=== PATIENT | female | born 1960 | race Caucasian/White ===

== ENCOUNTER 2016-07-16 14:29 | Emergency (ER) | payer BC ==
[~2016-07-16] VITALS: Ht 167.6 cm; Wt 67.1 kg
[~2016-07-16 14:29] MED LIST: /WARF25TA; /WARF5TA; ACET65TA; ADVI200C5 PO; ADVI200T PO; ALBUTEROL INH; ASPI81CH PO; ASPI81TA7 PO; ASPI81TA85 PO; ASPIRIN PO; BACT800T5 PO; CALC500T21 PO; CALC600T21 PO; CALCCHW12; CALCIUM PO; CEFT2INJ IV; DOXY100T OR; FISH1000 PO; FISH100049 PO; FISH500C PO; FLUC10TA PO; GLUC500T; HEPA10PFSY IV; HUMA100I SC; HUMA75VL; HUMALOG INSULIN SC; INSUH10VL INJ; INSUHUMDS SC; INSULANT SC; INSULIN LANTUS SC; INSULIN NPH; INSULIN PUMP; Insulin pump; LANTUS INSULIN SC; LEVA500T; LISI-542 PO; LISI5TAB OR; LISI5TAB PO; METO10TA2 OR; MULTCAP PO; MULTCAP8 PO; MULTIVIT OR; MULTTAB4 PO; NOVOINJ3 SC; NOVOLOG100 MG/ML; OXYC10TA97; PERC5TAB8; PRIN10TA PO; SENO8.6T5; SKELAXIN PO; SLF IV; SYMBICORT INH; TALWIN NX PO; TYLE325T5 PO; VIT D 2000 OR; VIT D PO; VIT E PO; VITA100037 PO; VITA5ELUD PO; VITMTA PO; ZOCO10TA PO; ZOCO20TA PO; ZOFR4TAB3 SL; [UNRECOGNIZED DRUG - OTHER]
[2016-07-16 16:51] LABS: BASO % 0.3 % (0.0-1.0); EOS % 0.5 % (0.0-3.0); LARGE UNSTAINED CELL # 0.1 K/mm3 (0.0-0.4); LARGE UNSTAINED CELL % 1.4 % (0.0-4.0); LYMPH # 0.8 K/mm3 (1.5-4.5); MEAN CORPUSCULAR HEMOGLOBIN 31.4 pg (27.0-33.0); MEAN CORPUSCULAR VOLUME 95.3 fl (80.0-96.0); MONO # 0.3 K/mm3 (0.0-0.8); MONO % 2.8 % (0.0-5.0); NEUTROPHILS # 8.8 K/mm3 (1.8-7.7); NEUTROPHILS % 87.1 % (36.0-66.0); PLATELET COUNT, AUTOMATED 301 k/mm3 (150-450); RED CELL DISTRIBUTION WIDTH 13.8 % (11.5-14.5); WHITE BLOOD COUNT 10.1 K/mm3 (4.0-10.0)
--- NOTE | 2016-07-16 17:15 | REP ---
Duplex extremity venous ultrasound: Left lower extremity. History: Left leg pain and swelling. Findings: The deep veins are anechoic and fully compressible from the groin to the popliteal fossa in the left lower extremity. Color flow imaging is homogeneous. Spectral Doppler interrogation demonstrates intact respiratory variation in flow and normal manual augmentation of flow. There is no evidence of deep vein thrombosis. Impression: Negative left lower extremity duplex venous ultrasound. No evidence of deep vein thrombosis. Signed by Adan Bean MD 07/16/2016 05:07 P
[2016-07-16] MEDS: NS 1,000 ML IV ONE (17:18)
[2016-07-16] MEDS: CLINDAMYCIN 900 MG in APPROPRIATE DILUENT 1 EA IV ONE (17:19)
[2016-07-16 17:40] LABS: CALCIUM LEVEL 9.3 MG/DL (8.5-10.1); CREATININE FOR GFR 1.22 MG/DL (0.55-1.02); GLOMERULAR FILTRATION RATE 48.4 (>51); POTASSIUM SERUM 3.4 MEQ/L (3.5-5.1)
[2016-07-16] MEDS: ONDANSETRON 4MG/2ML VIAL (J2405) IV ONE (17:45)
[2016-07-16] MEDS ORDERED: ONDA4TAB6 PO (18:44)
[2016-07-16] MEDS ORDERED: CLEO300C2 PO (18:44)
[2016-07-16] MEDS ORDERED: NS 1,000 ML IV ONE (19:00)
[2016-07-16] MEDS ORDERED: ONDANSETRON 4MG/2ML VIAL (J2405) IV ONE (19:00)
[2016-07-16] MEDS ORDERED: KETOROLAC 30 MG/ML VIAL (J1885) IV ONE (19:00)
[2016-07-16 19:18] VITALS: BP 135/79
== END 2016-07-16 19:49 | disposition home or self-care (01) ==
LOC: M ED 15:27
DX: L03.116 Cellulitis of left lower limb (principal); R11.0 Nausea; E11.649 Type 2 diabetes mellitus with hypoglycemia without coma; Z79.4 Long term (current) use of insulin
CPT/HCPCS: 80048; 83690; 85025; 87040; 87077; 87186; 93971; 96374; 96375; 96376; 99283; J2405

== ENCOUNTER 2016-07-18 12:05 | Inpatient (IN) | payer BC ==
[~2016-07-18] VITALS: Ht 170.2 cm; Wt 62.5 kg
[~2016-07-18 12:05] MED LIST changes: +CLEO300C2 PO; +ONDA4TAB6 PO
[2016-07-18] MEDS ORDERED: cefTRIAXone SOD 2 GM in D5W MINI-BAG PLUS 50 ML IV ONE (13:00)
[2016-07-18] MEDS ORDERED: VANCOMYCIN HCL 1,000 MG, VIAL MATE ADAPTER 1 EACH in D5W 250 ML IV ONE (13:00)
[2016-07-18 13:46] LABS: BASO % 0.2 % (0.0-1.0); EOS # 0.1 K/mm3 (0.0-0.50); EOS % 0.8 % (0.0-3.0); LARGE UNSTAINED CELL # 0.1 K/mm3 (0.0-0.4); LARGE UNSTAINED CELL % 1.2 % (0.0-4.0); LYMPH # 0.6 K/mm3 (1.5-4.5); LYMPH % 6.8 % (24.0-44.0); MEAN CORPUSCULAR HEMOGLOBIN 31.3 pg (27.0-33.0); MEAN CORPUSCULAR HGB CONC 32.5 g/dl (32.0-36.5); MEAN CORPUSCULAR VOLUME 96.3 fl (80.0-96.0); MONO # 0.3 K/mm3 (0.0-0.8); NEUTROPHILS # 7.5 K/mm3 (1.8-7.7); NEUTROPHILS % 87.9 % (36.0-66.0); PLATELET COUNT, AUTOMATED 344 k/mm3 (150-450); WHITE BLOOD COUNT 8.5 K/mm3 (4.0-10.0)
[2016-07-18 14:12] LABS: ALBUMIN 2.5 GM/DL (3.2-5.2); ALBUMIN/GLOBULIN RATIO 0.6 (1.00-1.93); BILIRUBIN,DIRECT 0.3 MG/DL (0.0-0.2); CALCIUM LEVEL 8.7 MG/DL (8.5-10.1); CREATININE FOR GFR 1.02 MG/DL (0.55-1.02); GLOMERULAR FILTRATION RATE 59.5 (>51); POTASSIUM SERUM 3.9 MEQ/L (3.5-5.1); TOTAL PROTEIN 6.7 GM/DL (6.4-8.2)
[2016-07-18 14:43] LABS: ERYTHROCYTE SEDIMENTATION RATE 82 mm/hr (0-30)
[2016-07-18] MEDS ORDERED: NS 1,000 ML IV ONE (14:45)
[2016-07-18] MEDS ORDERED: HumuLIN R (REGULAR) INSULIN (NovoLIN R) **100U/ML** PER UNIT IV ONE (15:00)
[2016-07-18] MEDS ORDERED: ASPI81TA85 PO (15:06)
[2016-07-18] MEDS ORDERED: INSULANT SC (15:06)
[2016-07-18] MEDS ORDERED: DEXTROSE 50% 50 ML SYRINGE IV PRN (15:30)
[2016-07-18] MEDS ORDERED: GLUCAGON FOR INJ 1 MG VIAL (J1610) SC PRN (15:30)
[2016-07-18] MEDS ORDERED: GLUCOSE 4 GM CHEW TABLET PO PRN (15:30)
[2016-07-18] MEDS ORDERED: ACETAMINOPHEN TAB 650MG DOSE (2X325MG) PO PRN (15:30)
--- NOTE | 2016-07-18 16:12 | HPE ---
DATE OF ADMISSION: 07/18/2016 PRIMARY CARE PROVIDER: Dr. Yordan Leonard at [facility]. CHIEF COMPLAINT: Left foot infection. HISTORY OF PRESENT ILLNESS: This is a 55-year-old female patient with underlying medical history of hypertension, insulin-dependent diabetes with history of diabetic ketoacidosis (DKA) and hypoglycemia. Patient was seen in the emergency room on July 16 this month for left lower extremity, left foot, around the ankle area and shields area, redness and swelling. Had an ultrasound Doppler that is negative for deep vein thrombosis (DVT). Started on clindamycin for treatment. Subsequently discharged from the emergency room. Was sent in again by primary care provider for worsening redness extending up to shields. As per patient, initially was around the ankle. Patient denies any trauma to the area. No recent travel. No sick contacts. No scratches. No injury. Ultrasound Doppler on July 16 negative for DVT. Patient sees Dr. Momin for podiatry. Patient denies any fevers or chills. Denies any chest pain, pressure, or discomfort, palpitations, trouble breathing. Denies any nausea or vomiting. Tolerating oral. No prolonged immobility. Baseline ambulatory. ALLERGIES: PENICILLIN with hives, and eggs. PAST MEDICAL HISTORY: 1. Hypertension. 2. Insulin-dependent diabetes. 3. Dyslipidemia. 4. History of DKA and hypoglycemia. PAST SURGICAL HISTORY: 1. Tonsillectomy. 2. Cataract surgery. 3. section. 4. Left hip surgery years ago. SOCIAL HISTORY: Patient denies smoking, alcohol, drinking, intravenous (IV) drug use. Lives at home with family. FAMILY HISTORY: Noncontributory. REVIEW OF SYSTEMS: Negative except for those mentioned in the history of present illness (HPI). HOME MEDICATIONS: - aspirin 81 mg by mouth daily - calcium carbonate 600 mg by mouth daily - clindamycin 300 mg by mouth four times a day - fish oil 1000 mg by mouth daily - Lantus 23 units subcutaneous at bedtime - Humalog subcutaneous before meals and at bedtime - lisinopril 5 mg by mouth daily - multivitamin one tablet by mouth daily - vitamin D 1000 units by mouth daily PHYSICAL EXAMINATION: VITAL SIGNS: Temperature 97.8, pulse 100, respirations 16, blood pressure 94/53, pulse oximetry 96% on room air. GENERAL: Patient alert and oriented times three in no acute distress. HEENT: Normocephalic, atraumatic. PULMONARY: Bilaterally clear to auscultation. Cardiac Regular rate and rhythm. Normal S1, S2. ABDOMEN: Soft, nontender, nondistended. Positive bowel sounds. EXTREMITIES: Right lower extremity first digit with a cut. Does not look erythematous. Healing. Left lower extremity from the dorsum of the foot extending up to the lower one-third shields with erythema and warmth, mild swelling. Mildly tender to palpation. No abscess or induration detected. LABORATORY DATA: WBC 8.5, hemoglobin and hematocrit 13.1/40.4, platelets 344. ESR 82. CRP 11.1. Sodium 135, potassium 3.9, chloride 99, bicarbonate 23, BUN 13, creatinine 1.02, glucose 445. ASSESSMENT AND PLAN: This is a 73-year-old female patient with underlying medical history of diabetes, hypertension, history of diabetic ketoacidosis (DKA), admitted with left lower extremity cellulitis. 1. Lower extremity edema cellulitis. Patient not septic. Culture has been reviewed. Previously culture Staphylococcus aureus resistant to clindamycin. Will put the patient on Teflaro right now. Patient received Rocephin and azithromycin by emergency room. Intravenous (IV) fluids for hydration. Followup cultures. Currently preliminarily growing Staphylococcus aureus. Lactic acid negative. Will followup C-reactive protein. 2. Hyperglycemia with borderline anion gap and diabetes. Followup A1c, IV fluids. Insulin 6 units given. Fingersticks every 2 hours. Will continue to monitor to see if patient requires insulin drip. In the meantime, will continue Lantus basal bolus insulin, followup fingersticks. 3. Hypertension. Patient currently normotensive. Continue home medication and aspirin. 4. Deep vein thrombosis (DVT) prophylaxis. Lovenox subcutaneous. DISPOSITION: Pending clinical improvement, final cultures.
[2016-07-18 17:10] VITALS: BP 116/58
[2016-07-18] MEDS: HumaLOG INSULIN (NovoLOG) PER UNIT SC SCH ×2 (17:11→20:51)
[2016-07-18] MEDS: NS 1,000 ML IV SCH (17:11)
[2016-07-18] MEDS: ENOXAPARIN 30 MG/0.3 ML SYR (J1650) SC SCH (17:11)
[2016-07-18] MEDS: DOCUSATE SODIUM 100 MG CAP PO SCH (20:44)
[2016-07-18] MEDS: CEFTAROLINE FOSAMIL 600 MG in D5W MINI-BAG PLUS 50 ML IV SCH (20:52)
[2016-07-18] MEDS ORDERED: LEVEMIR (INSULIN DETEMIR) 1 UNITS/0.01ML SC SCH (21:00)
[2016-07-18 22:00] VITALS: BP 106/55
[2016-07-19] MEDS: NS 1,000 ML IV SCH ×2 (02:15→12:48)
[2016-07-19 06:00] VITALS: BP 115/54
[2016-07-19 06:26] LABS: MEAN CORPUSCULAR HEMOGLOBIN 31.6 pg (27.0-33.0); MEAN CORPUSCULAR HGB CONC 33.3 g/dl (32.0-36.5); MEAN CORPUSCULAR VOLUME 94.8 fl (80.0-96.0); RED CELL DISTRIBUTION WIDTH 13.1 % (11.5-14.5); WHITE BLOOD COUNT 8.3 K/mm3 (4.0-10.0)
[2016-07-19 06:51] LABS: ANION GAP 7 MEQ/L (8-16); BLOOD UREA NITROGEN 11 MG/DL (7-18); CALCIUM LEVEL 8.3 MG/DL (8.5-10.1); CARBON DIOXIDE LEVEL 27 MEQ/L (21-32); CHLORIDE LEVEL 106 MEQ/L (98-107); CREATININE FOR GFR 0.51 MG/DL (0.55-1.02); GLOMERULAR FILTRATION RATE > 60.0 (>51); GLUCOSE, FASTING 65 MG/DL (70-105); POTASSIUM SERUM 4.1 MEQ/L (3.5-5.1); SODIUM LEVEL 140 MEQ/L (136-145)
[2016-07-19] MEDS: HumaLOG INSULIN (NovoLOG) PER UNIT SC SCH ×4 (07:30→20:45)
[2016-07-19] MEDS: CEFTAROLINE FOSAMIL 600 MG in D5W MINI-BAG PLUS 50 ML IV SCH ×2 (08:47→20:44)
[2016-07-19] MEDS: ENOXAPARIN 30 MG/0.3 ML SYR (J1650) SC SCH (08:48)
[2016-07-19] MEDS: ASPIRIN 81 MG ENTERIC TAB PO SCH (08:48)
[2016-07-19] MEDS: VITAMIN D 1,000 INTERNATIONAL UNITS TABLET PO SCH (08:48)
[2016-07-19] MEDS: LISINOPRIL 5 MG TAB PO SCH (08:48)
[2016-07-19] MEDS: OMEGA-3 1050MG CAPSULE PO SCH (08:48)
[2016-07-19] MEDS: MULTIVITAMINS/MINERALS THERAP 1 TAB PO SCH (08:48)
[2016-07-19] MEDS: DOCUSATE SODIUM 100 MG CAP PO SCH ×2 (08:48→20:43)
[2016-07-19 14:00] VITALS: BP 120/60
--- NOTE | 2016-07-19 15:25 | IPN ---
DATE: 07/19/2016 Patient is seen and examined. No acute events overnight. Denies any fever, chills, chest pain, pressure, or discomfort. Reported left lower extremity cellulitis much improved. Denies any significant pain, tolerating oral. VITAL SIGNS: Temperature 99.6, maximum temperature (Tmax) 103, pulse 85, respirations 18, blood pressure 115/54, pulse oximetry 97% on room air. LABORATORY DATA: WBC 8.3, hemoglobin and hematocrit 11.8/35.5, platelets 395. Chemistry: Sodium 140, potassium 4.1, chloride 106, bicarbonate 27, BUN 11, creatinine 0.5, A1c 13.1, C-reactive protein 8.8. PHYSICAL EXAMINATION: GENERAL: Patient alert and oriented times three, in no acute distress, frail. PULMONARY: Bilaterally clear to auscultation. CARDIAC: Regular rate and rhythm, normal S1, S2. ABDOMEN: Soft, nontender, nondistended. Positive bowel sounds. EXTREMITIES: Right lower extremity first digit cut, does not look erythematous, healing. Left lower extremity from dorsum of the foot extending up to lower shields with erythema and warmth, much improved. ASSESSMENT AND PLAN: This is a 55-year-old female patient with underlying medical history of diabetes, hypertension, history of diabetic ketoacidosis (DKA), admitted for left lower extremity cellulitis. 1. Left lower extremity cellulitis. Patient is not septic. Failure of outpatient treatment. Patient currently on Teflaro. Previous culture positive for Staphylococcus aureus that is resistant to clindamycin. At this time culture shows Staphylococcus aureus is sensitive to clindamycin but currently will continue Teflaro. Intravenous (IV) fluids have been given. Patient received Rocephin and vancomycin in the emergency room. Lactic acid negative. If patient continues to improve, will discharge the patient on oral medications tomorrow. Followup C-reactive protein. 2. Hyperglycemia with borderline anion gap and diabetes. Anion gap has returned to normal. A1c is still elevated. Counseling patient regarding importance of glucose control. Needs close outpatient followup. Intravenous (IV) fluids initially provided. Currently on basal bolus insulin, followup finger sticks, adjust as needed. 3. Hypertension. Currently normotensive. Continue home medications and aspirin. 4. Deep venous thrombosis (DVT) prophylaxis. Lovenox subcutaneous. DISPOSITION PLANNING: Pending clinical improvement. Likely discharge in the next 24-48 hours.
[2016-07-19] MEDS ORDERED: LEVEMIR (INSULIN DETEMIR) 1 UNITS/0.01ML SC SCH ×2 (21:00)
[2016-07-19 22:00] VITALS: BP 118/65
[2016-07-20 06:00] VITALS: BP 131/68
[2016-07-20 06:22] LABS: MEAN CORPUSCULAR HEMOGLOBIN 32.2 pg (27.0-33.0); MEAN CORPUSCULAR HGB CONC 33.4 g/dl (32.0-36.5); MEAN CORPUSCULAR VOLUME 96.2 fl (80.0-96.0); RED CELL DISTRIBUTION WIDTH 13.4 % (11.5-14.5)
[2016-07-20 06:40] LABS: ANION GAP 9 MEQ/L (8-16); BLOOD UREA NITROGEN 8 MG/DL (7-18); CALCIUM LEVEL 8.2 MG/DL (8.5-10.1); CARBON DIOXIDE LEVEL 25 MEQ/L (21-32); CHLORIDE LEVEL 108 MEQ/L (98-107); CREATININE FOR GFR 0.46 MG/DL (0.55-1.02); GLOMERULAR FILTRATION RATE > 60.0 (>51); GLUCOSE, FASTING 70 MG/DL (70-105); MAGNESIUM LEVEL 2.1 MG/DL (1.8-2.4); POTASSIUM SERUM 3.9 MEQ/L (3.5-5.1); SODIUM LEVEL 142 MEQ/L (136-145)
[2016-07-20] MEDS: HumaLOG INSULIN (NovoLOG) PER UNIT SC SCH (07:30)
[2016-07-20] MEDS: MULTIVITAMINS/MINERALS THERAP 1 TAB PO SCH (08:05)
[2016-07-20] MEDS: ENOXAPARIN 30 MG/0.3 ML SYR (J1650) SC SCH (08:05)
[2016-07-20] MEDS: ASPIRIN 81 MG ENTERIC TAB PO SCH (08:05)
[2016-07-20] MEDS: OMEGA-3 1050MG CAPSULE PO SCH (08:05)
[2016-07-20] MEDS: CEFTAROLINE FOSAMIL 600 MG in D5W MINI-BAG PLUS 50 ML IV SCH (08:05)
[2016-07-20 08:06] VITALS: BP 131/68
[2016-07-20] MEDS: VITAMIN D 1,000 INTERNATIONAL UNITS TABLET PO SCH (08:06)
[2016-07-20] MEDS: DOCUSATE SODIUM 100 MG CAP PO SCH (08:06)
[2016-07-20] MEDS: LISINOPRIL 5 MG TAB PO SCH (08:06)
[2016-07-20] MEDS ORDERED: DOXY-278 PO (08:26)
[2016-07-20] MEDS ORDERED: CEFD1CAP8 PO (08:26)
--- NOTE | 2016-07-20 10:50 | DSES ---
DATE OF ADMISSION: 07/18/2016 DATE OF DISCHARGE: 07/20/2016 PRIMARY CARE PROVIDER: Yordan Leonard at the resident [facility]. FINAL DIAGNOSES: Left lower extremity cellulitis. Poorly controlled diabetes with hypoglycemia. Hypertension. HISTORY OF PRESENT ILLNESS: This is a 55-year-old female patient with underlying medical history of hypertension, insulin dependent diabetes with history of diabetic ketoacidosis (DKA) and hypoglycemia. The patient was seen in the emergency room on 07/16/2016 for left lower extremity cellulitis involving around the ankle and significant redness and swelling. Ultrasound Doppler was negative for deep vein thrombosis (DVT). The patient was placed on clindamycin for treatment. Subsequently discharged from the emergency room. Was sent in by primary care provider for worsening redness extending up to the higher level. As per patient, initially it was around the ankle, currently progressing to shields. No trauma to the area. No recent travel or sick contacts. No scratches or injury. Skin does appear to be dry. The patient sees Dr. Momin for podiatry. Denies any fevers or chills, chest pain, pressure or discomfort, nausea or vomiting. Tolerating oral. HOSPITAL COURSE: The patient was admitted to the hospital and initially started Teflaro. Cultures from 07/16/2016 have been appreciated with Staphylococcus Aureus. Previous culture revealed the patient previously had Staphylococcus Aureus that was resistant to clindamycin. Fortunately, this time the Staphylococcus Aureus was sensitive to clindamycin. Patient on Teflaro with no complications. Does have nonspecific penicillin allergies. Methicillin-resistant Staphylococcus aureus (MRSA) screening negative with resolution of C-reactive protein. The patient's sugars are better controlled after additional insulin dose and IV fluids. A1c was shown to be 13.1. The patient's fasting glucose was on the lower side, but the patient's glucose throughout the day has been elevated at 200 to 300 range. Counseling was provided. Patient continues comfortable, afebrile. Tolerating oral in no acute distress. VITAL SIGNS: Temperature 98.5, pulse 82, respirations 17, blood pressure 131/68, pulse oximetry 96% on room air. LABORATORIES: WBC 6, hemoglobin and hematocrit 11/33, platelets 356. Chemistries: Sodium 142, potassium 3.9, chloride 108, bicarb 25, BUN 8, creatinine 0.46, C-reactive protein from 11.1 down to 5.23. DISCHARGE MEDICATIONS: - cefdinir 300 mg by mouth twice a day - doxycycline 100 mg by mouth twice a day for 10 more days Continue home medications of: - aspirin 81 mg by mouth daily - calcium carbonate 600 mg by mouth daily - fish oil 1000 mg by mouth daily - Lantus insulin 23 units subcu at bedtime - Humalog mealtime via scale - lisinopril 5 mg by mouth daily - multivitamin one tablet by mouth daily - vitamin D 1000 units by mouth daily has been continued DISCHARGE INSTRUCTIONS: The patient was instructed to followup with primary care provider in seven days. Return to the hospital if symptoms worsen and also instructed to take a fingerstick log and followup with marble coper for better control of patient's glucose. Given patient's fingerstick during her hospital stay, the patient probably will need a lot more mealtime coverage with reduced basal coverage.
== END 2016-07-20 10:16 | disposition home or self-care (01) | DRG 383 ==
LOC: M ED 13:30 → M ED INP 15:27 → M MSPAV 17:01
PROVIDERS: ADMIT Hospitalist; ATTEND Hospitalist
DX: L03.116 Cellulitis of left lower limb (principal); E11.65 Type 2 diabetes mellitus with hyperglycemia; I10 Essential (primary) hypertension; B95.61 Methicillin susceptible Staphylococcus aureus infection as the cause of diseases classified elsewhere; Z79.82 Long term (current) use of aspirin; Z79.899 Other long term (current) drug therapy; Z79.4 Long term (current) use of insulin; Z88.0 Allergy status to penicillin; Z91.012 Allergy to eggs

== ENCOUNTER 2016-07-24 19:28 | Emergency (ER) | payer BC ==
[~2016-07-24] VITALS: Ht 170.2 cm; Wt 68.0 kg
[~2016-07-24 19:28] MED LIST changes: +CEFD1CAP8 PO; +DOXY-278 PO
[2016-07-24] MEDS ORDERED: NS 500 ML IV ONE (21:45)
[2016-07-24] MEDS ORDERED: ONDANSETRON 4 MG ORAL DISINTEGRATING TAB (S0181) PO ONE (21:45)
[2016-07-24] MEDS ORDERED: ONDANSETRON 4MG/2ML VIAL (J2405) IV ONE (21:45)
[2016-07-24 22:54] LABS: MEAN CORPUSCULAR HEMOGLOBIN 31.8 pg (27.0-33.0); MEAN CORPUSCULAR HGB CONC 32.8 g/dl (32.0-36.5); MEAN CORPUSCULAR VOLUME 96.9 fl (80.0-96.0); RED CELL DISTRIBUTION WIDTH 13.3 % (11.5-14.5); WHITE BLOOD COUNT 3.9 K/mm3 (4.0-10.0)
[2016-07-24 23:19] LABS: ALBUMIN 2.4 GM/DL (3.2-5.2); ALBUMIN/GLOBULIN RATIO 0.57 (1.00-1.93); ALKALINE PHOSPHATASE 133 U/L (45-117); ALT/SGPT 11 U/L (12-78); ANION GAP 9 MEQ/L (8-16); AST/SGOT 13 U/L (15-37); BILIRUBIN,DIRECT 0.1 MG/DL (0.0-0.2); BILIRUBIN,TOTAL 0.4 MG/DL (0.2-1.0); BLOOD UREA NITROGEN 9 MG/DL (7-18); CALCIUM LEVEL 8.4 MG/DL (8.5-10.1); CARBON DIOXIDE LEVEL 28 MEQ/L (21-32); CHLORIDE LEVEL 101 MEQ/L (98-107); CREATININE FOR GFR 0.63 MG/DL (0.55-1.02); GLOMERULAR FILTRATION RATE > 60.0 (>51); GLUCOSE, FASTING 136 MG/DL (70-105); POTASSIUM SERUM 3.9 MEQ/L (3.5-5.1); SODIUM LEVEL 138 MEQ/L (136-145); TOTAL PROTEIN 6.6 GM/DL (6.4-8.2)
[2016-07-24 23:48] VITALS: BP 150/85
== END 2016-07-24 23:58 | disposition home or self-care (01) ==
LOC: M ED 20:18
DX: K29.70 Gastritis, unspecified, without bleeding (principal); E11.9 Type 2 diabetes mellitus without complications; Z88.0 Allergy status to penicillin; Z91.012 Allergy to eggs; Z79.4 Long term (current) use of insulin; Z79.899 Other long term (current) drug therapy; Z79.82 Long term (current) use of aspirin; R51 Headache; E78.00 Pure hypercholesterolemia, unspecified; I10 Essential (primary) hypertension; E03.9 Hypothyroidism, unspecified
CPT/HCPCS: 36415; 80048; 80076; 85027; 96374; 99283; J2405

== ENCOUNTER → 2017-04-01 | Outpatient (CLI) | payer BC ==
[~2017-04-01] MED LIST changes: -CALC600T21 PO; +CALC600T60 PO; +CIPR-249 PO; +FLUTISP; +MUCI600T37 PO; +OCEA0.654; -VITA100037 PO; +VITA100067 PO
[2017-04-01 17:34] LABS: ALBUMIN 2.8 GM/DL (3.2-5.2); ALBUMIN/GLOBULIN RATIO 0.74 (1.00-1.93); ALKALINE PHOSPHATASE 117 U/L (45-117); ALT/SGPT 45 U/L (12-78); ANION GAP 8 MEQ/L (8-16); AST/SGOT 23 U/L (7-37); BILIRUBIN,TOTAL 1.1 MG/DL (0.2-1.0); BLOOD UREA NITROGEN 10 MG/DL (7-18); CALCIUM LEVEL 8.4 MG/DL (8.5-10.1); CARBON DIOXIDE LEVEL 28 MEQ/L (21-32); CHLORIDE LEVEL 103 MEQ/L (98-107); CREATININE FOR GFR 0.57 MG/DL (0.55-1.02); GLOMERULAR FILTRATION RATE > 60.0 (>51); GLUCOSE, FASTING 297 MG/DL (70-105); POTASSIUM SERUM 4.7 MEQ/L (3.5-5.1); SODIUM LEVEL 139 MEQ/L (136-145); TOTAL PROTEIN 6.6 GM/DL (6.4-8.2)
[2017-04-01 17:47] LABS: BASO % 1.1 % (0.0-1.0); EOS # 0.1 10^3/uL (0.0-0.50); EOS % 4.2 % (0.0-3.0); IMMATURE GRANULOCYTE % 0.4 % (0-0); LYMPH # 0.8 10^3/uL (1.5-4.5); LYMPH % 28.8 % (24.0-44.0); MEAN CORPUSCULAR HEMOGLOBIN 30.5 pg (27.0-33.0); MEAN CORPUSCULAR HGB CONC 31.9 g/dl (32.0-36.5); MEAN CORPUSCULAR VOLUME 95.6 fl (80.0-96.0); MONO # 0.2 10^3/uL (0.0-0.8); MONO % 8.1 % (0.0-5.0); NEUTROPHILS # 1.6 10^3/uL (1.8-7.7); NEUTROPHILS % 57.4 % (36.0-66.0); PLATELET COUNT, AUTOMATED 167 10^3/uL (150-450); RED CELL DISTRIBUTION WIDTH 14.3 % (11.5-14.5); WHITE BLOOD COUNT 2.9 10^3/uL (4.0-10.0)
== END ==
LOC: M WUC 14:35
PROVIDERS: ATTEND Student in an Organized Health Care Education/Training Program
DX: E10.621 Type 1 diabetes mellitus with foot ulcer (principal); R79.89 Other specified abnormal findings of blood chemistry

== ENCOUNTER → 2017-04-02 | Outpatient (REF) | payer BC | LOC: M SFHCPLAZ 11:58 | PROVIDERS: ATTEND Neuromusculoskeletal Medicine & OMM | DX: R60.0 Localized edema (principal) ==

== ENCOUNTER → 2017-04-15 | Outpatient (REF) | payer BC | LOC: M LAB REF 16:09 | PROVIDERS: ATTEND Surgery | DX: E10.621 Type 1 diabetes mellitus with foot ulcer (principal) ==

== ENCOUNTER → 2017-04-21 | Outpatient (CLI) | payer BC | LOC: M RAD 13:06 | PROVIDERS: ATTEND Surgery | DX: L97.512 Non-pressure chronic ulcer of other part of right foot with fat layer exposed (principal) ==

== ENCOUNTER 2017-06-01 05:01 | Emergency (ER) | payer BC ==
[2017-06-01 05:51] LABS: BEDSIDE GLUCOSE 182 MG/DL (70-105)
[2017-06-01 05:55] LABS: BASO % 0.3 % (0.0-1.0); HEMATOCRIT 41.6 % (36.0-47.0); HEMOGLOBIN 13.5 g/dl (12.0-16.0); IMMATURE GRANULOCYTE % 0.3 % (0-0); LYMPH # 0.7 10^3/uL (1.5-4.5); LYMPH % 17.6 % (24.0-44.0); MEAN CORPUSCULAR HEMOGLOBIN 29.6 pg (27.0-33.0); MEAN CORPUSCULAR HGB CONC 32.5 g/dl (32.0-36.5); MEAN CORPUSCULAR VOLUME 91.2 fl (80.0-96.0); MONO # 0.2 10^3/uL (0.0-0.8); MONO % 6.1 % (0.0-5.0); NEUTROPHILS # 2.8 10^3/uL (1.8-7.7); NEUTROPHILS % 75.7 % (36.0-66.0); PLATELET COUNT, AUTOMATED 168 10^3/uL (150-450); RED BLOOD COUNT 4.56 10^6/uL (4.00-5.40); RED CELL DISTRIBUTION WIDTH 13.6 % (11.5-14.5); WHITE BLOOD COUNT 3.7 10^3/uL (4.0-10.0)
[2017-06-01 06:17] LABS: ANION GAP 6 MEQ/L (8-16); BLOOD UREA NITROGEN 22 MG/DL (7-18); CARBON DIOXIDE LEVEL 29 MEQ/L (21-32); CHLORIDE LEVEL 103 MEQ/L (98-107); CREATININE FOR GFR 0.72 MG/DL (0.55-1.02); GLOMERULAR FILTRATION RATE > 60.0 (>51); GLUCOSE, FASTING 185 MG/DL (70-100); POTASSIUM SERUM 5.1 MEQ/L (3.5-5.1); SODIUM LEVEL 138 MEQ/L (136-145)
[2017-06-01 06:17] LABS: AMMONIA < 10 uMOL/L (<32)
[2017-06-01 06:21] LABS: LACTIC ACID SEPSIS PROTOCOL 2.4 MMOL/L (0.4-2.0)
[2017-06-01] MEDS: NS 1,000 ML IV (06:45)
[2017-06-01 06:55] LABS: APPEARANCE, URINE CLEAR (CLEAR); BACTERIA, URINE AUTO NEGATIVE (NEGATIVE); BILIRUBIN, URINE AUTO NEGATIVE (NEGATIVE); BLOOD, URINE BLOOD 1+ (NEGATIVE); COLOR, URINE YELLOW (YELLOW); GLUCOSE, URINE (UA) AUTO 2+ mg/dL (NEGATIVE); KETONE, URINE AUTO NEGATIVE (NEGATIVE); LEUKOCYTE ESTERASE, URINE AUTO NEGATIVE (NEGATIVE); NITRITE, URINE AUTO NEGATIVE (NEGATIVE); PROTEIN, URINE AUTO 2+ mg/dL (NEGATIVE); RBC, URINE AUTO 2 /HPF (0-3); SPECIFIC GRAVITY URINE AUTO 1.017 (1.002-1.035); SQUAMOUS EPITHELIAL CELL UR AU 0 /HPF (0-6); UROBILINOGEN, URINE AUTO 0.2 mg/dL (0.0-2.0); WBC, URINE AUTO 2 /HPF (0-3)
[2017-06-01] MEDS: ACETAMINOPHEN TAB 650MG DOSE (2X325MG) PO (09:43)
[2017-06-01 10:19] LABS: INFLUENZA A AMPLIFICATION NEGATIVE (NEGATIVE); INFLUENZA B AMPLIFICATION NEGATIVE (NEGATIVE)
== END 2017-06-01 10:47 | disposition home or self-care (01) ==
LOC: M ED 05:01
DX: R53.83 Other fatigue (principal); E86.0 Dehydration; E11.9 Type 2 diabetes mellitus without complications; I10 Essential (primary) hypertension; Z86.31 Personal history of diabetic foot ulcer; Z79.4 Long term (current) use of insulin; Z79.899 Other long term (current) drug therapy; Z91.012 Allergy to eggs; Z88.0 Allergy status to penicillin
CPT/HCPCS: 71045

== ENCOUNTER → 2017-09-02 | Outpatient (REF) | payer BC | LOC: M LAB REF 09-03 13:20 | DX: E10.621 Type 1 diabetes mellitus with foot ulcer (principal) | CPT/HCPCS: 87186 ==

== ENCOUNTER → 2017-10-22 | Outpatient (CLI) | payer BC | LOC: M SLEEP 19:40 | DX: G47.33 Obstructive sleep apnea (adult) (pediatric) (principal) | CPT/HCPCS: 95810 ==

== ENCOUNTER → 2017-11-11 | Outpatient (REF) | payer BC | LOC: M LAB REF 13:58 | DX: E10.621 Type 1 diabetes mellitus with foot ulcer (principal) | CPT/HCPCS: 88305 ==

== ENCOUNTER → 2017-11-18 | Outpatient (REF) | payer BC ==
[2017-11-18 18:45] LABS: ALBUMIN/GLOBULIN RATIO 0.79 (1.00-1.93); ALKALINE PHOSPHATASE 78 U/L (45-117); ALT/SGPT 14 U/L (12-78); ANION GAP 9 MEQ/L (8-16); AST/SGOT 9 U/L (7-37); BILIRUBIN,TOTAL 0.7 MG/DL (0.2-1.0); BLOOD UREA NITROGEN 22 MG/DL (7-18); CALCIUM LEVEL 8.8 MG/DL (8.5-10.1); CARBON DIOXIDE LEVEL 29 MEQ/L (21-32); CHLORIDE LEVEL 107 MEQ/L (98-107); CREATININE FOR GFR 0.86 MG/DL (0.55-1.30); GLOMERULAR FILTRATION RATE > 60.0 (>51); GLUCOSE, FASTING 181 MG/DL (70-100); POTASSIUM SERUM 3.7 MEQ/L (3.5-5.1); SODIUM LEVEL 145 MEQ/L (136-145); TOTAL PROTEIN 6.8 GM/DL (6.4-8.2)
[2017-11-18 18:49] LABS: ESTIMATED AVERAGE GLUCOSE 235 MG/DL (60-110); HEMOGLOBIN A1c 9.8 %
[2017-11-18 19:15] LABS: HEMATOCRIT 38.2 % (36.0-47.0); HEMOGLOBIN 12.2 g/dl (12.0-15.5); MEAN CORPUSCULAR HGB CONC 31.9 g/dl (32.0-36.5); MEAN CORPUSCULAR VOLUME 90.7 fl (80.0-96.0); PLATELET COUNT, AUTOMATED 223 10^3/uL (150-450); RED BLOOD COUNT 4.21 10^6/uL (4.00-5.40); RED CELL DISTRIBUTION WIDTH 13.8 % (11.5-14.5); WHITE BLOOD COUNT 3.3 10^3/uL (4.0-10.0)
== END ==
LOC: M LAB REF 17:53
DX: E10.621 Type 1 diabetes mellitus with foot ulcer (principal)

== ENCOUNTER → 2017-11-20 | Outpatient (CLI) | payer BC | LOC: M RAD 06:30 | DX: L97.529 Non-pressure chronic ulcer of other part of left foot with unspecified severity (principal) | CPT/HCPCS: 93926 ==

== ENCOUNTER 2017-11-25 11:57 | Day surgery (SDC) | payer BC ==
[~2017-11-25 11:57] MED LIST changes: -/WARF25TA; -/WARF5TA; -ACET65TA; -ADVI200C5 PO; -ADVI200T PO; -ALBUTEROL INH; -ASPI81CH PO; -ASPI81TA7 PO; -ASPI81TA85 PO; -ASPIRIN PO; -BACT800T5 PO; -CALC500T21 PO; -CALC600T60 PO; -CALCCHW12; -CALCIUM PO; -CEFD1CAP8 PO; -CEFT2INJ IV; -CIPR-249 PO; -CLEO300C2 PO; -DOXY-278 PO; -DOXY100T OR; -FISH1000 PO; -FISH100049 PO; -FISH500C PO; -FLUC10TA PO; -FLUTISP; -GLUC500T; -HEPA10PFSY IV; -HUMA100I SC; -HUMA75VL; -HUMALOG INSULIN SC; -INSUH10VL INJ; -INSUHUMDS SC; -INSULANT SC; -INSULIN LANTUS SC; -INSULIN NPH; -INSULIN PUMP; -Insulin pump; -LANTUS INSULIN SC; -LEVA500T; +LIDOCAINE 2% MDV 20 ML VIAL As Ordered; -LISI-542 PO; -LISI5TAB OR; -LISI5TAB PO; -METO10TA2 OR; -MUCI600T37 PO; -MULTCAP PO; -MULTCAP8 PO; -MULTIVIT OR; -MULTTAB4 PO; -NOVOINJ3 SC; -NOVOLOG100 MG/ML; -OCEA0.654; -ONDA4TAB6 PO; -OXYC10TA97; -PERC5TAB8; -PRIN10TA PO; +PROPOFOL 200 MG/20 ML VIAL As Ordered; -SENO8.6T5; -SKELAXIN PO; -SLF IV; -SYMBICORT INH; -TALWIN NX PO; -TYLE325T5 PO; -VIT D 2000 OR; -VIT D PO; -VIT E PO; -VITA100067 PO; -VITA5ELUD PO; -VITMTA PO; -ZOCO10TA PO; -ZOCO20TA PO; -ZOFR4TAB3 SL; -[UNRECOGNIZED DRUG - OTHER]
[2017-11-25] MEDS: NS 1,000 ML IV (13:00)
[2017-11-25 13:07] LABS: BEDSIDE GLUCOSE 115 MG/DL (70-105)
== END 2017-11-25 14:35 | disposition home or self-care (01) ==
LOC: M OPP 11:57
DX: Z12.11 Encounter for screening for malignant neoplasm of colon (principal); I10 Essential (primary) hypertension; E10.8 Type 1 diabetes mellitus with unspecified complications; I27.20 Pulmonary hypertension, unspecified; Z79.4 Long term (current) use of insulin; Z79.899 Other long term (current) drug therapy; Z88.8 Allergy status to other drugs, medicaments and biological substances; Z91.030 Bee allergy status; Z91.012 Allergy to eggs; Z91.038 Other insect allergy status; Z83.3 Family history of diabetes mellitus; Z80.3 Family history of malignant neoplasm of breast; Z80.42 Family history of malignant neoplasm of prostate
CPT/HCPCS: 45378

== ENCOUNTER → 2017-12-07 | Outpatient (CLI) | payer BC | LOC: M SLEEP 19:36 | DX: G47.33 Obstructive sleep apnea (adult) (pediatric) (principal) | CPT/HCPCS: 95811 ==

== ENCOUNTER → 2018-01-29 | Outpatient (REF) | payer BC | LOC: M LAB REF 17:30 | DX: L03.032 Cellulitis of left toe (principal) | CPT/HCPCS: 87186 ==

== ENCOUNTER → 2018-04-15 | Outpatient (REF) | payer BC ==
[2018-04-15 15:45] LABS: HEMOGLOBIN 11.5 g/dl (12.0-15.5); MEAN CORPUSCULAR HGB CONC 32.9 g/dl (32.0-36.5); MEAN CORPUSCULAR VOLUME 91.4 fl (80.0-96.0); PLATELET COUNT, AUTOMATED 142 10^3/uL (150-450); RED BLOOD COUNT 3.83 10^6/uL (4.00-5.40); RED CELL DISTRIBUTION WIDTH 14.3 % (11.5-14.5); WHITE BLOOD COUNT 3.4 10^3/uL (4.0-10.0)
[2018-04-15 16:07] LABS: ALBUMIN 3.2 GM/DL (3.2-5.2); ALKALINE PHOSPHATASE 62 U/L (45-117); ALT/SGPT 14 U/L (12-78); ANION GAP 3 MEQ/L (8-16); AST/SGOT 10 U/L (7-37); BILIRUBIN,TOTAL 0.7 MG/DL (0.2-1.0); BLOOD UREA NITROGEN 20 MG/DL (7-18); CALCIUM LEVEL 8.6 MG/DL (8.5-10.1); CARBON DIOXIDE LEVEL 33 MEQ/L (21-32); CHLORIDE LEVEL 108 MEQ/L (98-107); CREATININE FOR GFR 0.92 MG/DL (0.55-1.30); GLOMERULAR FILTRATION RATE > 60.0 (>51); GLUCOSE, FASTING 145 MG/DL (70-100); POTASSIUM SERUM 4.5 MEQ/L (3.5-5.1); SODIUM LEVEL 144 MEQ/L (136-145); TOTAL PROTEIN 6.4 GM/DL (6.4-8.2)
[2018-04-15 16:10] LABS: ESTIMATED AVERAGE GLUCOSE 209 MG/DL (60-110); HEMOGLOBIN A1c 8.9 %
== END ==
LOC: M SFHCPLAZ 14:33
DX: E10.29 Type 1 diabetes mellitus with other diabetic kidney complication (principal); I10 Essential (primary) hypertension
CPT/HCPCS: 80053

== ENCOUNTER 2018-06-22 15:07 | Inpatient (IN) | payer BC ==
[2018-06-21 23:07] VITALS: BP 186/94
[~2018-06-22] VITALS: Ht 170.2 cm; Wt 78.4 kg
[~2018-06-22 15:07] MED LIST changes: +/WARF25TA; +/WARF5TA; +ACET65TA; +ADVI200C5 PO; +ADVI200T PO; +ALBUTEROL INH; +ASPI81CH PO; +ASPI81TA7 PO; +ASPI81TA85 PO; +ASPIRIN PO; +BACT800T5 PO; +BYST2.5T2 PO; +CALC500T21 PO; +CALC600T60 PO; +CALCCHW12; +CALCIUM PO; +CEFD1CAP8 PO; +CEFT2INJ IV; +CIPR-249 PO; +CLEO300C2 PO; +DOXY-350 PO; +DOXY100T OR; +FISH1000 PO; +FISH100049 PO; +FISH500C PO; +FLUC10TA PO; +FLUTISP; +FURO20TA2 PO; +GLUC500T; +HEPA10PFSY IV; +HUMA100I SC; +HUMA75VL; +HUMALOG INSULIN SC; +INSUH10VL INJ; +INSUHUMDS SC; +INSULANT SC; +INSULIN LANTUS SC; +INSULIN NPH; +INSULIN PUMP; +Insulin pump; +LANTINJ4 SC; +LANTUS INSULIN SC; +LEVA500T; -LIDOCAINE 2% MDV 20 ML VIAL As Ordered; +LISI-542 PO; +LISI40TA PO; +LISI5TAB OR; +LISI5TAB PO; +METO10TA2 OR; +MUCI600T37 PO; +MULTCAP PO; +MULTCAP8 PO; +MULTIVIT OR; +MULTTAB4 PO; +NOVOINJ3 SC; +NOVOLOG100 MG/ML; +OCEA0.654; +ONDA4TAB5 PO; +ONDA4TAB6 PO; +OXYC10TA97; +PERC5TAB8; +PRIN10TA PO; -PROPOFOL 200 MG/20 ML VIAL As Ordered; +SENO8.6T5; +SKELAXIN PO; +SLF IV; +SYMBICORT INH; +TALWIN NX PO; +TYLE325T5 PO; +VIT D 2000 OR; +VIT D PO; +VIT E PO; +VITA100067 PO; +VITA50005 PO; +VITA5ELUD PO; +VITMTA PO; +ZOCO10TA PO; +ZOCO20TA PO; +ZOFR4TAB14 SL; +[UNRECOGNIZED DRUG - OTHER]
[2018-06-22 16:41] LABS: BASO % 0.2 % (0.0-1.0); HEMATOCRIT 41.3 % (36.0-47.0); HEMOGLOBIN 13.1 g/dl (12.0-15.5); LYMPH # 0.6 10^3/uL (1.5-4.5); LYMPH % 6.4 % (24.0-44.0); MEAN CORPUSCULAR HEMOGLOBIN 29.8 pg (27.0-33.0); MEAN CORPUSCULAR HGB CONC 31.7 g/dl (32.0-36.5); MEAN CORPUSCULAR VOLUME 94.1 fl (80.0-96.0); MONO # 0.5 10^3/uL (0.0-0.8); MONO % 4.7 % (0.0-5.0); NEUTROPHILS # 8.4 10^3/uL (1.8-7.7); NEUTROPHILS % 87.8 % (36.0-66.0); PLATELET COUNT, AUTOMATED 140 10^3/uL (150-450); RED BLOOD COUNT 4.39 10^6/uL (4.00-5.40); WHITE BLOOD COUNT 9.5 10^3/uL (4.0-10.0)
[2018-06-22] MEDS ORDERED: METOCLOPRAMIDE INJ 10MG/2ML VIAL (J2765) IV ONE (17:00)
[2018-06-22] MEDS ORDERED: NS 1,000 ML IV ONE ×2 (17:00→20:15)
[2018-06-22 17:10] LABS: ERYTHROCYTE SEDIMENTATION RATE 67 mm/hr (0-30)
[2018-06-22 17:13] LABS: CALCIUM LEVEL 8.3 MG/DL (8.5-10.1); CREATININE FOR GFR 1.09 MG/DL (0.55-1.30); GLOMERULAR FILTRATION RATE 54.7 (>51)
[2018-06-22 17:14] LABS: ALBUMIN 2.8 GM/DL (3.2-5.2); BILIRUBIN,DIRECT 0.6 MG/DL (0.0-0.2); BILIRUBIN,TOTAL 1.8 MG/DL (0.2-1.0); C REACTIVE PROTEIN QUANTITATIV 19.3 MG/DL (0.00-0.30); TOTAL PROTEIN 6.7 GM/DL (6.4-8.2)
--- NOTE | 2018-06-22 17:35 | REP ---
Right foot four views: The patient reportedly has a soft tissue ulcer along the plantar surface of the great toe. There are no lytic, blastic or destructive skeletal changes to suggest osteomyelitis. Mineralization joint spaces are otherwise unremarkable. There is no fracture or dislocation. On the lateral view the ulcer can be seen and the soft tissues along the plantar surface of the great toe. Incidentally a calcaneal plantar spur is identified. Electronically Signed by Yordan Wray MD 06/22/2018 05:27 P
[2018-06-22] MEDS ORDERED: CLINDAMYCIN 900 MG in APPROPRIATE DILUENT 1 EA IV ONE (17:45)
[2018-06-22 18:08] LABS: ACETONE/KETONE 8.08 MG/DL (<2.81)
[2018-06-22 18:08] LABS: INFLUENZA A AMPLIFICATION NEGATIVE (NEGATIVE); INFLUENZA B AMPLIFICATION NEGATIVE (NEGATIVE)
[2018-06-22 18:51] LABS: VENOUS HCO3 25.3 MEQ/L (23.0-27.0); VENOUS O2 SATURATION 90.6 % (60.0-80.0); VENOUS PARTIAL PRESSURE CO2 43.3 mmHg (38.0-50.0); VENOUS PARTIAL PRESSURE O2 58.9 mmHg (30.0-50.0); VENOUS PH 7.384 UNITS (7.330-7.430); VENOUS STANDARD HCO3 24.4 MEQ/L; VENOUS TOTAL CO2 26.6 MEQ/L (24.0-28.0)
[2018-06-22 19:10] LABS: HEMOGLOBIN A1c 7.7 %
[2018-06-22] MEDS ORDERED: FISH7.5C PO (20:27)
[2018-06-22] MEDS ORDERED: FURO40TA2 PO (20:27)
[2018-06-22] MEDS ORDERED: LISINOPRIL 40 MG TAB PO ONE (20:30)
--- NOTE | 2018-06-22 20:37 | REPVR ---
EXAM: US Duplex Right Lower Extremity Veins, Limited EXAM DATE/TIME: 06/22/2018 7:36 PM CLINICAL HISTORY: 57 years old, female; Signs and symptoms; Edema, localized and swelling (edema) of limb; Lower extremity, right; Additional info: Swelling, erythema, ulcer 1st toe TECHNIQUE: Real-time Duplex ultrasound of the Right Lower Extremity with 2-D ashby scale, color Doppler flow and spectral waveform analysis. Limited exam was focused on the right lower extremity veins. Technologist notes: Facility exam id and description: US. Devu r duplex, ext, lower veins, unilat right COMPARISON: US Duplex, Ext,LOWER veins,unilat 07/16/2016 4:50 PM FINDINGS: Right deep veins: Unremarkable. The common femoral, femoral, proximal profunda femoral and popliteal veins are patent without thrombus. Normal Doppler waveforms. Normal compressibility and/or augmentation response. Right superficial veins: Unremarkable. Saphenofemoral junction is patent without thrombus. Soft tissues: Unremarkable. Lymph nodes: Multiple small right inguinal nodes are noted. The largest measures 2.5 x 3.0 x 1.4 cm. IMPRESSION: 1. Negative right lower extremity venous duplex exam without evidence of deep venous thrombosis. 2. Several right inguinal nodes are noted measuring up to 2.5 x 3.0 x 1.4 cm. Electronically signed by: Yong Burk On 06/22/2018 20:37:43 PM
[2018-06-22] MEDS ORDERED: ACETAMINOPHEN TAB 650MG DOSE (2X325MG) PO PRN (22:15)
[2018-06-22] MEDS ORDERED: HumaLOG INSULIN (NovoLOG) PER UNIT SC PRN (22:30)
[2018-06-22] MEDS ORDERED: PILL CRUSHER/CUTTER 1 EACH XX PRN (22:45)
[2018-06-22] MEDS ORDERED: NEBIVOLOL 5 MG TAB (BYSTOLIC) PO ONE (23:30)
[2018-06-22] MEDS: ONDANSETRON 4 MG TAB (S0181) PO PRN (23:50)
[2018-06-23] VITALS (7 sets, daily range): BP systolic 142–170; BP diastolic 70–92
--- NOTE | 2018-06-23 00:11 | HPE ---
DATE OF ADMISSION: 06/22/2018 ATTENDING PHYSICIAN: Luz Solis MD CHIEF COMPLAINT: Fever, chills and redness in the right lower extremity for three days. HISTORY OF PRESENT ILLNESS: The patient is a 57-year-old white female with multiple chronic medical conditions including type 1 diabetes presented to the emergency room (ER) for evaluation of above complaints. History is provided by herself. She states since Thursday evening she developed fever and chills, as well as nausea and vomiting, and she denies any diarrhea or dysuria Meanwhile, she states she found some redness in her right lower extremity, which is spreading and becoming more gradually and decided to come to the emergency room (ER) for further evaluation. In the emergency room (ER), her initial work up was not significant and actually had a red lower extremity and Doppler which did not show any evidence of deep vein thrombosis (DVT) and she was given IV clindamycin in the emergency room (ER). Meanwhile, medicine service called for admission. REVIEW OF SYSTEMS: Positive fever and chills and no headache, no chest pain, no coughing. Positive nausea and vomiting, but no hematemesis. No abdominal pain. No dysuria. No diarrhea. All other systems reviewed were negative. PAST MEDICAL HISTORY: 1. Type 1 diabetes. 2. Hypertension 3. Dyslipidemia. 4. History of chronic wound infection bilateral lower extremities. PAST SURGICAL HISTORY: Tonsillectomy, section and cataract surgery, as well as a left hip fracture repair. FAMILY HISTORY: Father had diabetes, high blood pressure. Mother from lymphoma. SOCIAL HISTORY: No alcohol abuse. No tobacco use. No illicit drug abuse. She is full code. ALLERGIES: Allergic to PENICILLIN. MEDICATIONS: Reviewed. PHYSICAL EXAMINATION: VITALS: Temperature 99.5, heart rate 87, respiratory rate 16, blood pressure (BP) 190/91. Oxygen saturation 97% on room air. GENERAL: She is awake, alert and oriented times three. She is not in acute distress. HEENT: Atraumatic. Pupils equal, round and reactive to light. No jaundice. Extraocular muscles intact. Ears, nose, throat normal. Mouth: Mucosa not dry and she has poor dentition. NECK: No jugular venous distension (JVD). No bruits. LUNGS: Clear. No wheeze, no crackles. HEART: S1, S2, regular, no murmur . ABDOMEN: Soft, bowel sounds positive, nontender. LOWER EXTREMITIES: She has extensive erythema in her lower extremities between below the knee and above the ankle, but no evidence of the abscess and no drainage. SKIN: No rash. NEUROLOGICAL: Nonfocal. PSYCHOLOGICAL: No acute psychosis. DIAGNOSTIC LABORATORY: Significant for the following: Complete blood count (CBC) and differential: White blood count (WBC) 9.5 and hemoglobin and hematocrit 13/41, platelets 140. Sodium 141, potassium is 4.0, chloride of 105, bicarbonate 29, BUN 30, creatinine 1.09, glucose 223. Ultrasound did not show evidence of deep vein thrombosis (DVT) in right lower extremity. IMPRESSION: 1. Right lower extremity cellulitis. 2. Type 1 diabetes. 3. Hypertension. 4. Dyslipidemia. PLAN: The patient will be admitted to med-surg floor. I will treat her with clindamycin. Will continue her home medication and she is using insulin pump for her diabetic control, which will be continued. Lovenox will be used for deep vein thrombosis (DVT) prophylaxis.
[2018-06-23] MEDS: CLINDAMYCIN 600 MG in APPROPRIATE DILUENT 1 EA IV SCH ×3 (01:20→18:41)
[2018-06-23] MEDS ORDERED: **hydrALAZINE HCL** 25 MG TAB PO ONE (06:30)
[2018-06-23] MEDS: ONDANSETRON 4 MG TAB (S0181) PO PRN (06:35)
[2018-06-23 07:48] LABS: BLOOD UREA NITROGEN 30 MG/DL (7-18); CALCIUM LEVEL 7.9 MG/DL (8.5-10.1); CARBON DIOXIDE LEVEL 28 MEQ/L (21-32); CHLORIDE LEVEL 107 MEQ/L (98-107); CREATININE FOR GFR 0.92 MG/DL (0.55-1.30); GLOMERULAR FILTRATION RATE > 60.0 (>51); GLUCOSE, FASTING 201 MG/DL (70-100); POTASSIUM SERUM 3.7 MEQ/L (3.5-5.1); SODIUM LEVEL 140 MEQ/L (136-145)
[2018-06-23] MEDS ORDERED: NEBIVOLOL 5 MG TAB (BYSTOLIC) PO SCH (09:00)
[2018-06-23] MEDS: OMEGA-3 1000MG CAPSULE PO SCH (09:24)
[2018-06-23] MEDS: MULTIVITAMINS/MINERALS THERAP 1 TAB PO SCH (09:24)
[2018-06-23] MEDS: FUROSEMIDE 40 MG TAB PO SCH (09:24)
[2018-06-23] MEDS: LABETALOL 100 MG TAB PO SCH ×2 (09:25→20:39)
[2018-06-23] MEDS: LISINOPRIL 40 MG TAB PO SCH (09:25)
[2018-06-23] MEDS: ENOXAPARIN 40 MG/0.4 ML SYRINGE (J1650) SC SCH (09:26)
[2018-06-23] MEDS ORDERED: cloNIDine 0.1 MG TAB PO ONE (10:30)
--- NOTE | 2018-06-23 10:33 | IPNPDOC ---
Date Seen The patient was seen on 06/23/18. Progress Note SUBJECTIVE: Despite high blood pressure this morning, pt denies any changes in vision, headache, sob, chest pain, pressure, tightness, dizziness, or lightheadedness. Positive fever and chills and no headache, no chest pain, no coughing. Positive nausea and vomiting, but no hematemesis. No abdominal pain. No dysuria. No diarrhea. OBJECTIVE: PHYSICAL EXAMINATION: VITALS: PLS SEE BELOW GENERAL: She is awake, alert and oriented times three. She is not in acute distress. HEENT: Atraumatic. Pupils equal, round and reactive to light. No jaundice. Extraocular muscles intact. Ears, nose, throat normal. Mouth: Mucosa not dry and she has poor dentition. NECK: No jugular venous distension (JVD). No bruits. LUNGS: Clear. No wheeze, no crackles. HEART: S1, S2, regular, no murmur . ABDOMEN: Soft, bowel sounds positive, nontender. LOWER EXTREMITIES: She has extensive erythema in her lower extremities between below the knee and above the ankle, but no evidence of the abscess and no drainage. SKIN: No rash. NEUROLOGICAL: Nonfocal. PSYCHOLOGICAL: No acute psychosis. DIAGNOSTIC LABORATORY: PLS SEE BELOW IMAGING STUDIES: Ultrasound did not show evidence of deep vein thrombosis (DVT) in right lower extremity. ASSESSMENT AND PLAN: The patient is a 57-year-old white female with multiple chronic medical conditions including type 1 diabetes presented to the emergency room (ER) for evaluation of above complaints. History is provided by herself. She states since Thursday evening she developed fever and chills, as well as nausea and vomiting, and she denies any diarrhea or dysuria Meanwhile, she states she found some redness in her right lower extremity, which is spreading and becoming more gradually and decided to come to the emergency room (ER) for further evaluation. In the emergency room (ER), her initial work up was not significant and actually had a red lower extremity and Doppler which did not show any evidence of deep vein thrombosis (DVT) and she was given IV clindamycin in the emergency room (ER). Meanwhile, medicine service called for admission. Right lower extremity cellulitis. The patient will be admitted to med-surg floor. I will treat her with clindamycin. Will continue her home medication and she is using insulin pump for her diabetic control, which will be continued. Lashellx will be used for deep vein thrombosis (DVT) prophylaxis. Type 1 diabetes. consistent carbs diet, sliding scale. Hypertension, UNCONTROLLED started on labetalol, clonidine with holding parameters. continue home meds. Dyslipidemia. DVT prophylaxis: heparin subcutaneously Diet: consistent carbs. Disposition: 3-4 days, pending clinical improvement VS, I&O, 24H, Fishbone Vital Signs/I&O Vital Signs Date Time Temp Pulse Resp B/P (MAP) Pulse Ox O2 Delivery O2 Flow Rate FiO2 06/23/18 09:25 80 170/90 06/22/18 22:42 99.3 16 96 Room Air 06/21/18 23:07 96.0 l I&O- Last 24 Hours up to 6 AM 06/23/18 06:00 Intake Total 1339 ml Balance 1339 ml Laboratory Data 24H LABS Laboratory Tests 2 06/22/18 16:12: Estimated Mean Plasma Glucose 174H, Hemoglobin A1c 7.7 06/22/18 16:31: Immature Granulocyte % (Auto) 0.9, White Blood Count 9.5, Red Blood Count 4.39, Hemoglobin 13.1, Hematocrit 41.3, Mean Corpuscular Volume 94.1, Mean Corpuscular Hemoglobin 29.8, Mean Corpuscular Hemoglobin Concent 31.7L, Red Cell Distribution Width 13.8, Platelet Count 140L, Neutrophils (%) (Auto) 87.8H, Lymphocytes (%) (Auto) 6.4L, Monocytes (%) (Auto) 4.7, Eosinophils (%) (Auto) 0.0, Basophils (%) (Auto) 0.2, Neutrophils # (Auto) 8.4H, Lymphocytes # (Auto) 0.6L, Monocytes # (Auto) 0.5, Eosinophils # (Auto) 0.0, Basophils # (Auto) 0.0, Nucleated Red Blood Cells % (auto) 0.0, Erythrocyte Sedimentation Rate 67H, Anion Gap 7L, Glomerular Filtration Rate 54.7, Lactic Acid Level 1.5, Calcium Level 8.3L, Aspartate Amino Transf (AST/SGOT) 18, Alanine Aminotransferase (ALT /SGPT) 16, Alkaline Phosphatase 87, Total Bilirubin 1.8H, Direct Bilirubin 0.6H, C-Reactive Protein, Quantitative 19.30H, Total Protein 6.7, Albumin 2.8L, Albumin/Globulin Ratio 0.72L, B-Hydroxybutyrate 8.08H 06/22/18 17:32: Influenza Type A (RT-PCR) NEGATIVE, Influenza Type B (RT-PCR) NEGATIVE 06/22/18 18:32: Blood Gas Bicarbonate Standard 24.4, Venous Blood pH 7.384, Venous Blood Partial Pressure CO2 43.3, Venous Blood Partial Pressure O2 58.9H, Venous Blood Total Carbon Dioxide 26.6, Venous Blood HCO3 25.3, Venous Blood Oxygen Saturation 90.6H, Venous Blood Base Excess 0.0 06/23/18 06:47: Anion Gap 5L, Glomerular Filtration Rate > 60.0, Blood Urea Nitrogen 30H, Creatinine 0.92, Sodium Level 140, Potassium Level 3.7, Chloride Level 107, Carbon Dioxide Level 28, Calcium Level 7.9L CBC/BMP Laboratory Tests 06/22/18 16:31 Red Blood Count 4.39, Mean Corpuscular Volume 94.1, Mean Corpuscular Hemoglobin 29.8, Mean Corpuscular Hemoglobin Concent 31.7 L, Red Cell Distribution Width 13.8, Neutrophils (%) (Auto) 87.8 H, Lymphocytes (%) (Auto) 6.4 L, Monocytes (%) (Auto) 4.7, Eosinophils (%) (Auto) 0.0, Basophils (%) (Auto) 0.2, Neutrophils # (Auto) 8.4 H, Lymphocytes # (Auto) 0.6 L, Monocytes # (Auto) 0.5, Eosinophils # (Auto) 0.0, Basophils # (Auto) 0.0 06/23/18 06:47 Calcium Level 7.9 L Microbiology Microbiology 06/22/18 Blood Culture, Received Pending 06/22/18 Blood Culture, Received Pending 06/22/18 Wound Culture, Received Pending CHRISTOPHER NI MD Jun 23, 2018 10:33
[2018-06-23] MEDS: cloNIDine 0.1 MG TAB PO SCH ×3 (13:25→20:39)
[2018-06-24] MEDS: cloNIDine 0.1 MG TAB PO SCH ×3 (01:00→09:00)
[2018-06-24] MEDS: CLINDAMYCIN 600 MG in APPROPRIATE DILUENT 1 EA IV SCH ×3 (01:42→20:14)
[2018-06-24 01:43] VITALS: BP 122/60
[2018-06-24 06:00] VITALS: BP 144/72
[2018-06-24] MEDS: MULTIVITAMINS/MINERALS THERAP 1 TAB PO SCH (09:20)
[2018-06-24] MEDS: OMEGA-3 1000MG CAPSULE PO SCH (09:20)
[2018-06-24] MEDS: LISINOPRIL 40 MG TAB PO SCH (09:22)
[2018-06-24] MEDS: FUROSEMIDE 40 MG TAB PO SCH (09:22)
[2018-06-24] MEDS: LABETALOL 100 MG TAB PO SCH ×2 (09:23→20:45)
[2018-06-24] MEDS: ENOXAPARIN 40 MG/0.4 ML SYRINGE (J1650) SC SCH (09:23)
[2018-06-24 11:12] LABS: BASO % 0.3 % (0.0-1.0); EOS # 0.1 10^3/uL (0.0-0.50); EOS % 1.7 % (0.0-3.0); HEMATOCRIT 34.9 % (36.0-47.0); HEMOGLOBIN 11.4 g/dl (12.0-15.5); LYMPH # 0.7 10^3/uL (1.5-4.5); LYMPH % 19.7 % (24.0-44.0); MEAN CORPUSCULAR HEMOGLOBIN 29.8 pg (27.0-33.0); MEAN CORPUSCULAR HGB CONC 32.7 g/dl (32.0-36.5); MEAN CORPUSCULAR VOLUME 91.4 fl (80.0-96.0); MONO # 0.3 10^3/uL (0.0-0.8); MONO % 7.9 % (0.0-5.0); NEUTROPHILS # 2.5 10^3/uL (1.8-7.7); NEUTROPHILS % 69.8 % (36.0-66.0); PLATELET COUNT, AUTOMATED 155 10^3/uL (150-450); RED BLOOD COUNT 3.82 10^6/uL (4.00-5.40); WHITE BLOOD COUNT 3.6 10^3/uL (4.0-10.0)
[2018-06-24 11:34] LABS: ERYTHROCYTE SEDIMENTATION RATE 52 mm/hr (0-30)
[2018-06-24 12:03] LABS: BLOOD UREA NITROGEN 26 MG/DL (7-18); C REACTIVE PROTEIN QUANTITATIV 5.24 MG/DL (0.00-0.30); CALCIUM LEVEL 7.6 MG/DL (8.5-10.1); CARBON DIOXIDE LEVEL 29 MEQ/L (21-32); CHLORIDE LEVEL 104 MEQ/L (98-107); CREATININE FOR GFR 0.96 MG/DL (0.55-1.30); GLOMERULAR FILTRATION RATE > 60.0 (>51); GLUCOSE, FASTING 238 MG/DL (70-100); POTASSIUM SERUM 3.5 MEQ/L (3.5-5.1); SODIUM LEVEL 138 MEQ/L (136-145)
[2018-06-24 14:00] VITALS: BP 158/74
[2018-06-24] MEDS ORDERED: PROHANCE 279.3MG/ML 15ML VIAL (A9576) As Ordered ONE (18:18)
[2018-06-24] MEDS ORDERED: PROHANCE 279.3MG/ML 5ML VIAL (A9576) As Ordered ONE (18:18)
[2018-06-24 20:42] VITALS: BP 133/62
[2018-06-25] MEDS: CLINDAMYCIN 600 MG in APPROPRIATE DILUENT 1 EA IV SCH ×3 (02:22→17:15)
--- NOTE | 2018-06-25 05:25 | IPNPDOC ---
Date Seen The patient was seen on 06/24/18. Progress Note SUBJECTIVE: improving cellulitis. MRI foot to rule out osteo of the right great toe. no fever no headache and bp improved. OBJECTIVE: PHYSICAL EXAMINATION: VITALS: PLS SEE BELOW GENERAL: She is awake, alert and oriented times three. She is not in acute distress. HEENT: Atraumatic. Pupils equal, round and reactive to light. No jaundice. Extraocular muscles intact. Ears, nose, throat normal. Mouth: Mucosa not dry and she has poor dentition. NECK: No jugular venous distension (JVD). No bruits. LUNGS: Clear. No wheeze, no crackles. HEART: S1, S2, regular, no murmur . ABDOMEN: Soft, bowel sounds positive, nontender. LOWER EXTREMITIES: She has extensive erythema in her lower extremities between below the knee and above the ankle, but no evidence of the abscess and no drainage. SKIN: No rash. NEUROLOGICAL: Nonfocal. PSYCHOLOGICAL: No acute psychosis. DIAGNOSTIC LABORATORY: PLS SEE BELOW IMAGING STUDIES: Ultrasound did not show evidence of deep vein thrombosis (DVT) in right lower extremity. ASSESSMENT AND PLAN: The patient is a 57-year-old white female with multiple chronic medical conditions including type 1 diabetes presented to the emergency room (ER) for evaluation of above complaints. History is provided by herself. She states since Thursday evening she developed fever and chills, as well as nausea and vomiting, and she denies any diarrhea or dysuria Meanwhile, she states she found some redness in her right lower extremity, which is spreading and becoming more gradually and decided to come to the emergency room (ER) for further evaluation. In the emergency room (ER), her initial work up was not significant and actually had a red lower extremity and Doppler which did not show any evidence of deep vein thrombosis (DVT) and she was given IV clindamycin in the emergency room (ER). Meanwhile, medicine service called for admission. Right lower extremity cellulitis. The patient will be admitted to med-surg floor. I will treat her with clindamycin. Will continue her home medication and she is using insulin pump for her diabetic control, which will be continued. Lovenox will be used for deep vein thrombosis (DVT) prophylaxis. Type 1 diabetes. consistent carbs diet, sliding scale. Hypertension, UNCONTROLLED started on labetalol, clonidine with holding parameters. continue home meds. Dyslipidemia. DVT prophylaxis: heparin subcutaneously Diet: consistent carbs. Disposition: 3-4 days, pending clinical improvement VS, I&O, 24H, Kathy Vital Signs/I&O Vital Signs Date Time Temp Pulse Resp B/P (MAP) Pulse Ox O2 Delivery O2 Flow Rate FiO2 06/24/18 20:45 82 133/62 06/24/18 20:42 98.4 16 97 06/22/18 22:42 Room Air 06/21/18 23:07 96.0 I&O- Last 24 Hours up to 6 AM 06/25/18 06:00 Intake Total 1230 ml Output Total 900 ml Balance 330 ml Laboratory Data 24H LABS Laboratory Tests 2 06/24/18 11:04: Immature Granulocyte % (Auto) 0.6, White Blood Count 3.6L, Red Blood Count 3.82L, Hemoglobin 11.4L, Hematocrit 34.9L, Mean Corpuscular Volume 91.4, Mean Corpuscular Hemoglobin 29.8, Mean Corpuscular Hemoglobin Concent 32.7, Red Cell Distribution Width 13.6, Platelet Count 155, Neutrophils (%) (Auto) 69.8H, Lymphocytes (%) (Auto) 19.7L, Monocytes (%) (Auto) 7.9H, Eosinophils (%) (Auto) 1.7, Basophils (%) (Auto) 0.3, Neutrophils # (Auto) 2.5, Lymphocytes # (Auto) 0.7L, Monocytes # (Auto) 0.3, Eosinophils # (Auto) 0.1, Basophils # (Auto) 0.0, Nucleated Red Blood Cells % (auto) 0.0, Erythrocyte Sedimentation Rate 52H, Anion Gap 5L, Glomerular Filtration Rate > 60.0, Blood Urea Nitrogen 26H, Creatinine 0.96, Sodium Level 138, Potassium Level 3.5, Chloride Level 104, Carbon Dioxide Level 29, Calcium Level 7.6L, C-Reactive Protein, Quantitative 5.24H CBC/BMP Laboratory Tests 06/24/18 11:04 Red Blood Count 3.82 L, Mean Corpuscular Volume 91.4, Mean Corpuscular Hemoglobin 29.8, Mean Corpuscular Hemoglobin Concent 32.7, Red Cell Distribution Width 13.6, Neutrophils (%) (Auto) 69.8 H, Lymphocytes (%) (Auto) 19.7 L, Evans cytes (%) (Auto) 7.9 H, Eosinophils (%) (Auto) 1.7, Basophils (%) (Auto) 0.3, Neutrophils # (Auto) 2.5, Lymphocytes # (Auto) 0.7 L, Monocytes # (Auto) 0.3, Eosinophils # (Auto) 0.1, Basophils # (Auto) 0.0, Calcium Level 7.6 L Microbiology Microbiology 06/22/18 Blood Culture - Preliminary, Resulted No Growth after 48 hours. All Specime... 06/22/18 Blood Culture - Preliminary, Resulted No Growth after 48 hours. All Specime... 06/22/18 Wound Culture, Received Pending CHRISTOPHER NI MD Jun 25, 2018 05:25
[2018-06-25 06:05] VITALS: BP_SYST 168; BP_SYST 192; BP_DIAS 88; BP_DIAS 90
[2018-06-25] MEDS: LABETALOL 100 MG TAB PO SCH ×2 (06:34→20:36)
[2018-06-25] MEDS: LISINOPRIL 40 MG TAB PO SCH (06:34)
[2018-06-25 07:26] LABS: HEMATOCRIT 35.9 % (36.0-47.0); HEMOGLOBIN 11.5 g/dl (12.0-15.5); MEAN CORPUSCULAR HEMOGLOBIN 29.6 pg (27.0-33.0); MEAN CORPUSCULAR VOLUME 92.5 fl (80.0-96.0); PLATELET COUNT, AUTOMATED 157 10^3/uL (150-450); RED BLOOD COUNT 3.88 10^6/uL (4.00-5.40); WHITE BLOOD COUNT 3.4 10^3/uL (4.0-10.0)
[2018-06-25] MEDS: OMEGA-3 1000MG CAPSULE PO SCH (08:18)
[2018-06-25] MEDS: FUROSEMIDE 40 MG TAB PO SCH (08:18)
[2018-06-25] MEDS: MULTIVITAMINS/MINERALS THERAP 1 TAB PO SCH (08:18)
[2018-06-25 08:19] VITALS: BP 158/88
[2018-06-25] MEDS: ENOXAPARIN 40 MG/0.4 ML SYRINGE (J1650) SC SCH (08:19)
--- NOTE | 2018-06-25 11:50 | IPNPDOC ---
Date Seen The patient was seen on 06/25/18. Progress Note SUBJECTIVE: Pt c/o 2 bullous lesions noted overnight 1.5 cm on right anterior shields, 0.5cm right medial leg. no fever or chills. no fluctuance, nontender. bp elevated 170-180. no visual changes. Dc plans thursday if continues to improve. no c/o headache, chest pain and bp is improved. no other issues per rn.MRI foot to r/o osteo 06/24/18 reviewed. OBJECTIVE: PHYSICAL EXAMINATION: VITALS: PLS SEE BELOW GENERAL: She is awake, alert and oriented times three. She is not in acute distress. HEENT: Atraumatic. Pupils equal, round and reactive to light. No jaundice. Extraocular muscles intact. Ears, nose, throat normal. Mouth: Mucosa not dry and she has poor dentition. NECK: No jugular venous distension (JVD). No bruits. LUNGS: Clear. No wheeze, no crackles. HEART: S1, S2, regular, no murmur . ABDOMEN: Soft, bowel sounds positive, nontender. LOWER EXTREMITIES: improvement in erythema in her lower extremities between below the knee and above the ankle, but no evidence of the abscess and no drainage. 1.5 cm on right anterior shields, 0.5cm right medial leg. SKIN: No rash. NEUROLOGICAL: Nonfocal. PSYCHOLOGICAL: No acute psychosis. DIAGNOSTIC LABORATORY: PLS SEE BELOW IMAGING STUDIES: Ultrasound did not show evidence of deep vein thrombosis (DVT) in right lower extremity. ASSESSMENT AND PLAN: The patient is a 57-year-old white female with multiple chronic medical conditions including type 1 diabetes presented to the emergency room (ER) for evaluation of above complaints. History is provided by herself. She states since Thursday evening she developed fever and chills, as well as nausea and vomiting, and she denies any diarrhea or dysuria Meanwhile, she states she found some redness in her right lower extremity, which is spreading and becoming more gradually and decided to come to the emergency room (ER) for further evaluation. In the emergency room (ER), her initial work up was not significant and actually had a red lower extremity and Doppler which did not show any evidence of deep vein thrombosis (DVT) and she was given IV clindamycin in the emergency room (ER). Meanwhile, medicine service called for admission. Right lower extremity cellulitis. [facility] I will treat her with clindamycin. Will continue her home medication and she is using insulin pump for her diabetic control, which will be continued. Lovenox will be used for deep vein thrombosis (DVT) prophylaxis. Type 1 diabetes. consistent carbs diet, sliding scale. Hypertension, UNCONTROLLED started on labetalol, clonidine with holding parameters. continue home meds. Dyslipidemia. DVT prophylaxis: heparin subcutaneously Diet: consistent carbs. Disposition: Thursday discharge, pending clinical improvement VS, I&O, 24H, Kathy Vital Signs/I&O Vital Signs Date Time Temp Pulse Resp B/P (MAP) Pulse Ox O2 Delivery O2 Flow Rate FiO2 06/24/18 20:45 82 133/62 06/24/18 20:42 98.4 16 97 06/22/18 22:42 Room Air 06/21/18 23:07 96.0 I&O- Last 24 Hours up to 6 AM 06/25/18 06:00 Intake Total 1230 ml Output Total 900 ml Balance 330 ml Laboratory Data 24H LABS Laboratory Tests 2 06/24/18 11:04: Immature Granulocyte % (Auto) 0.6, White Blood Count 3.6L, Red Blood Count 3.82L, Hemoglobin 11.4L, Hematocrit 34.9L, Mean Corpuscular Volume 91.4, Mean Corpuscular Hemoglobin 29.8, Mean Corpuscular Hemoglobin Concent 32.7, Red Cell Distribution Width 13.6, Platelet Count 155, Neutrophils (%) (Auto) 69.8H, Lymphocytes (%) (Auto) 19.7L, Monocytes (%) (Auto) 7.9H, Eosinophils (%) (Auto) 1.7, Basophils (%) (Auto) 0.3, Neutrophils # (Auto) 2.5, Lymphocytes # (Auto) 0.7L, Monocytes # (Auto) 0.3, Eosinophils # (Auto) 0.1, Basophils # (Auto) 0.0, Nucleated Red Blood Cells % (auto) 0.0, Erythrocyte Sedimentation Rate 52H, Anion Gap 5L, Glomerular Filtration Rate > 60.0, Blood Urea Nitrogen 26H, Creatinine 0.96, Sodium Level 138, Potassium Level 3.5, Chloride Level 104, Carbon Dioxide Level 29, Calcium Level 7.6L, C-Reactive Protein, Quantitative 5.24H CBC/BMP Laboratory Tests 06/24/18 11:04 Red Blood Count 3.82 L, Mean Corpuscular Volume 91.4, Mean Corpuscular Hemoglobin 29.8, Mean Corpuscular Hemoglobin Concent 32.7, Red Cell Distribution Width 13.6, Neutrophils (%) (Auto) 69.8 H, Lymphocytes (%) (Auto) 19.7 L, Monocytes (%) (Auto) 7.9 H, Eosinophils (%) (Auto) 1.7, Basophils (%) (Auto) 0.3, Neutrophils # (Auto) 2.5, Lymphocytes # (Auto) 0.7 L, Monocytes # (Auto) 0.3, Eosinophils # (Auto) 0.1, Basophils # (Auto) 0.0, Calcium Level 7.6 L Microbiology Microbiology 06/22/18 Blood Culture - Preliminary, Resulted No Growth after 48 hours. All Specime... 06/22/18 Blood Culture - Preliminary, Resulted No Growth after 48 hours. All Specime... 06/22/18 Wound Culture, Received Pending CHRISTOPHER NI MD Jun 25, 2018 05:26
[2018-06-25] MEDS ORDERED: LABETALOL 100 MG TAB PO ONE (12:00)
[2018-06-25 14:00] VITALS: BP 160/96
--- NOTE | 2018-06-25 14:57 | REP ---
MRI RIGHT FOOT WITHOUT AND WITH CONTRAST: 06/24/2018. Comparison x-ray: 06/22/2018. Clinical history: Plantar soft tissue ulceration great toe with lower extremity cellulitis, rule out osteomyelitis. Technique: Precontrast sagittal STIR, axial T1 with fat sat/T2, coronal T1, STIR and fat suppressed T1 sequences. Following ProHance 15 mL injection, T1 fat suppressed axial, coronal and sagittal images were provided. There is soft tissue edema and swelling of the great toe particularly along its plantar surface. Edema in those tissues is notable. On the T1 precontrast images areas of slight hypointense signal in the distal phalanx which on STIR images shows slight hyperintensity. There is disruption of the medial inferior cortex on the axial images through the toe. Ulceration is seen on the plantar aspect of the toe. With gadolinium administration I see some slightly hyperintense signal similar to that T2 STIR images in the distal phalanx only. This does suggest osteomyelitis with adjacent cellulitis. The other phalanx of the great toe, second through fifth toes, metatarsals, tarsal bones and the talus and calcaneus show no marrow signal abnormality to suggest osteomyelitis or fracture. A plantar insertional spur is noted. Some osteoarthritic changes are noted scattered joints. Subcutaneous edema of the foot, ankle and lower leg noted. Impression: 1. Findings suggestive of osteomyelitis distal phalanx great toe with surrounding subcutaneous edema and no other bone involvement of the great toe, other toes, metatarsals, tarsal bones or hind foot. There is some diffuse soft tissue swelling with enhancement consistent with cellulitis. Electronically Signed by Volodymyr Gomes MD 06/25/2018 07:52 P
[2018-06-25 20:00] VITALS: BP 136/77
[2018-06-26] MEDS: CLINDAMYCIN 600 MG in APPROPRIATE DILUENT 1 EA IV SCH ×3 (01:05→17:25)
[2018-06-26 06:00] VITALS: BP 176/83
[2018-06-26 08:20] LABS: BASO % 0.7 % (0.0-1.0); EOS # 0.2 10^3/uL (0.0-0.50); EOS % 5.6 % (0.0-3.0); HEMATOCRIT 34.7 % (36.0-47.0); LYMPH # 1.2 10^3/uL (1.5-4.5); LYMPH % 28.6 % (24.0-44.0); MEAN CORPUSCULAR HEMOGLOBIN 29.2 pg (27.0-33.0); MEAN CORPUSCULAR HGB CONC 31.7 g/dl (32.0-36.5); MONO # 0.4 10^3/uL (0.0-0.8); MONO % 9.3 % (0.0-5.0); NEUTROPHILS # 2.3 10^3/uL (1.8-7.7); NEUTROPHILS % 55.3 % (36.0-66.0); PLATELET COUNT, AUTOMATED 179 10^3/uL (150-450); RED BLOOD COUNT 3.77 10^6/uL (4.00-5.40); WHITE BLOOD COUNT 4.1 10^3/uL (4.0-10.0)
[2018-06-26 08:32] LABS: BLOOD UREA NITROGEN 20 MG/DL (7-18); CALCIUM LEVEL 8.4 MG/DL (8.5-10.1); CARBON DIOXIDE LEVEL 26 MEQ/L (21-32); CHLORIDE LEVEL 105 MEQ/L (98-107); GLOMERULAR FILTRATION RATE > 60.0 (>51); GLUCOSE, FASTING 244 MG/DL (70-100); POTASSIUM SERUM 3.4 MEQ/L (3.5-5.1); SODIUM LEVEL 139 MEQ/L (136-145)
[2018-06-26 08:43] LABS: ERYTHROCYTE SEDIMENTATION RATE 48 mm/hr (0-30)
[2018-06-26] MEDS: FUROSEMIDE 40 MG TAB PO SCH (08:46)
[2018-06-26] MEDS: ENOXAPARIN 40 MG/0.4 ML SYRINGE (J1650) SC SCH (08:46)
[2018-06-26] MEDS: OMEGA-3 1000MG CAPSULE PO SCH (08:46)
[2018-06-26] MEDS: MULTIVITAMINS/MINERALS THERAP 1 TAB PO SCH (08:46)
[2018-06-26] MEDS: LISINOPRIL 40 MG TAB PO SCH (08:47)
[2018-06-26] MEDS: LABETALOL 100 MG TAB PO SCH (08:47)
--- NOTE | 2018-06-26 11:21 | IPNPDOC ---
Date Seen The patient was seen on 06/26/18. Progress Note SUBJECTIVE:Overnight, pt's c/o 2 bullous lesions 1.5 cm on right anterior shields, 0.5cm right medial leg have disappeared. improved erythema despite persistent swelling of the right leg.. no fever or chills. no fluctuance, nontender. bp elevated 170-180. no visual changes. Dc plans thursday if continues to improve. no c/o headache, chest pain and bp is improved. no other issues per rn.MRI foot to r/o osteo 06/24/18 reviewed. OBJECTIVE: PHYSICAL EXAMINATION: VITALS: PLS SEE BELOW GENERAL: She is awake, alert and oriented times three. She is not in acute distress. HEENT: Atraumatic. Pupils equal, round and reactive to light. No jaundice. Extraocular muscles intact. Ears, nose, throat normal. Mouth: Mucosa not dry and she has poor dentition. NECK: No jugular venous distension (JVD). No bruits. LUNGS: Clear. No wheeze, no crackles. HEART: S1, S2, regular, no murmur . ABDOMEN: Soft, bowel sounds positive, nontender. LOWER EXTREMITIES: improvement in erythema in her lower extremities between below the knee and above the ankle, but no evidence of the abscess and no drainage. 1.5 cm on right anterior shields, 0.5cm right medial leg. SKIN: No rash. NEUROLOGICAL: Nonfocal. PSYCHOLOGICAL: No acute psychosis. DIAGNOSTIC LABORATORY: PLS SEE BELOW IMAGING STUDIES: Ultrasound did not show evidence of deep vein thrombosis (DVT) in right lower extremity. ASSESSMENT AND PLAN: The patient is a 57-year-old white female with multiple chronic medical conditions including type 1 diabetes presented to the emergency room (ER) for evaluation of above complaints. History is provided by herself. She states since Thursday evening she developed fever and chills, as well as nausea and vomiting, and she denies any diarrhea or dysuria Meanwhile, she states she found some redness in her right lower extremity, which is spreading and becoming more gradually and decided to come to the emergency room (ER) for further evaluation. In the emergency room (ER), her initial work up was not significant and actually had a red lower extremity and Doppler which did not show any evidence of deep vein thrombosis (DVT) and she was given IV clindamycin in the emergency room (ER). Meanwhile, medicine service called for admission. Right lower extremity cellulitis. The patient will be admitted to med-surg floor. I will treat her with clindamycin. Will continue her home medication and she is using insulin pump for her diabetic control, which will be continued. Lovenox will be used for deep vein thrombosis (DVT) prophylaxis. Type 1 diabetes. consistent carbs diet, sliding scale. Hypertension, UNCONTROLLED on labetalol, clonidine with holding parameters. continue home meds. titrated labetalol for better bp control. Dyslipidemia. DVT prophylaxis: heparin subcutaneously Diet: consistent carbs. Disposition: Thursday discharge, pending clinical improvement VS, I&O, [facility] Vital Signs/I&O Vital Signs Date Time Temp Pulse Resp B/P (MAP) Pulse Ox O2 Delivery O2 Flow Rate FiO2 06/26/18 08:47 75 173/79 06/26/18 06:00 98.0 18 96 06/22/18 22:42 Room Air 06/21/18 23:07 96.0 I&O- Last 24 Hours up to 6 AM 06/26/18 06:00 Intake Total 950 ml Output Total 750 ml Balance 200 ml Laboratory Data 24H LABS Laboratory Tests 2 06/26/18 07:52: Immature Granulocyte % (Auto) 0.5, White Blood Count 4.1, Red Blood Count 3.77L, Hemoglobin 11.0L, Hematocrit 34.7L, Mean Corpuscular Volume 92.0, Mean Corpuscular Hemoglobin 29.2, Mean Corpuscular Hemoglobin Concent 31.7L, Red Cell Distribution Width 13.3, Platelet Count 179, Neutrophils (%) (Auto) 55.3, Lymphocytes (%) (Auto) 28.6, Monocytes (%) (Auto) 9.3H, Eosinophils (%) (Auto) 5.6H, Basophils (%) (Auto) 0.7, Neutrophils # (Auto) 2.3, Lymphocytes # (Auto) 1.2L, Monocytes # (Auto) 0.4, Eosinophils # (Auto) 0.2, Basophils # (Auto) 0.0, Nucleated Red Blood Cells % (auto) 0.0, Erythrocyte Sedimentation Rate 48H, Anion Gap 8, Glomerular Filtration Rate > 60.0, Blood Urea Nitrogen 20H, Creatinine 0.90, Sodium Level 139, Potassium Level 3.4L, Chloride Level 105, Carbon Dioxide Level 26, Calcium Level 8.4L, C-Reactive Protein, Quantitative 2.00H CBC/BMP Laboratory Tests 06/26/18 07:52 Red Blood Count 3.77 L, Mean Corpuscular Volume 92.0, Mean Corpuscular Hemoglobin 29.2, Mean Corpuscular Hemoglobin Concent 31.7 L, Red Cell Distribution Width 13.3, Neutrophils (%) (Auto) 55.3, Lymphocytes (%) (Auto) 28.6, Monocytes (%) (Auto) 9.3 H, Eosinophils (%) (Auto) 5.6 H, Basophils (%) (Auto) 0.7, Neutrophils # (Auto) 2.3, Lymphocytes # (Auto) 1.2 L, Monocytes # (Auto) 0.4, Eosinophils # (Auto) 0.2, Basophils # (Auto) 0.0, Calcium Level 8.4 L Microbiology Microbiology 06/22/18 Blood Culture - Preliminary, Resulted No Growth after 72 hours. All specime... 06/22/18 Blood Culture - Preliminary, Resulted No Growth after 72 hours. All specime... 06/22/18 Wound Culture - Final, Complete Streptococcus Pyogenes Grp A Staphylococcus Aureus Staphylococcus Aureus#2 CHRISTOPHER NI MD Jun 26, 2018 11:21
[2018-06-26 12:20] VITALS: BP 170/90
[2018-06-26] MEDS ORDERED: LABETALOL 100 MG TAB PO ONE (13:00)
[2018-06-26 14:00] VITALS: BP 142/72
[2018-06-26] MEDS: LABETALOL 200 MG TAB PO SCH ×2 (17:27→20:18)
[2018-06-26 18:40] VITALS: BP 132/60
[2018-06-26 20:00] VITALS: BP 164/88
[2018-06-27] VITALS (10 sets, daily range): BP systolic 120–178; BP diastolic 70–100
[2018-06-27] MEDS: CLINDAMYCIN 600 MG in APPROPRIATE DILUENT 1 EA IV SCH ×3 (01:12→17:47)
[2018-06-27] MEDS: LISINOPRIL 40 MG TAB PO SCH (08:36)
[2018-06-27] MEDS: OMEGA-3 1000MG CAPSULE PO SCH (08:36)
[2018-06-27] MEDS: FUROSEMIDE 40 MG TAB PO SCH (08:36)
[2018-06-27] MEDS: MULTIVITAMINS/MINERALS THERAP 1 TAB PO SCH (08:36)
[2018-06-27] MEDS: ENOXAPARIN 40 MG/0.4 ML SYRINGE (J1650) SC SCH (08:37)
[2018-06-27] MEDS: LABETALOL 200 MG TAB PO SCH ×5 (08:39→20:54)
[2018-06-27] MEDS ORDERED: VITAMIN D 50,000 UNITS CAPSULE (ERGOCALCIFEROL 1.25MG) PO SCH (09:00)
--- NOTE | 2018-06-27 10:34 | IPNPDOC ---
Date Seen The patient was seen on 06/27/18. Progress Note SUBJECTIVE: Due to uncontrolled blood pressure despite lisinopril 40 mg daily, labetalol 200 mg tid, continued titration of bp meds needed and discharge today is postponed until bp is better. On 06/25/18 pt's c/o 2 bullous lesions 1.5 cm on right anterior shields, 0.5cm right medial leg have disappeared. improved erythema despite persistent swelling of the right leg.. no fever or chills. no fluctuance, nontender. bp elevated 170-180. no visual changes. Dc plans thursday if continues to improve. no c/o headache, chest pain and bp is improved. no other issues per rn.MRI foot to r/o osteo 06/24/18 reviewed. OBJECTIVE: PHYSICAL EXAMINATION: VITALS: PLS SEE BELOW GENERAL: She is awake, alert and oriented times three. She is not in acute distress. HEENT: Atraumatic. Pupils equal, round and reactive to light. No jaundice. Extraocular muscles intact. Ears, nose, throat normal. Mouth: Mucosa not dry and she has poor dentition. NECK: No jugular venous distension (JVD). No bruits. LUNGS: Clear. No wheeze, no crackles. HEART: S1, S2, regular, no murmur . ABDOMEN: Soft, bowel sounds positive, nontender. LOWER EXTREMITIES: improvement in erythema in her lower extremities between below the knee and above the ankle, but no evidence of the abscess and no drainage. 1.5 cm on right anterior shields, 0.5cm right medial leg. SKIN: No rash. NEUROLOGICAL: Nonfocal. PSYCHOLOGICAL: No acute psychosis. DIAGNOSTIC LABORATORY: PLS SEE BELOW IMAGING STUDIES: Ultrasound did not show evidence of deep vein thrombosis (DVT) in right lower extremity. ASSESSMENT AND PLAN: The patient is a 57-year-old white female with multiple chronic medical conditions including type 1 diabetes presented to the emergency room (ER) for evaluation of above complaints. History is provided by herself. She states since Thursday evening she developed fever and chills, as well as nausea and vomiting, and she denies any diarrhea or dysuria Meanwhile, she states she found some redness in her right lower extremity, which is spreading and becoming more gradually and decided to come to the emergency room (ER) for further evaluation. In the emergency room (ER), her initial work up was not significant and actually had a red lower extremity and Doppler which did not show any evidence of deep vein thrombosis (DVT) and she was given IV clindamycin in the emergency room (ER). Meanwhile, medicine service called for admission. Right lower extremity cellulitis. The patient will be admitted to med-surg floor. I will treat her with clindamycin. Will continue her home medication and she is using insulin pump for her diabetic control, which will be continued. Lovenox will be used for deep vein thrombosis (DVT) prophylaxis. Type 1 diabetes. consistent carbs diet, sliding scale. Hypertension, UNCONTROLLED on labetalol, clonidine with holding parameters. continue home meds. titrated labetalol for better bp control. Dyslipidemia. DVT prophylaxis: heparin subcutaneously Diet: consistent carbs. Disposition: Thursday discharge, pending clinical improvement VS, I&O, 24H, [facility] Vital Signs/I&O Vital Signs Date Time Temp Pulse Resp B/P (MAP) Pulse Ox O2 Delivery O2 Flow Rate FiO2 06/27/18 08:39 74 178/90 06/27/18 06:00 98.1 16 97 06/22/18 22:42 Room Air 06/21/18 23:07 96.0 I&O- Last 24 Hours up to 6 AM 06/27/18 06:00 Intake Total 1540 ml Balance 1540 ml Laboratory Data Microbiology Microbiology 06/22/18 Blood Culture - Preliminary, Resulted No Growth after 72 hours. All specime... 06/22/18 Blood Culture - Preliminary, Resulted No Growth after 72 hours. All specime... 06/22/18 Wound Culture - Final, Complete Streptococcus Pyogenes Grp A Staphylococcus Aureus Staphylococcus Aureus#2 CHRISTOPHER NI MD Jun 27, 2018 10:34
[2018-06-28] MEDS: CLINDAMYCIN 600 MG in APPROPRIATE DILUENT 1 EA IV SCH (02:26)
[2018-06-28 06:00] VITALS: BP 138/67
[2018-06-28] MEDS ORDERED: LABE20TAB PO (08:00)
[2018-06-28] MEDS ORDERED: CLIN150C14 PO (08:02)
[2018-06-28] MEDS ORDERED: BACI1CAP PO (08:02)
[2018-06-28] MEDS: OMEGA-3 1000MG CAPSULE PO SCH (08:54)
[2018-06-28] MEDS: LISINOPRIL 40 MG TAB PO SCH (08:54)
[2018-06-28 08:55] VITALS: BP_SYST 138
[2018-06-28] MEDS: FUROSEMIDE 40 MG TAB PO SCH (08:55)
[2018-06-28] MEDS: LABETALOL 200 MG TAB PO SCH (08:55)
[2018-06-28] MEDS: MULTIVITAMINS/MINERALS THERAP 1 TAB PO SCH (08:55)
--- NOTE | 2018-06-28 21:20 | DS.PDOC ---
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 Complete course of clindamycin. HISTORY OF PRESENTING ILLNESS: The patient is a 57-year-old white female with multiple chronic medical conditions including type 1 diabetes presented to the emergency room (ER) for evaluation of above complaints. History is provided by herself. She states since Thursday evening she developed fever and chills, as well as nausea and vomiting, and she denies any diarrhea or dysuria Meanwhile, she states she found some redness in her right lower extremity, which is spreading and becoming more gradually and decided to come to the emergency room (ER) for further evaluation. In the emergency room (ER), her initial work up was not significant and actually had a red lower extremity and Doppler which did not show any evidence of deep vein thrombosis (DVT) and she was given IV clindamycin in the emergency room (ER). Meanwhile, medicine service called for admission. HOSPITAL COURSE: Right lower extremity cellulitis. The patient was admitted to the med-surg floor, and given iv clindamycin due to PCN allergy with significant clinical improvement. she is able to ambulate without difficulty. white count was normal, and pt was afebrile with no chills. Type 1 diabetes. consistent carbs diet, sliding scale. Hypertension ,uncontrolled pt was initially kept onher home meds, which was insufficient. Labetalol was started and titrated with imrovement. she is currently controlled on lisinopril and labetalol with holding parameters. Dyslipidemia. DVT prophylaxis: heparin subcutaneously Diet: consistent carbs. DISCHARGE PHYSICAL EXAMINATION: VITALS: PLS SEE BELOW GENERAL: She is awake, alert and oriented times three. She is not in acute distress. HEENT: Atraumatic. Pupils equal, round and reactive to light. No jaundice. Extraocular muscles intact. Ears, nose, throat normal. Mouth: Mucosa not dry and she has poor dentition. NECK: No jugular venous distension (JVD). No bruits. LUNGS: Clear. No wheeze, no crackles. HEART: S1, S2, regular, no murmur . ABDOMEN: Soft, bowel sounds positive, nontender. LOWER EXTREMITIES: right LE with significant decrease in erythema, no induration, no weeping.decreased edema. plantar great toe with clean ulcer without fluctuance or tenderness. SKIN: No rash. NEUROLOGICAL: Nonfocal. PSYCHOLOGICAL: No acute psychosis. DIAGNOSTIC LABORATORY: PLS SEE BELOW TIME SPENT ON DISCHARGE: 30 MIN. Vital Signs/I&Os Vital Signs Date Time Temp Pulse Resp B/P (MAP) Pulse Ox O2 Delivery O2 Flow Rate FiO2 06/28/18 06:00 98.2 78 18 138/67 (90) 96 06/22/18 22:42 Room Air I&O- Last 24 Hours up to 6 AM 06/28/18 06:00 Intake Total 1970 ml Balance 1970 ml Microbiology Microbiology 06/22/18 Blood Culture - Final, Complete NO GROWTH AFTER 5 DAYS 06/22/18 Blood Culture - Final, Complete NO GROWTH AFTER 5 DAYS 06/22/18 Wound Culture - Final, Complete Streptococcus Pyogenes Grp A Staphylococcus Aureus Staphylococcus Aureus#2 Discharge Medications Scheduled Bacillus Coagulans (Bacid) 1 Cap Cap, 1 CAP PO AC Calcium Carbonate (Calcium) 600 Mg Tab, 600 MG PO DAILY, (Reported) Clindamycin Hcl (Clindamycin HCl) 150 Mg Cap, 150 MG PO QID Ergocalciferol (Vitamin D) 50,000 Unit Cap, 50,000 UNITS PO 1XWK, (Reported) TAKES ON SUNDAYS Furosemide (Furosemide) 40 Mg Tab, 40 MG PO DAILY, (Reported) Insulin Human Lispro (Humalog) 1 Units/0.01 Ml Inj, 1 DOSE SC ACHS, (Reported) PER SLIDING SCALE, PATIENT HAS INSULIN PUMP Labetalol HCl (Labetalol HCl) 200 Mg Tab, 200 MG PO QID Lisinopril (Lisinopril) 40 Mg Tab, 40 MG PO DAILY, (Reported) Multivitamins *[facility] STOCKED* (Thera M Plus *[facility] STOCKED*) 1 Tab Tab, 1 TAB PO DAILY, (Reported) [place] 3 Polyunsat Fatty Acids (Fish Oil 1000 mg) 1 Cap Cap, 1,000 UNITS PO D AILY, (Reported) Scheduled PRN Ondansetron HCl (Ondansetron HCl) 4 Mg Tab, 4 MG PO Q6HP PRN for nausea/vomiting, (Reported) Allergies Coded Allergies: Penicillins (Verified Allergy, Intermediate, hives,,and sores, 11/03/17) patient had hives at age [age] Eggs or Egg-derived Products (Verified Allergy, Unknown, 06/01/17) Penicillins Cross Reactors (Verified Allergy, Unknown, 06/01/17) CHRISTOPHER NI MD Jun 28, 2018 21:19
== END 2018-06-28 10:50 | disposition home or self-care (01) | DRG 344 ==
LOC: M ED 15:07 → M ED INP 22:13 → M MS4PR 23:07
PROVIDERS: ADMIT Hospitalist; ATTEND General Practice
DX: E10.622 Type 1 diabetes mellitus with other skin ulcer (principal); M86.171 Other acute osteomyelitis, right ankle and foot; L03.115 Cellulitis of right lower limb; I10 Essential (primary) hypertension; E78.5 Hyperlipidemia, unspecified; Z79.899 Other long term (current) drug therapy; Z79.4 Long term (current) use of insulin; Z88.0 Allergy status to penicillin; Z91.012 Allergy to eggs

== ENCOUNTER 2018-10-02 21:34 | Emergency (ER) | payer BC ==
[~2018-10-02] VITALS: Ht 167.6 cm; Wt 78.2 kg
[2018-10-02 21:34] VITALS: BP 181/86
[~2018-10-02 21:34] MED LIST changes: -/WARF25TA; -/WARF5TA; -ASPI81CH PO; +ASPI81CH49 PO; +BACI1CAP PO; +CLIN150C14 PO; +COUM1TAB17; +COUM1TAB18; +FISH7.5C PO; +FURO40TA2 PO; +LABE20TAB PO
[2018-10-02] MEDS ORDERED: ONDANSETRON 4 MG ORAL DISINTEGRATING TAB (Q0162 PER 1MG) PO ONE (22:00)
[2018-10-02 22:29] LABS: BASO % 0.4 % (0.0-1.0); HEMATOCRIT 34.5 % (36.0-47.0); HEMOGLOBIN 11.4 g/dl (12.0-15.5); LYMPH # 0.4 10^3/uL (1.5-4.5); LYMPH % 6.3 % (24.0-44.0); MEAN CORPUSCULAR HEMOGLOBIN 30.2 pg (27.0-33.0); MEAN CORPUSCULAR VOLUME 91.5 fl (80.0-96.0); MONO # 0.5 10^3/uL (0.0-0.8); MONO % 6.7 % (0.0-5.0); NEUTROPHILS # 6.1 10^3/uL (1.8-7.7); NEUTROPHILS % 86.3 % (36.0-66.0); PLATELET COUNT, AUTOMATED 250 10^3/uL (150-450); RED BLOOD COUNT 3.77 10^6/uL (4.00-5.40)
[2018-10-02 22:47] LABS: C REACTIVE PROTEIN QUANTITATIV 18.1 MG/DL (0.00-0.30); CALCIUM LEVEL 8.5 MG/DL (8.8-10.2); CREATININE FOR GFR 1.39 MG/DL (0.55-1.30); GLOMERULAR FILTRATION RATE 41.2 (>45); POTASSIUM SERUM 4.6 MEQ/L (3.5-5.1)
[2018-10-02 23:59] LABS: ERYTHROCYTE SEDIMENTATION RATE 86 mm/hr (0-30)
[2018-10-03] MEDS ORDERED: CLINDAMYCIN 900 MG in APPROPRIATE DILUENT 1 EA IV ONE (00:15)
[2018-10-03] MEDS ORDERED: METOCLOPRAMIDE INJ 10MG/2ML VIAL (J2765) IV ONE (00:15)
[2018-10-03] MEDS ORDERED: CLIN150C14 PO (01:39)
--- NOTE | 2018-10-03 07:18 | REP ---
Clinical: Swelling and ulcer. Technique: AP, lateral views of the left foot. Findings: Diffuse soft tissue swelling is appreciated. Hallux valgus deformity is noted with ulceration overlying the head of the first metatarsal bone. Chronic appearing periosteal reaction involves the second proximal phalanx and there is element of destructive changes involving the second metatarsophalangeal joint as well as irregular resorption involving the third distal phalanx. These findings may reflect prior trauma as well as osteomyelitis which cannot be excluded. No acute fracture. Impression: Findings as described above. Electronically Signed by Robert Ohara MD 10/03/2018 07:10 A
--- NOTE | 2018-10-05 13:11 | ED PDOC ---
Post-Departure Follow-Up dr mars faxed formal report of left foot pain for fu Romero Dawson MD Oct 05, 2018 13:10
== END 2018-10-03 02:13 | disposition home or self-care (01) ==
LOC: M ED 21:34
DX: L03.032 Cellulitis of left toe (principal); L89.894 Pressure ulcer of other site, stage 4; E10.622 Type 1 diabetes mellitus with other skin ulcer; E10.40 Type 1 diabetes mellitus with diabetic neuropathy, unspecified; E10.69 Type 1 diabetes mellitus with other specified complication; M19.072 Primary osteoarthritis, left ankle and foot; R11.2 Nausea with vomiting, unspecified; Z88.0 Allergy status to penicillin; Z91.012 Allergy to eggs; Z79.899 Other long term (current) drug therapy
CPT/HCPCS: 73620; 80048; 85025; 85652; 86140; 87070; 87077; 87186; 96365; 96366; 96375; 99284; J2765; Q0162

== ENCOUNTER → 2018-10-04 | Outpatient (REF) | payer BC | LOC: M LAB REF 13:15 | PROVIDERS: ATTEND Surgery | DX: T14.8XXA Other injury of unspecified body region, initial encounter (principal); E11.621 Type 2 diabetes mellitus with foot ulcer; L97.519 Non-pressure chronic ulcer of other part of right foot with unspecified severity; X58.XXXA Exposure to other specified factors, initial encounter; Y92.9 Unspecified place or not applicable ==

== ENCOUNTER → 2018-11-02 | Outpatient (REF) | payer BC ==
[2018-11-02 18:39] LABS: COMPLEMENT C3 97 MG/DL (90-180); COMPLEMENT C4 17 MG/DL (10-40)
[2018-11-02 18:54] LABS: INR 0.91
[2018-11-10 14:29] LABS: ANCA-ATYPICAL <1:20 titer (Neg:<1:20); ANTI DS-DNA AB <1:10 titer (.); ANTINUCLEAR ANTIBODIES DIRECT Negative (Negative); CYTOPLASMIC NEUTROP AB ANCA-C <1:20 titer (Neg:<1:20); PERINUCLEAR AB ANCA-P <1:20 titer (Neg:<1:20)
== END ==
LOC: M LAB REF 17:16
PROVIDERS: ATTEND Internal Medicine Nephrology
DX: R31.9 Hematuria, unspecified (principal)

== ENCOUNTER → 2018-11-22 | Outpatient (CLI) | payer BC ==
--- NOTE | 2018-11-24 12:24 | DEXA ---
AP SPINE L1 - L4 1.033 -1.3 -0.1 LT FEMUR TOTAL Metallic screw-plate compression fixation device. LT NECK RT FEMUR TOTAL 0.661 -2.8 -1.8 RT NECK 0.707 -2.4 -1.1 TOTAL BODY TOTAL OTHER COMMENTS: There is low bone density of the spine. There is low bone density of the right hip. FOLLOW-UP: Recommendation for the next bone density exam: 2 years. JESSIE
== END ==
LOC: M WHC 13:50
PROVIDERS: ATTEND Internal Medicine
DX: M81.0 Age-related osteoporosis without current pathological fracture (principal)

== ENCOUNTER → 2018-12-02 | Outpatient (CLI) | payer BC ==
[~2018-12-02] MED LIST changes: +LIDOCAINE 1% MDV 20ML VIAL As Ordered ONE; +MIDAZOLAM INJ 2 MG/2 ML VIAL (J2250) As Ordered ONE; +diphenhydrAMINE INJ 50MG/ML VIAL (J1200) As Ordered ONE; +fentaNYL 100 MCG/2 ML INJECTION (J3010) As Ordered ONE
--- NOTE | 2018-12-02 07:42 | IRHP ---
[facility] IR Pre-Procedure H & P General Date of Service: Dec 02, 2018 Procedure: Same Day Surgery Interval History and Physical I have seen the patient and reviewed last H & P performed within 30 days. There is [no significant interval change]. Patient [is stable for procedure]. History of Present Illness Chief Complaint The patient is a 58-year-old female admitted with a reason for visit of Hematuria, Protienuria. PRE-PROCEDURE DIAGNOSIS: renal disease HEART: normal rate LUNGS: normal breathing at rest Allergies Coded Allergies: Penicillins (Verified Allergy, Intermediate, HIVES,SORES, 10/02/18) egg (Verified Allergy, Unknown, 10/02/18) Medications Scheduled Calcium Carbonate (Calcium), 600 MG PO DAILY, (Reported) Clindamycin Hcl (Clindamycin HCl), 150 MG PO Q6H Ergocalciferol (Vitamin D2) (Vitamin D2), 50,000 UNITS PO 1XWK, (Reported) Furosemide (Furosemide), 40 MG PO DAILY, (Reported) Insulin Human Lispro (Humalog), 1 DOSE SC ACHS, (Reported) Labetalol HCl (Labetalol HCl), 200 MG PO QID Lisinopril (Lisinopril), 40 MG PO DAILY, (Reported) Multivitamins (Thera M Plus Tablet), 1 TAB PO DAILY, (Reported) [place]-3/Dha/Epa/Fish Oil (Fish Oil EC 1,000 mg Softgel), 1,000 UNITS PO DAILY, (Reported) Scheduled PRN Ondansetron HCl (Ondansetron HCl), 4 MG PO Q6HP PRN for nausea/vomiting, (Reported) VS, I&O, 24H, Fishbone Vital Signs/I&O Vital Signs Date Time Temp Pulse Resp B/P (MAP) Pulse Ox O2 Delivery O2 Flow Rate FiO2 12/02/18 07:27 98.3 66 16 100 BENITA COWART MD Dec 02, 2018 07:42
--- NOTE | 2018-12-02 07:43 | IRMSE ---
[facility] [place] IR Moderate Sedation Eval. Date and Time Date: Dec 02, 2018 Time: 07:43 ASA Classification ASA Classification: III-Severe systemic dis. Mallampati Score: I NPO: Yes Obstructive Sleep Apnea: Yes Interval Plan: moderate sedation BENITA COWART MD Dec 02, 2018 07:43
--- NOTE | 2018-12-02 09:01 | POST-OPPD ---
Postoperative Procedure Note Date Of Procedure: Dec 02, 2018 Time Of Procedure: 08:59 PREOPERATIVE DIAGNOSIS: renal failure POSTOPERATIVE DIAGNOSIS: renal failure FINDINGS: normal left kidney PROCEDURE: left kidney biopsy SURGEON: gab ANESTHESIA: moderate sedation SPECIMENS: cores x 3 ESTIMATED BLOOD LOSS: < 5 ml COMPLICATIONS: none POSTOPERATIVE CONDITION: stable BENITA COWART MD Dec 02, 2018 09:01
--- NOTE | 2018-12-02 13:26 | REP ---
IR ultrasound-guided kidney biopsy. IR moderate sedation. Clinical information: Microscopic hematuria. Physician: Dr. Lowry. Procedure: The patient was advised of the benefits, risks and alternatives of the procedure and informed consent was obtained. The time-out was performed with verification of the patient's name, MRN, site of procedure and type of procedure to be performed. The patient was positioned in the prone position on the table. The site was prepped and draped in the usual sterile fashion. Moderate sedation was performed by the physician including the presence of an independent trained observer who assisted in monitoring the patient's level of consciousness and physiologic status. Following the administration of Fentanyl and Versed, the physician spent 45 minutes of continuous face to face time with the patient. Preliminary ultrasound of the kidneys demonstrates unremarkable left kidney. The anticipated puncture site was anesthetized with lidocaine. Under ultrasound guidance a 17 G coaxial needle was inserted into the lower pole of the left kidney. An 18 Gauge biopsy device was inserted through the coaxial needle under ultrasound guidance and used to obtain core biopsies of the left Kidney. The specimen was labeled with the patient's name and medical record number and sent for further analysis. The coaxial needle and biopsy device were removed, pressure held and hemostasis achieved. A follow-up ultrasound through the area demonstrates no significant hematoma. A sterile dressing was applied to the site. The patient tolerated the procedure well and was returned to the PRU in stable condition. EBL: < 5 ml. Complications: None. Conclusion: 1. Ultrasound left Kidney demonstrates no gross abnormality. 2. Successful ultrasound-guided core kidney biopsy. Patient to follow up with referring provider for biopsy results. Thank you for this referral. Electronically Signed by Nupur Lowry MD 12/02/2018 01:24 P
[2018-12-02 16:30] VITALS: BP 180/87
== END ==
LOC: M IRPRO 07:11
PROVIDERS: ATTEND Radiology Diagnostic Radiology
DX: R31.29 Other microscopic hematuria (principal); E10.21 Type 1 diabetes mellitus with diabetic nephropathy; N18.3 Chronic kidney disease, stage 3 (moderate); I12.9 Hypertensive chronic kidney disease with stage 1 through stage 4 chronic kidney disease, or unspecified chronic kidney disease; R60.0 Localized edema; R80.9 Proteinuria, unspecified
CPT/HCPCS: 50200; 76942; 88300; 99152; 99153; J1200; J2250; J3010

== ENCOUNTER → 2018-12-06 | Outpatient (REF) | payer BC ==
[~2018-12-06] MED LIST changes: -LIDOCAINE 1% MDV 20ML VIAL As Ordered ONE; -MIDAZOLAM INJ 2 MG/2 ML VIAL (J2250) As Ordered ONE; -diphenhydrAMINE INJ 50MG/ML VIAL (J1200) As Ordered ONE; -fentaNYL 100 MCG/2 ML INJECTION (J3010) As Ordered ONE
[2018-12-06 16:46] LABS: ALBUMIN 3.4 GM/DL (3.2-5.2); ALT/SGPT 21 U/L (12-78); BILIRUBIN,TOTAL 1.1 MG/DL (0.2-1.0); BLOOD UREA NITROGEN 19 MG/DL (7-18); CALCIUM LEVEL 9.2 MG/DL (8.8-10.2); CARBON DIOXIDE LEVEL 29 MEQ/L (21-32); CHLORIDE LEVEL 108 MEQ/L (98-107); CREATININE FOR GFR 0.83 MG/DL (0.55-1.30); GLOMERULAR FILTRATION RATE > 60.0 (>45); GLUCOSE, FASTING 196 MG/DL (70-100); POTASSIUM SERUM 4.1 MEQ/L (3.5-5.1); SODIUM LEVEL 142 MEQ/L (136-145); TOTAL PROTEIN 6.9 GM/DL (6.4-8.2)
[2018-12-06 16:48] LABS: HEMATOCRIT 34.1 % (36.0-47.0); HEMOGLOBIN 11.2 g/dl (12.0-15.5); MEAN CORPUSCULAR HEMOGLOBIN 29.5 pg (27.0-33.0); MEAN CORPUSCULAR HGB CONC 32.8 g/dl (32.0-36.5); MEAN CORPUSCULAR VOLUME 89.7 fl (80.0-96.0); PLATELET COUNT, AUTOMATED 159 10^3/uL (150-450); WHITE BLOOD COUNT 2.9 10^3/uL (4.0-10.0)
[2018-12-06 16:56] LABS: HEMOGLOBIN A1c 7.7 %
== END ==
LOC: M LAB REF 16:07
PROVIDERS: ATTEND Surgery
DX: E10.621 Type 1 diabetes mellitus with foot ulcer (principal)

== ENCOUNTER → 2018-12-23 | Outpatient (CLI) | payer BC ==
--- NOTE | 2018-12-23 12:45 | REPMRS ---
Patient History The patient states she has not had a clinical breast exam in over a year. Patient is postmenopausal. Family history of ovarian cancer at age 50 or over in mother. Digital Woman Screen Mammo: December 23, 2018 - Exam #: [id number] Bilateral CC and MLO view(s) were taken. Technologist: Laverne Contreras Technologist Prior study comparison: January 09, 2010, bilateral digital woman screen mammo performed at [facility]. FINDINGS: The breast tissue is heterogeneously dense. This may lower the sensitivity of mammography. There is a moderate amount of heterogeneously dense fibroglandular tissue which is fairly symmetric. There is no interval development of dominant mass, architectural distortion, or grouped microcalcification typical of malignancy. There has been no change in the appearance of the mammogram from the prior studies. 3-D tomosynthesis shows no additional findings. Assessment: BI-RADS/ACR category 1 mammogram. Negative Mammogram. Recommendation Routine screening mammogram of both breasts in 1 year (for women over age 40). This patient's Lifetime Breast Cancer RIsk is estimated at 5.0 %. This mammogram was interpreted with the aid of an FDA-approved computer-aided dectection system. Electronically Signed By: Reza Bean MD 12/23/18 [id number]
== END ==
LOC: M WHC 11:06
PROVIDERS: ATTEND Internal Medicine
DX: Z12.31 Encounter for screening mammogram for malignant neoplasm of breast (principal); Z78.0 Asymptomatic menopausal state; Z80.41 Family history of malignant neoplasm of ovary

== ENCOUNTER → 2019-01-04 | Outpatient (REF) | payer BC | LOC: M LAB REF 16:21 | PROVIDERS: ATTEND Surgery | DX: E10.621 Type 1 diabetes mellitus with foot ulcer (principal) ==

== ENCOUNTER → 2019-01-04 | Outpatient (REF) | payer BC, MEDICAID, SELFPAY ==
[2019-01-04 20:38] LABS: HEMATOCRIT 35.7 % (36.0-47.0); HEMOGLOBIN 11.7 g/dl (12.0-15.5); MEAN CORPUSCULAR HEMOGLOBIN 30.5 pg (27.0-33.0); MEAN CORPUSCULAR HGB CONC 32.8 g/dl (32.0-36.5); MEAN CORPUSCULAR VOLUME 93.2 fl (80.0-96.0); PLATELET COUNT, AUTOMATED 129 10^3/uL (150-450); RED BLOOD COUNT 3.83 10^6/uL (4.00-5.40)
[2019-01-04 21:35] LABS: ERYTHROCYTE SEDIMENTATION RATE 17 mm/hr (0-30)
[2019-01-04 21:48] LABS: HEMOGLOBIN A1c 7.9 %
== END ==
LOC: M SFHCWAGY 19:52
PROVIDERS: ATTEND Surgery
DX: E10.621 Type 1 diabetes mellitus with foot ulcer (principal)

== ENCOUNTER → 2019-02-08 | Outpatient (CLI) | payer OTHER ==
[2019-02-08 12:58] LABS: BASO % 1.1 % (0.0-1.0); EOS # 0.1 10^3/uL (0.0-0.5); EOS % 2.3 % (0.0-3.0); HEMATOCRIT 34.2 % (36.0-47.0); HEMOGLOBIN 11.1 g/dl (12.0-15.5); LYMPH # 0.8 10^3/uL (1.5-5.0); LYMPH % 30.8 % (24.0-44.0); MEAN CORPUSCULAR HEMOGLOBIN 30.6 pg (27.0-33.0); MEAN CORPUSCULAR HGB CONC 32.5 g/dl (32.0-36.5); MEAN CORPUSCULAR VOLUME 94.2 fl (80.0-96.0); MONO # 0.2 10^3/uL (0.0-0.8); MONO % 6.4 % (0.0-5.0); NEUTROPHILS # 1.6 10^3/uL (1.5-8.5); PLATELET COUNT, AUTOMATED 117 10^3/uL (150-450); RED BLOOD COUNT 3.63 10^6/uL (4.00-5.40); WHITE BLOOD COUNT 2.7 10^3/uL (4.0-10.0)
[2019-02-08 13:22] LABS: PERCENT SATURATION 25.9 % (13.2-45.0)
[2019-02-08 14:01] LABS: FOLATE 9.9 NG/ML (>5.4)
[2019-02-12 00:13] LABS: HOMOCYST(E)INE SERUM 17.2 umol/L (0.0-15.0)
== END ==
LOC: M WUC 11:35
PROVIDERS: ATTEND Family Medicine
DX: D61.818 Other pancytopenia (principal)

== ENCOUNTER → 2019-03-03 | Outpatient (REF) | payer OTHER ==
[2019-03-03 15:38] LABS: BASO % 1.2 % (0.0-1.0); EOS # 0.1 10^3/uL (0.0-0.5); EOS % 2.8 % (0.0-3.0); HEMATOCRIT 35.4 % (36.0-47.0); HEMOGLOBIN 11.3 g/dl (12.0-15.5); LYMPH % 29.8 % (24.0-44.0); MEAN CORPUSCULAR HGB CONC 31.9 g/dl (32.0-36.5); MEAN CORPUSCULAR VOLUME 93.9 fl (80.0-96.0); MONO # 0.3 10^3/uL (0.0-0.8); NEUTROPHILS # 1.9 10^3/uL (1.5-8.5); NEUTROPHILS % 57.9 % (36.0-66.0); PLATELET COUNT, AUTOMATED 153 10^3/uL (150-450); RED BLOOD COUNT 3.77 10^6/uL (4.00-5.40); WHITE BLOOD COUNT 3.3 10^3/uL (4.0-10.0)
[2019-03-03 16:05] LABS: ERYTHROCYTE SEDIMENTATION RATE 34 mm/hr (0-30)
== END ==
LOC: M SFHCPLAZ 13:13
PROVIDERS: ATTEND Internal Medicine Infectious Disease
DX: M86.672 Other chronic osteomyelitis, left ankle and foot (principal)

== ENCOUNTER → 2019-10-03 | Outpatient (CLI) | payer OTHER ==
[~2019-10-03] MED LIST changes: +ONDA-83 PO; -ONDA4TAB5 PO
[2019-10-03 11:40] LABS: ALBUMIN 3.4 GM/DL (3.2-5.2); BILIRUBIN,TOTAL 0.9 MG/DL (0.2-1.0); CALCIUM LEVEL 8.8 MG/DL (8.8-10.2); CHOLESTEROL RISK RATIO 2.261 (<5); CREATININE FOR GFR 1.13 MG/DL (0.55-1.30); GLOMERULAR FILTRATION RATE 52.1 (>45); POTASSIUM SERUM 5.6 MEQ/L (3.5-5.1); TOTAL PROTEIN 6.5 GM/DL (6.4-8.2)
[2019-10-03 17:32] LABS: CREATININE, URINE 81.7 MG/DL; MAU/CREAT RATIO 833.5 MCG/MG (0.0-30.0)
== END ==
LOC: M WUC 09:40
PROVIDERS: ATTEND Internal Medicine Endocrinology, Diabetes & Metabolism
DX: E10.65 Type 1 diabetes mellitus with hyperglycemia (principal)

== ENCOUNTER 2019-12-30 11:19 | Emergency (ER) | payer OTHER ==
[~2019-12-30] VITALS: Ht 170.2 cm; Wt 80.1 kg
[~2019-12-30 11:19] MED LIST changes: +ASPI81TA86 PO
[2019-12-30] MEDS ORDERED: ADME100I (12:18)
[2019-12-30] MEDS ORDERED: AMLO1TAB24 PO (12:18)
[2019-12-30] MEDS ORDERED: ATOR1TAB19 PO (12:18)
--- NOTE | 2019-12-30 12:20 | REPVR ---
PROCEDURE INFORMATION: Exam: CT Head Without Contrast Exam date and time: 12/30/2019 11:55 AM Age: 59 years old Clinical indication: Pain; Dizziness; Headache; Additional info: Headache followed by dizziness TECHNIQUE: Imaging protocol: Computed tomography of the head without contrast. Radiation optimization: All CT scans at this facility use at least one of these dose optimization techniques: automated exposure control; mA and/or kV adjustment per patient size (includes targeted exams where dose is matched to clinical indication); or iterative reconstruction. COMPARISON: CT Head without contrast 06/01/2017 6:26 AM FINDINGS: Brain: No hemorrhage. Unremarkable white matter for the patient's age. No mass effect. No evolving territorial infarct. Ventricles: The ventricles are larger compared to the prior study. For example, the distance between the frontal horns is 3.5 cm compared to 2.7 cm previously. The anterior 3rd ventricle measures 0.8 cm compared to 0.6 cm previously. Bones/joints: Unremarkable. No acute fracture. Sinuses: Visualized sinuses are unremarkable. No fluid levels. Mastoid air cells: Visualized mastoid air cells are well aerated. Orbits: Thinning of the lenses of the globes consistent with prior lens surgery. Soft tissues: Unremarkable. IMPRESSION: 1. Mild interval ventriculomegaly of uncertain significance. A component of developing normal pressure hydrocephalus is possible in the appropriate clinical scenario. 2. No acute intracranial abnormality seen. Electronically signed by: Laurel Lowry On 12/30/2019 12:19:46 PM
[2019-12-30] MEDS ORDERED: ONDANSETRON 4MG/2ML VIAL IV ONE (12:30)
[2019-12-30] MEDS ORDERED: ACETAMINOPHEN TAB 650MG DOSE (2X325MG) PO ONE (12:30)
[2019-12-30] MEDS ORDERED: NS 1,000 ML IV ONE (12:30)
[2019-12-30 13:49] LABS: BASO % 0.5 % (0.0-1.0); EOS % 0.5 % (0.0-3.0); HEMATOCRIT 39.8 % (36.0-47.0); HEMOGLOBIN 13.2 g/dl (12.0-15.5); LYMPH # 0.6 10^3/uL (1.5-5.0); LYMPH % 17.5 % (24.0-44.0); MEAN CORPUSCULAR HEMOGLOBIN 30.8 pg (27.0-33.0); MEAN CORPUSCULAR HGB CONC 33.2 g/dl (32.0-36.5); MONO # 0.2 10^3/uL (0.0-0.8); MONO % 4.9 % (0.0-5.0); NEUTROPHILS # 2.8 10^3/uL (1.5-8.5); NEUTROPHILS % 76.3 % (36.0-66.0); PLATELET COUNT, AUTOMATED 156 10^3/uL (150-450); RED BLOOD COUNT 4.28 10^6/uL (4.00-5.40); WHITE BLOOD COUNT 3.7 10^3/uL (4.0-10.0)
[2019-12-30 13:49] LABS: VENOUS BASE EXCESS -2.4 (-2.0-2.0); VENOUS PARTIAL PRESSURE CO2 47.2 mmHg (38.0-50.0); VENOUS PH 7.324 UNITS (7.330-7.430); VENOUS STANDARD HCO3 22.5 MEQ/L; VENOUS TOTAL CO2 25.4 MEQ/L (24.0-28.0)
[2019-12-30 13:50] LABS: VENOUS O2 SATURATION 97.8 % (60.0-80.0)
[2019-12-30 14:16] LABS: ALBUMIN 3.7 GM/DL (3.2-5.2); ALT/SGPT 17 U/L (12-78); BILIRUBIN,DIRECT 0.2 MG/DL (0.0-0.2); BILIRUBIN,TOTAL 1.9 MG/DL (0.2-1.0); LIPASE < 10 U/L (73-393)
[2019-12-30 14:30] LABS: HEMOGLOBIN A1c 7.7 %
[2019-12-30] MEDS ORDERED: ONDA4TAB6 PO (15:40)
[2019-12-30 16:12] VITALS: BP 190/110
[2019-12-30] MEDS ORDERED: lisinopriL 40 MG TAB PO ONE (16:30)
[2019-12-30] MEDS ORDERED: amLODIPine 5 MG TAB PO ONE (16:30)
[2019-12-30 16:36] VITALS: BP 190/110
--- NOTE | 2020-01-02 15:27 | ED PDOC ---
Post-Departure Follow-Up dr linda faxed formal report of ct head for fu Romero Dawson MD Jan 02, 2020 15:26
== END 2019-12-30 17:08 | disposition home or self-care (01) ==
LOC: M ED 11:19
DX: R51 Headache (principal); R11.0 Nausea; E11.9 Type 2 diabetes mellitus without complications; I10 Essential (primary) hypertension; Z79.4 Long term (current) use of insulin; Z88.0 Allergy status to penicillin; Z91.012 Allergy to eggs
CPT/HCPCS: 36415; 70450; 80047; 80076; 81001; 82803; 83036; 83690; 85025; 87086; 96361; 96374; 99284; J2405

== ENCOUNTER → 2020-11-14 | Outpatient (REF) | payer OTHER ==
[~2020-11-14] MED LIST changes: +ADME100I; +AMLO1TAB24 PO; +ATOR1TAB19 PO; -CLIN150C14 PO; +CLIN150C15 PO; -LISI-542 PO; +LISI-898 PO; -LISI40TA PO; +LISI40TA4 PO
== END ==
LOC: M LAB REF 17:10
PROVIDERS: ATTEND Nurse Practitioner Family
DX: E83.42 Hypomagnesemia (principal)

== ENCOUNTER → 2021-02-06 | Outpatient (CLI) | payer OTHER ==
[~2021-02-06] MED LIST changes: -CLIN150C15 PO; +CLIN150C17 PO
[2021-02-06 12:39] LABS: EOS # 0.1 10^3/uL (0.0-0.5); EOS % 4.2 % (0.0-3.0); HEMATOCRIT 36.6 % (36.0-47.0); HEMOGLOBIN 11.4 g/dl (12.0-15.5); LYMPH % 31.4 % (24.0-44.0); MEAN CORPUSCULAR HEMOGLOBIN 29.5 pg (27.0-33.0); MEAN CORPUSCULAR HGB CONC 31.1 g/dl (32.0-36.5); MEAN CORPUSCULAR VOLUME 94.6 fl (80.0-96.0); MONO # 0.2 10^3/uL (0.0-0.8); MONO % 7.1 % (2.0-8.0); NEUTROPHILS # 1.7 10^3/uL (1.5-8.5); NEUTROPHILS % 56.3 % (36.0-66.0); PLATELET COUNT, AUTOMATED 165 10^3/uL (150-450); RED BLOOD COUNT 3.87 10^6/uL (4.00-5.40); WHITE BLOOD COUNT 3.1 10^3/uL (4.0-10.0)
[2021-02-06 19:27] LABS: HEMOGLOBIN A1c 6.9 %
== END ==
LOC: M LAB 11:11
PROVIDERS: ATTEND Physician Assistant
DX: E11.621 Type 2 diabetes mellitus with foot ulcer (principal)

== ENCOUNTER → 2021-04-03 | Outpatient (CLI) | payer MEDICARE, OTHER ==
[~2021-04-03] MED LIST changes: -CEFD1CAP8 PO; +CEFD300C41 PO; -LISI-898 PO; +LISI5TAB11 PO
== END ==
LOC: M RAD 11:18
PROVIDERS: ATTEND Nurse Practitioner Family
DX: N18.31 Chronic kidney disease, stage 3a (principal)

== ENCOUNTER → 2021-04-22 | Outpatient (REF) | payer MEDICARE, OTHER ==
[2021-04-22 18:12] LABS: RSV AMPLIFICATION NEGATIVE (NEGATIVE)
== END ==
LOC: M LAB REF 16:29
PROVIDERS: ATTEND Physician Assistant Medical
DX: R50.9 Fever, unspecified (principal); R53.83 Other fatigue

== ENCOUNTER → 2021-11-12 | Outpatient (REF) | payer MEDICARE, MEDICAID | LOC: M LAB REF 18:18 | PROVIDERS: ATTEND Nurse Practitioner Family | DX: I12.9 Hypertensive chronic kidney disease with stage 1 through stage 4 chronic kidney disease, or unspecified chronic kidney disease (principal); R60.0 Localized edema ==

== ENCOUNTER → 2021-11-19 | Outpatient (CLI) | payer MEDICAID, MEDICARE ==
[~2021-11-19] MED LIST changes: +GASTROGRAFIN SOLUTION 30ML (Q9963) As Ordered ONE; +ISOVUE-370 76% 100ML VIAL As Ordered ONE
== END ==
LOC: M RAD 13:00
PROVIDERS: ATTEND Nurse Practitioner Family
DX: D41.01 Neoplasm of uncertain behavior of right kidney (principal); N28.1 Cyst of kidney, acquired
CPT/HCPCS: 74178; Q9963; Q9967

== ENCOUNTER 2022-03-02 12:59 | Inpatient (IN) | payer MEDICAID, MEDICARE, OTHER ==
[~2022-03-02] VITALS: Ht 170.2 cm; Wt 84.2 kg
[~2022-03-02 12:59] MED LIST changes: -ADME100I; +ADME100I INJ; -DOXY-350 PO; +DOXY-444 PO; +FISH10005 PO; -FISH7.5C PO; -GASTROGRAFIN SOLUTION 30ML (Q9963) As Ordered ONE; -ISOVUE-370 76% 100ML VIAL As Ordered ONE; +SIMV-252 PO; -ZOCO10TA PO
[2022-03-02] MEDS ORDERED: NS 1,000 ML IV ONE ×2 (14:15→15:35)
[2022-03-02 14:25] LABS: BASO % 0.4 % (0.0-1.0); EOS % 0.4 % (0.0-3.0); HEMATOCRIT 35.3 % (36.0-47.0); HEMOGLOBIN 11.1 g/dl (12.0-15.5); LYMPH # 0.2 10^3/uL (1.5-5.0); LYMPH % 6.8 % (24.0-44.0); MEAN CORPUSCULAR HEMOGLOBIN 29.1 pg (27.0-33.0); MEAN CORPUSCULAR HGB CONC 31.4 g/dl (32.0-36.5); MEAN CORPUSCULAR VOLUME 92.4 fl (80.0-96.0); MONO % 0.8 % (2.0-8.0); NEUTROPHILS # 2.4 10^3/uL (1.5-8.5); NEUTROPHILS % 91.6 % (36.0-66.0); PLATELET COUNT, AUTOMATED 159 10^3/uL (150-450); RED BLOOD COUNT 3.82 10^6/uL (4.00-5.40); WHITE BLOOD COUNT 2.7 10^3/uL (4.0-10.0)
[2022-03-02 14:38] LABS: CK-MB VALUE MASS < 1.0 NG/ML (<3.6); CPK CREATINE PHOSPHOKINASE 32 U/L (26-192); CREATININE FOR GFR 1.28 MG/DL (0.55-1.30); MB/CK RELATIVE INDEX 3.12 (< OR =4)
[2022-03-02 14:39] LABS: ACETONE/KETONE 18.54 MG/DL (<2.81); ALBUMIN 2.8 GM/DL (3.2-5.2); BILIRUBIN,DIRECT 0.8 MG/DL (0.0-0.2); BILIRUBIN,TOTAL 2.4 MG/DL (0.2-1.0); CALCIUM LEVEL 8.8 MG/DL (8.8-10.2); GLOMERULAR FILTRATION RATE 44.8 (>45); MAGNESIUM LEVEL 1.9 MG/DL (1.8-2.4); POTASSIUM SERUM 4.2 MEQ/L (3.5-5.1); TOTAL PROTEIN 7.3 GM/DL (6.4-8.2)
[2022-03-02] MEDS ORDERED: ONDANSETRON 4MG 2ML VIAL IV ONE (14:40)
[2022-03-02 14:51] LABS: VENOUS BASE EXCESS -1.1 (-2.0-2.0); VENOUS HCO3 23.5 MEQ/L (23.0-27.0); VENOUS O2 SATURATION 89.6 % (60.0-80.0); VENOUS PARTIAL PRESSURE CO2 38.9 mmHg (38.0-50.0); VENOUS PH 7.399 UNITS (7.330-7.430); VENOUS STANDARD HCO3 23.4 MEQ/L; VENOUS TOTAL CO2 24.7 MEQ/L (24.0-28.0)
[2022-03-02 15:08] LABS: HEMOGLOBIN A1c 6.8 %
[2022-03-02] MEDS ORDERED: ISOVUE-370 76% 100ML VIAL As Ordered ONE (17:17)
[2022-03-02] MEDS ORDERED: DEXTROSE 50% 50 ML SYRINGE IV PRN (18:55)
[2022-03-02] MEDS ORDERED: GLUCAGON INJ 1MG VIAL SC PRN (18:55)
[2022-03-02] MEDS ORDERED: INSULIN LISPRO (NovoLOG) PER UNIT SC SCH (18:55)
[2022-03-02] MEDS ORDERED: ACETAMINOPHEN TAB 650MG DOSE (2X325MG) PO PRN (18:55)
[2022-03-02] MEDS ORDERED: GLUCOSE 4GM CHEW TABLET PO PRN (18:55)
[2022-03-02] MEDS ORDERED: LR 1,000 ML IV SCH (19:00)
[2022-03-02] MEDS ORDERED: ERGO500029 PO (19:36)
[2022-03-02] MEDS ORDERED: MED REC COMMENT (19:37)
[2022-03-02] MEDS ORDERED: HOME MED LIST COMPLETE! XX SCH (19:40)
[2022-03-02 20:21] LABS: INR 1.11; PROTHROMBIN TIME 14.5 SECONDS (12.5-14.5)
[2022-03-02 20:22] LABS: PARTIAL THROMBOPLASTIN TIME 31.3 SECONDS (24.8-34.2)
[2022-03-02] MEDS: CIPROFLOXACIN 400 MG in IV 1 EA IV SCH (21:00)
[2022-03-02] MEDS: metroNIDAZOLE 500 MG in IV 1 EA IV SCH (22:22)
[2022-03-03] MEDS ORDERED: UNRESOLVED CLARIFICATION ENTRY XX SCH (00:01)
[2022-03-03] MEDS: metroNIDAZOLE 500 MG in IV 1 EA IV SCH ×3 (06:21→21:27)
[2022-03-03 07:31] LABS: HEMOGLOBIN 10.1 g/dl (12.0-15.5); MEAN CORPUSCULAR HEMOGLOBIN 29.4 pg (27.0-33.0); MEAN CORPUSCULAR HGB CONC 30.6 g/dl (32.0-36.5); MEAN CORPUSCULAR VOLUME 95.9 fl (80.0-96.0); PLATELET COUNT, AUTOMATED 119 10^3/uL (150-450); RED BLOOD COUNT 3.44 10^6/uL (4.00-5.40); WHITE BLOOD COUNT 7.4 10^3/uL (4.0-10.0)
[2022-03-03] MEDS: CIPROFLOXACIN 400 MG in IV 1 EA IV SCH ×2 (08:30→20:19)
[2022-03-03 08:37] LABS: ACETONE/KETONE > 46.00 MG/DL (<2.81); BLOOD UREA NITROGEN 35 MG/DL (7-18); CALCIUM LEVEL 8.1 MG/DL (8.8-10.2); CARBON DIOXIDE LEVEL 14 MEQ/L (21-32); CHLORIDE LEVEL 103 MEQ/L (98-107); CREATININE FOR GFR 1.53 MG/DL (0.55-1.30); GLOMERULAR FILTRATION RATE 36.5 (>45); GLUCOSE, FASTING 478 MG/DL (70-100); POTASSIUM SERUM 4.9 MEQ/L (3.5-5.1); SODIUM LEVEL 135 MEQ/L (136-145)
[2022-03-03] MEDS ORDERED: lisinopriL 40MG TAB PO SCH (09:00)
[2022-03-03] MEDS ORDERED: HumuLIN R (REGULAR) INSULIN (NovoLIN R) **100U/ML** PER UNIT IV STA ×2 (09:09→09:16)
[2022-03-03] MEDS ORDERED: NS 1,000 ML IV SCH (09:10)
[2022-03-03] MEDS ORDERED: LR 1,000 ML IV SCH (09:20)
[2022-03-03] MEDS ORDERED: INSULIN REGULAR IN 0.9 % NACL 100 UNIT in IV 1 EA IV SCH ×2 (09:20)
[2022-03-03] MEDS ORDERED: LR 1,000 ML IV ONE (09:20)
[2022-03-03] MEDS: ENOXAPARIN 30MG/0.3ML SYRINGE (J1650 PER 10MG) SC SCH (09:24)
[2022-03-03 11:10] VITALS: BP 127/60
[2022-03-03] MEDS ORDERED: NS 1,000 ML IV ONE ×2 (11:15→14:05)
[2022-03-03 11:32] LABS: HEPATITIS B CORE ANTIBODY IGM NEGATIVE (NEGATIVE); HEPATITIS B SURFACE ANTIGEN NEGATIVE (NEGATIVE); HEPATITIS C VIRUS ABY INDEX 0.3 INDEX (<0.8)
[2022-03-03 12:33] VITALS: BP 124/58
[2022-03-03] MEDS: INSULIN IV RATE CHANGE DOCUMENTATION ML/HR XX SCH ×6 (12:37→22:10)
[2022-03-03 13:03] LABS: ALBUMIN 2.1 GM/DL (3.2-5.2); BILIRUBIN,TOTAL 1.1 MG/DL (0.2-1.0); CALCIUM LEVEL 7.6 MG/DL (8.8-10.2); CREATININE FOR GFR 1.69 MG/DL (0.55-1.30); GLOMERULAR FILTRATION RATE 32.5 (>45); POTASSIUM SERUM 4.1 MEQ/L (3.5-5.1); TOTAL PROTEIN 5.6 GM/DL (6.4-8.2)
[2022-03-03 14:10] VITALS: BP 121/58
[2022-03-03 16:00] VITALS: BP 108/52
[2022-03-03] MEDS: METOCLOPRAMIDE INJ 10MG/2ML VIAL (J2765 PER 1) IV PRN (16:25)
[2022-03-03 17:36] LABS: ALBUMIN 2.2 GM/DL (3.2-5.2); BILIRUBIN,TOTAL 0.9 MG/DL (0.2-1.0); CALCIUM LEVEL 7.6 MG/DL (8.8-10.2); CREATININE FOR GFR 1.57 MG/DL (0.55-1.30); GLOMERULAR FILTRATION RATE 35.4 (>45); TOTAL PROTEIN 6.3 GM/DL (6.4-8.2)
[2022-03-03] MEDS ORDERED: D5W/0.45% SODIUM CHLORIDE 1,000 ML IV SCH (18:40)
[2022-03-03 20:00] VITALS: BP 104/55
[2022-03-03] MEDS: ONDANSETRON 4MG 2ML VIAL IV PRN (21:24)
[2022-03-03] MEDS ORDERED: LEVEMIR (INSULIN DETEMIR) 1 UNITS/0.01ML SC ONE (23:15)
[2022-03-04] VITALS (9 sets, daily range): BP systolic 104–182; BP diastolic 56–77
[2022-03-04 01:04] LABS: ALBUMIN 2.2 GM/DL (3.2-5.2); BILIRUBIN,TOTAL 0.9 MG/DL (0.2-1.0); CALCIUM LEVEL 7.6 MG/DL (8.8-10.2); CREATININE FOR GFR 1.61 MG/DL (0.55-1.30); GLOMERULAR FILTRATION RATE 34.4 (>45); POTASSIUM SERUM 4.4 MEQ/L (3.5-5.1); TOTAL PROTEIN 6.3 GM/DL (6.4-8.2)
[2022-03-04 04:41] LABS: HEMATOCRIT 33.3 % (36.0-47.0); HEMOGLOBIN 10.6 g/dl (12.0-15.5); MEAN CORPUSCULAR HEMOGLOBIN 29.8 pg (27.0-33.0); MEAN CORPUSCULAR HGB CONC 31.8 g/dl (32.0-36.5); MEAN CORPUSCULAR VOLUME 93.5 fl (80.0-96.0); PLATELET COUNT, AUTOMATED 164 10^3/uL (150-450); RED BLOOD COUNT 3.56 10^6/uL (4.00-5.40); WHITE BLOOD COUNT 8.8 10^3/uL (4.0-10.0)
[2022-03-04 05:09] LABS: CREATININE FOR GFR 1.69 MG/DL (0.55-1.30)
[2022-03-04 05:10] LABS: CALCIUM LEVEL 7.9 MG/DL (8.8-10.2); GLOMERULAR FILTRATION RATE 32.5 (>45); MAGNESIUM LEVEL 2.1 MG/DL (1.8-2.4); POTASSIUM SERUM 4.2 MEQ/L (3.5-5.1)
[2022-03-04] MEDS: metroNIDAZOLE 500 MG in IV 1 EA IV SCH ×2 (05:44→14:09)
[2022-03-04] MEDS: ONDANSETRON 4MG 2ML VIAL IV PRN (07:09)
[2022-03-04] MEDS: LEVEMIR (INSULIN DETEMIR) 1 UNITS/0.01ML SC SCH ×2 (08:14→21:00)
[2022-03-04] MEDS: ENOXAPARIN 30MG/0.3ML SYRINGE (J1650 PER 10MG) SC SCH (08:14)
[2022-03-04] MEDS: CIPROFLOXACIN 400 MG in IV 1 EA IV SCH ×2 (08:14→22:15)
[2022-03-04] MEDS ORDERED: LR 1,000 ML IV ONE (08:15)
[2022-03-04] MEDS ORDERED: LEVEMIR (INSULIN DETEMIR) 1 UNITS/0.01ML SC SCH (09:00)
[2022-03-04] MEDS: amLODIPine 5 MG TAB PO SCH (14:39)
[2022-03-04] MEDS ORDERED: NS 1,000 ML IV SCH (14:40)
[2022-03-04] MEDS: INSULIN LISPRO (NovoLOG) PER UNIT SC SCH (17:48)
[2022-03-04] MEDS ORDERED: INSULIN LISPRO (NovoLOG) PER UNIT SC SCH (21:00)
[2022-03-05] VITALS (7 sets, daily range): BP systolic 138–192; BP diastolic 66–88
[2022-03-05] MEDS: metroNIDAZOLE 500 MG in IV 1 EA IV SCH ×2 (00:30→05:06)
[2022-03-05 05:09] LABS: HEMATOCRIT 31.6 % (36.0-47.0); MEAN CORPUSCULAR HEMOGLOBIN 29.4 pg (27.0-33.0); MEAN CORPUSCULAR HGB CONC 31.6 g/dl (32.0-36.5); MEAN CORPUSCULAR VOLUME 92.9 fl (80.0-96.0); PLATELET COUNT, AUTOMATED 140 10^3/uL (150-450); WHITE BLOOD COUNT 5.2 10^3/uL (4.0-10.0)
[2022-03-05] MEDS ORDERED: hydrALAZINE 20MG/ML 1ML VIAL (J0360 PER 20MG) IV PRN (05:20)
[2022-03-05 05:41] LABS: CALCIUM LEVEL 7.9 MG/DL (8.8-10.2); CREATININE FOR GFR 1.15 MG/DL (0.55-1.30); GLOMERULAR FILTRATION RATE 50.7 (>45); POTASSIUM SERUM 4.5 MEQ/L (3.5-5.1)
[2022-03-05] MEDS: INSULIN LISPRO (NovoLOG) PER UNIT SC SCH ×3 (08:14→17:36)
[2022-03-05] MEDS: LEVEMIR (INSULIN DETEMIR) 1 UNITS/0.01ML SC SCH (08:15)
[2022-03-05] MEDS: amLODIPine 5 MG TAB PO SCH (08:15)
[2022-03-05] MEDS: CIPROFLOXACIN 400 MG in IV 1 EA IV SCH (08:16)
[2022-03-05] MEDS: ENOXAPARIN 30MG/0.3ML SYRINGE (J1650 PER 10MG) SC SCH (08:16)
[2022-03-05] MEDS: FUROSEMIDE 20 MG TAB PO SCH (08:22)
[2022-03-05] MEDS: METOCLOPRAMIDE INJ 10MG/2ML VIAL (J2765 PER 1) IV PRN (10:06)
[2022-03-05] MEDS: metroNIDAZOLE (FLAGYL) 500MG TABLET PO SCH ×2 (14:05→21:17)
[2022-03-05] MEDS: CIPROFLOXACIN 500MG TABLET PO SCH (17:36)
[2022-03-05] MEDS ORDERED: INSULIN LISPRO (NovoLOG) PER UNIT SQ SCH (19:50)
[2022-03-05] MEDS ORDERED: ADMELOG XX PRN (20:15)
[2022-03-05] MEDS: [UNRECOGNIZED DRUG - REMARK] XX SCH (20:20)
[2022-03-06 05:40] VITALS: BP 174/100
[2022-03-06] MEDS: metroNIDAZOLE (FLAGYL) 500MG TABLET PO SCH (05:58)
[2022-03-06] MEDS: CIPROFLOXACIN 500MG TABLET PO SCH (05:58)
[2022-03-06 06:04] LABS: HEMATOCRIT 32.3 % (36.0-47.0); HEMOGLOBIN 10.2 g/dl (12.0-15.5); MEAN CORPUSCULAR HEMOGLOBIN 29.3 pg (27.0-33.0); MEAN CORPUSCULAR HGB CONC 31.6 g/dl (32.0-36.5); MEAN CORPUSCULAR VOLUME 92.8 fl (80.0-96.0); PLATELET COUNT, AUTOMATED 138 10^3/uL (150-450); RED BLOOD COUNT 3.48 10^6/uL (4.00-5.40); WHITE BLOOD COUNT 3.7 10^3/uL (4.0-10.0)
[2022-03-06 06:36] VITALS: BP 174/97
[2022-03-06 07:01] LABS: BLOOD UREA NITROGEN 13 MG/DL (7-18); CARBON DIOXIDE LEVEL 26 MEQ/L (21-32); CHLORIDE LEVEL 105 MEQ/L (98-107); CREATININE FOR GFR 0.94 MG/DL (0.55-1.30); GLOMERULAR FILTRATION RATE > 60.0 (>45); GLUCOSE, FASTING 269 MG/DL (70-100); POTASSIUM SERUM 3.9 MEQ/L (3.5-5.1); SODIUM LEVEL 137 MEQ/L (136-145)
[2022-03-06] MEDS ORDERED: METR-265 PO (07:29)
[2022-03-06] MEDS ORDERED: CIPR-249 PO (07:29)
[2022-03-06] MEDS ORDERED: lisinopriL 40MG TAB PO SCH (09:00)
[2022-03-06] MEDS: ENOXAPARIN 30MG/0.3ML SYRINGE (J1650 PER 10MG) SC SCH (09:00)
[2022-03-06] MEDS ORDERED: FLUBLOK(EGG FREE)(QUAD)INFLUENZA VACC 0.5ML SYRINGE 18YRS & OLDER IM.IMMUN ONE (09:00)
[2022-03-06] MEDS: [UNRECOGNIZED DRUG - REMARK] XX SCH (09:08)
[2022-03-06] MEDS: FUROSEMIDE 20 MG TAB PO SCH (09:08)
[2022-03-06] MEDS ORDERED: PROB1CAP10 PO (18:16)
== END 2022-03-06 11:35 | disposition home or self-care (01) | DRG 813 ==
LOC: M ED 12:59 → M ED INP 18:52 → ENRESERV 03-03 09:33 → M ICU 03-03 10:58 → M MS5PR 03-05 18:43
PROVIDERS: ADMIT Family Medicine; ATTEND Internal Medicine
DX: T85.694A Other mechanical complication of insulin pump, initial encounter (principal); A41.9 Sepsis, unspecified organism; E10.10 Type 1 diabetes mellitus with ketoacidosis without coma; N17.9 Acute kidney failure, unspecified; E10.22 Type 1 diabetes mellitus with diabetic chronic kidney disease; I27.20 Pulmonary hypertension, unspecified; E10.621 Type 1 diabetes mellitus with foot ulcer; E87.5 Hyperkalemia; E78.5 Hyperlipidemia, unspecified; I12.9 Hypertensive chronic kidney disease with stage 1 through stage 4 chronic kidney disease, or unspecified chronic kidney disease; K52.9 Noninfective gastroenteritis and colitis, unspecified; N18.9 Chronic kidney disease, unspecified; N39.0 Urinary tract infection, site not specified; Z79.4 Long term (current) use of insulin; Z79.899 Other long term (current) drug therapy; Z88.0 Allergy status to penicillin; Z91.018 Allergy to other foods; Z91.012 Allergy to eggs; Z98.41 Cataract extraction status, right eye; Z98.42 Cataract extraction status, left eye; Y83.1 Surgical operation with implant of artificial internal device as the cause of abnormal reaction of the patient, or of later complication, without mention of misadventure at the time of the procedure; L97.509 Non-pressure chronic ulcer of other part of unspecified foot with unspecified severity

== ENCOUNTER → 2022-05-28 | Outpatient (REF) | payer MEDICARE, MEDICAID ==
[~2022-05-28] MED LIST changes: +ERGO500029 PO; +MED REC COMMENT; +METR-265 PO; +PROB1CAP10 PO
[2022-05-28 17:34] LABS: CREATININE, URINE 28.8 MG/DL; MAU/CREAT RATIO 65.9 MCG/MG (0.0-30.0)
== END ==
LOC: M LAB REF 16:46
PROVIDERS: ATTEND Nurse Practitioner Family
DX: E10.21 Type 1 diabetes mellitus with diabetic nephropathy (principal)

== ENCOUNTER → 2022-06-25 | Outpatient (REF) | payer MEDICARE, OTHER, MEDICAID | LOC: M LAB REF 12:00 | PROVIDERS: ATTEND Physician Assistant | DX: B34.9 Viral infection, unspecified (principal) ==

== ENCOUNTER → 2022-07-28 | Outpatient (REF) | payer MEDICARE, OTHER, MEDICAID ==
[~2022-07-28] MED LIST changes: +FLUT50SP17; -FLUTISP
== END ==
LOC: M SFHCWAGY 17:30
PROVIDERS: ATTEND Nurse Practitioner Family
DX: Z12.4 Encounter for screening for malignant neoplasm of cervix (principal)

== ENCOUNTER 2022-08-13 10:28 | Inpatient (IN) | payer MEDICARE, OTHER ==
[~2022-08-13] VITALS: Ht 167.6 cm; Wt 89.3 kg
[~2022-08-13 10:28] MED LIST changes: +amLODIPine 5 MG TAB PO SCH
[2022-08-13] MEDS ORDERED: ACETAMINOPHEN 500 MG TAB PO ONE (11:20)
[2022-08-13] MEDS ORDERED: NS 1,000 ML IV ONE (11:20)
[2022-08-13] MEDS ORDERED: METOCLOPRAMIDE INJ 10MG/2ML VIAL IV ONE (11:20)
[2022-08-13 11:39] LABS: BASO % 0.5 % (0.0-1.0); EOS % 0.2 % (0.0-3.0); HEMATOCRIT 31.8 % (36.0-47.0); HEMOGLOBIN 10.5 g/dl (12.0-15.5); LYMPH # 0.7 10^3/uL (1.5-5.0); LYMPH % 11.1 % (24.0-44.0); MEAN CORPUSCULAR HEMOGLOBIN 30.3 pg (27.0-33.0); MEAN CORPUSCULAR VOLUME 91.6 fl (80.0-96.0); MONO # 0.6 10^3/uL (0.0-0.8); MONO % 9.9 % (2.0-8.0); NEUTROPHILS # 4.7 10^3/uL (1.5-8.5); NEUTROPHILS % 77.6 % (36.0-66.0); PLATELET COUNT, AUTOMATED 315 10^3/uL (150-450); RED BLOOD COUNT 3.47 10^6/uL (4.00-5.40); WHITE BLOOD COUNT 6.1 10^3/uL (4.0-10.0)
[2022-08-13] MEDS ORDERED: NS 1,450 ML in IV 1 EA IV ONE (11:55)
[2022-08-13] MEDS ORDERED: lisinopriL 40MG TAB PO ONE (11:55)
[2022-08-13 12:01] LABS: ACETONE/KETONE 0.7 MMOL/L (0.02-0.27)
[2022-08-13 12:10] LABS: VENOUS BASE EXCESS -3.7 (-2.0-2.0); VENOUS HCO3 21.6 MEQ/L (23.0-27.0); VENOUS O2 SATURATION 91.4 % (60.0-80.0); VENOUS PARTIAL PRESSURE CO2 40.3 mmHg (38.0-50.0); VENOUS PARTIAL PRESSURE O2 66.3 mmHg (30.0-50.0); VENOUS PH 7.348 UNITS (7.330-7.430); VENOUS STANDARD HCO3 21.3 MEQ/L; VENOUS TOTAL CO2 22.9 MEQ/L (24.0-28.0)
[2022-08-13 12:14] LABS: ALBUMIN 2.3 G/DL (3.2-5.2); BILIRUBIN,DIRECT 0.4 MG/DL (<0.4); BILIRUBIN,TOTAL 0.8 MG/DL (0.3-1.2); TOTAL PROTEIN 7.6 G/DL (5.7-8.2)
[2022-08-13 12:35] LABS: RSV AMPLIFICATION NEGATIVE (NEGATIVE)
[2022-08-13 12:36] LABS: HEMOGLOBIN A1c 6.8 % (4.0-6.0)
[2022-08-13 13:52] LABS: APPEARANCE, URINE TURBID (CLEAR); BACTERIA, URINE AUTO 1+ (NEGATIVE); BILIRUBIN, URINE AUTO NEGATIVE (NEGATIVE); BLOOD, URINE BLOOD 3+ (NEGATIVE); COLOR, URINE AMBER (YELLOW); GLUCOSE, URINE (UA) AUTO 1+ mg/dL (NEGATIVE); KETONE, URINE AUTO NEGATIVE (NEGATIVE); LEUKOCYTE ESTERASE, URINE AUTO 2+ (NEGATIVE); NITRITE, URINE AUTO NEGATIVE (NEGATIVE); PROTEIN, URINE AUTO 3+ mg/dL (NEGATIVE); RBC, URINE AUTO TNTC /HPF (0-3); SPECIFIC GRAVITY URINE AUTO 1.029 (1.002-1.035); SQUAMOUS EPITHELIAL CELL UR AU 7 /HPF (0-6); UROBILINOGEN, URINE AUTO 0.2 mg/dL (0.0-2.0); WBC, URINE AUTO TNTC /HPF (0-3)
[2022-08-13] MEDS ORDERED: PROCHLORPERAZINE 10MG 2ML VIAL IV PRN (14:00)
[2022-08-13] MEDS ORDERED: DEXTROSE 50% 50ML SYRINGE IV PRN (14:00)
[2022-08-13] MEDS ORDERED: GLUCOSE 4GM CHEW TABLET PO PRN (14:00)
[2022-08-13] MEDS ORDERED: GLUCAGON INJ 1MG VIAL SC PRN (14:00)
[2022-08-13] MEDS ORDERED: ACETAMINOPHEN TAB 650MG DOSE (2X325MG) PO PRN (14:05)
[2022-08-13] MEDS ORDERED: HOME MED LIST COMPLETE! XX SCH (14:45)
[2022-08-13 15:07] LABS: ALKALINE PHOSPHATASE 100 U/L (46-116); ALT/SGPT < 9 U/L (7.0-40); AST/SGOT 10 U/L (<34); BILIRUBIN,TOTAL 0.6 MG/DL (0.3-1.2); BLOOD UREA NITROGEN 69 MG/DL (9-23); CALCIUM LEVEL 7.2 MG/DL (8.3-10.6); CARBON DIOXIDE LEVEL 22 MMOL/L (20-31); CHLORIDE LEVEL 107 MMOL/L (98-107); CREATININE FOR GFR 4.01 MG/DL (0.55-1.30); GLUCOSE, FASTING 129 MG/DL (74-106); MAGNESIUM LEVEL 1.9 MG/DL (1.8-2.4); POTASSIUM SERUM 5.1 MMOL/L (3.5-5.1); SODIUM LEVEL 136 MMOL/L (136-145); TOTAL PROTEIN 6.6 G/DL (5.7-8.2)
[2022-08-13] MEDS: NS 1,000 ML IV SCH (15:13)
[2022-08-13 16:30] VITALS: BP 116/70
[2022-08-13 19:16] LABS: CREATININE FOR GFR 4.08 MG/DL (0.55-1.30); GLOMERULAR FILTRATION RATE 11.7 (>45); POTASSIUM SERUM 4.5 MMOL/L (3.5-5.1)
[2022-08-13] MEDS: HEPARIN SOD (PORCINE) 5000UNITS/ML 1ML VIAL/SYRINGE SC SCH (21:04)
[2022-08-13 21:19] VITALS: BP 163/93
[2022-08-14] MEDS: NS 1,000 ML IV SCH ×2 (04:09→17:52)
[2022-08-14] MEDS: HEPARIN SOD (PORCINE) 5000UNITS/ML 1ML VIAL/SYRINGE SC SCH ×3 (05:36→23:02)
[2022-08-14 06:05] LABS: HEMATOCRIT 28.5 % (36.0-47.0); HEMOGLOBIN 9.1 g/dl (12.0-15.5); MEAN CORPUSCULAR HEMOGLOBIN 29.4 pg (27.0-33.0); MEAN CORPUSCULAR HGB CONC 31.9 g/dl (32.0-36.5); MEAN CORPUSCULAR VOLUME 92.2 fl (80.0-96.0); PLATELET COUNT, AUTOMATED 249 10^3/uL (150-450); RED BLOOD COUNT 3.09 10^6/uL (4.00-5.40); WHITE BLOOD COUNT 3.9 10^3/uL (4.0-10.0)
[2022-08-14 06:32] VITALS: BP 161/89
[2022-08-14 06:41] LABS: CALCIUM LEVEL 7.2 MG/DL (8.3-10.6); CREATININE FOR GFR 4.21 MG/DL (0.55-1.30); GLOMERULAR FILTRATION RATE 11.3 (>45); POTASSIUM SERUM 4.8 MMOL/L (3.5-5.1)
[2022-08-14] MEDS ORDERED: cefTRIAXone SOD 1 GM in D5W MINI-BAG PLUS 50 ML IV SCH (13:00)
[2022-08-14 14:00] VITALS: BP 139/68
[2022-08-14 22:00] VITALS: BP 139/68
[2022-08-15 05:35] VITALS: BP 149/80
[2022-08-15] MEDS: HEPARIN SOD (PORCINE) 5000UNITS/ML 1ML VIAL/SYRINGE SC SCH ×2 (05:53→13:18)
[2022-08-15] MEDS: NS 1,000 ML IV SCH ×2 (06:07→20:23)
[2022-08-15 06:47] LABS: BASO % 0.8 % (0.0-1.0); EOS # 0.1 10^3/uL (0.0-0.5); EOS % 1.6 % (0.0-3.0); HEMATOCRIT 29.3 % (36.0-47.0); HEMOGLOBIN 9.5 g/dl (12.0-15.5); LYMPH # 1.2 10^3/uL (1.5-5.0); MEAN CORPUSCULAR HEMOGLOBIN 29.9 pg (27.0-33.0); MEAN CORPUSCULAR HGB CONC 32.4 g/dl (32.0-36.5); MEAN CORPUSCULAR VOLUME 92.1 fl (80.0-96.0); MONO # 0.5 10^3/uL (0.0-0.8); MONO % 12.9 % (2.0-8.0); NEUTROPHILS # 1.9 10^3/uL (1.5-8.5); NEUTROPHILS % 51.2 % (36.0-66.0); PLATELET COUNT, AUTOMATED 274 10^3/uL (150-450); RED BLOOD COUNT 3.18 10^6/uL (4.00-5.40); WHITE BLOOD COUNT 3.7 10^3/uL (4.0-10.0)
[2022-08-15 07:17] LABS: CREATININE FOR GFR 4.24 MG/DL (0.55-1.30); GLOMERULAR FILTRATION RATE 11.2 (>45); POTASSIUM SERUM 4.8 MMOL/L (3.5-5.1)
[2022-08-15 07:48] VITALS: BP 138/90
[2022-08-15 08:17] LABS: C REACTIVE PROTEIN QUANTITATIV 9.2 MG/DL (<1.0)
[2022-08-15] MEDS: SODIUM BICARBONATE 325 MG TAB PO SCH ×2 (11:33→20:23)
[2022-08-15 14:42] VITALS: BP 151/79
[2022-08-15 22:00] VITALS: BP 165/77
[2022-08-15] MEDS: LEVEMIR (INSULIN DETEMIR) 1 UNITS/0.01ML SC SCH (22:05)
[2022-08-15] MEDS: INSULIN LISPRO (NovoLOG) PER UNIT SC SCH (22:06)
[2022-08-16] VITALS (8 sets, daily range): BP systolic 146–157; BP diastolic 74–83
[2022-08-16] MEDS: INSULIN LISPRO (NovoLOG) PER UNIT SC SCH ×8 (02:00→22:00)
[2022-08-16 07:44] LABS: BASO % 0.9 % (0.0-1.0); EOS # 0.1 10^3/uL (0.0-0.5); EOS % 2.9 % (0.0-3.0); HEMATOCRIT 29.7 % (36.0-47.0); HEMOGLOBIN 9.6 g/dl (12.0-15.5); LYMPH # 0.7 10^3/uL (1.5-5.0); LYMPH % 19.3 % (24.0-44.0); MEAN CORPUSCULAR HEMOGLOBIN 29.4 pg (27.0-33.0); MEAN CORPUSCULAR HGB CONC 32.3 g/dl (32.0-36.5); MEAN CORPUSCULAR VOLUME 91.1 fl (80.0-96.0); MONO # 0.4 10^3/uL (0.0-0.8); MONO % 10.9 % (2.0-8.0); NEUTROPHILS # 2.3 10^3/uL (1.5-8.5); NEUTROPHILS % 65.4 % (36.0-66.0); PLATELET COUNT, AUTOMATED 284 10^3/uL (150-450); RED BLOOD COUNT 3.26 10^6/uL (4.00-5.40); WHITE BLOOD COUNT 3.5 10^3/uL (4.0-10.0)
[2022-08-16] MEDS ORDERED: fentaNYL 100 MCG/2 ML INJECTION As Ordered ONE (07:47)
[2022-08-16] MEDS ORDERED: propofoL 200 MG/20 ML VIAL As Ordered ONE ×2 (07:47→11:04)
[2022-08-16] MEDS ORDERED: LIDOCAINE 2% 100MG/5ML SDV (FOR ANES.) As Ordered ONE (07:47)
[2022-08-16] MEDS ORDERED: MIDAZOLAM INJ 2MG/2ML VIAL As Ordered ONE (07:47)
[2022-08-16 08:09] LABS: CALCIUM LEVEL 7.5 MG/DL (8.3-10.6); CREATININE FOR GFR 4.05 MG/DL (0.55-1.30); GLOMERULAR FILTRATION RATE 11.8 (>45); POTASSIUM SERUM 5.5 MMOL/L (3.5-5.1)
[2022-08-16] MEDS ORDERED: LIDOCAINE 2% MDV 20ML VIAL As Ordered ONE (08:22)
[2022-08-16] MEDS ORDERED: BUPIVACAINE HCL 0.5% 30ML VIAL As Ordered ONE (08:22)
[2022-08-16] MEDS ORDERED: TOBRAMYCIN SULF 1.2GM VIAL As Ordered ONE ×2 (08:38→09:23)
[2022-08-16 09:14] LABS: FERRITIN 104.6 NG/ML (7.3-270.7)
[2022-08-16 09:47] LABS: FOLATE 6.63 NG/ML (>5.4)
[2022-08-16] MEDS ORDERED: fentaNYL 100 MCG/2 ML INJECTION IV PRN (10:50)
[2022-08-16] MEDS ORDERED: ONDANSETRON 4MG 2ML VIAL IV PRN (10:50)
[2022-08-16] MEDS ORDERED: LR 1,000 ML IV SCH (10:50)
[2022-08-16] MEDS ORDERED: GLYCOPYRROLATE INJ 0.2 MG/ML 2 ML VIAL As Ordered ONE (10:59)
[2022-08-16] MEDS: LEVEMIR (INSULIN DETEMIR) 1 UNITS/0.01ML SC SCH ×2 (12:53→22:04)
[2022-08-16] MEDS: SODIUM BICARBONATE 325 MG TAB PO SCH ×2 (12:53→20:40)
[2022-08-16] MEDS: NS 1,000 ML IV SCH (12:57)
[2022-08-16] MEDS: HEPARIN SOD (PORCINE) 5000UNITS/ML 1ML VIAL/SYRINGE SC SCH ×2 (14:00→20:34)
[2022-08-16] MEDS ORDERED: INSULIN LISPRO (NovoLOG) PER UNIT SC STA (16:13)
[2022-08-16] MEDS: CYANOCOBALAMIN 500 MCG TAB PO SCH (16:20)
[2022-08-16 17:09] LABS: CALCIUM LEVEL 7.2 MG/DL (8.3-10.6); CREATININE FOR GFR 4.01 MG/DL (0.55-1.30); POTASSIUM SERUM 5.4 MMOL/L (3.5-5.1)
[2022-08-16] MEDS ORDERED: INSULIN LISPRO (NovoLOG) PER UNIT SC SCH (17:30)
[2022-08-16 17:45] LABS: EOS # 0.1 10^3/uL (0.0-0.5); EOS % 1.7 % (0.0-3.0); HEMATOCRIT 27.6 % (36.0-47.0); HEMOGLOBIN 8.9 g/dl (12.0-15.5); LYMPH # 0.7 10^3/uL (1.5-5.0); LYMPH % 24.9 % (24.0-44.0); MEAN CORPUSCULAR HEMOGLOBIN 29.4 pg (27.0-33.0); MEAN CORPUSCULAR HGB CONC 32.2 g/dl (32.0-36.5); MEAN CORPUSCULAR VOLUME 91.1 fl (80.0-96.0); MONO # 0.4 10^3/uL (0.0-0.8); MONO % 11.8 % (2.0-8.0); NEUTROPHILS # 1.8 10^3/uL (1.5-8.5); NEUTROPHILS % 59.9 % (36.0-66.0); PLATELET COUNT, AUTOMATED 248 10^3/uL (150-450); RED BLOOD COUNT 3.03 10^6/uL (4.00-5.40)
[2022-08-16 17:57] LABS: INR 1.34; PROTHROMBIN TIME 16.8 SECONDS (12.5-14.5)
[2022-08-16 17:59] LABS: PARTIAL THROMBOPLASTIN TIME 52.5 SECONDS (24.8-34.2)
[2022-08-16] MEDS ORDERED: VANCOMYCIN HCL 1,000 MG, VIAL MATE ADAPTER 1 EACH in D5W 250 ML IV ONE (18:00)
[2022-08-16 18:14] LABS: COLLAGEN EPINEPHRINE 104 SECONDS (74-162)
[2022-08-16] MEDS: AZTREONAM 1 GM in D5W MINI-BAG PLUS 50 ML IV SCH (20:40)
[2022-08-17] MEDS: INSULIN LISPRO (NovoLOG) PER UNIT SC SCH ×9 (01:40→22:00)
[2022-08-17 02:00] VITALS: BP 147/73
[2022-08-17] MEDS: NS 1,000 ML IV SCH (02:00)
[2022-08-17] MEDS: HEPARIN SOD (PORCINE) 5000UNITS/ML 1ML VIAL/SYRINGE SC SCH ×3 (04:24→22:12)
[2022-08-17 06:00] VITALS: BP 148/74
[2022-08-17 06:56] LABS: BASO % 1.3 % (0.0-1.0); EOS # 0.1 10^3/uL (0.0-0.5); EOS % 4.2 % (0.0-3.0); HEMATOCRIT 26.1 % (36.0-47.0); HEMOGLOBIN 8.4 g/dl (12.0-15.5); LYMPH # 0.9 10^3/uL (1.5-5.0); LYMPH % 28.9 % (24.0-44.0); MEAN CORPUSCULAR HEMOGLOBIN 29.6 pg (27.0-33.0); MEAN CORPUSCULAR HGB CONC 32.2 g/dl (32.0-36.5); MEAN CORPUSCULAR VOLUME 91.9 fl (80.0-96.0); MONO # 0.4 10^3/uL (0.0-0.8); MONO % 11.3 % (2.0-8.0); NEUTROPHILS # 1.7 10^3/uL (1.5-8.5); NEUTROPHILS % 53.3 % (36.0-66.0); PLATELET COUNT, AUTOMATED 255 10^3/uL (150-450); RED BLOOD COUNT 2.84 10^6/uL (4.00-5.40); WHITE BLOOD COUNT 3.1 10^3/uL (4.0-10.0)
[2022-08-17 07:30] LABS: CALCIUM LEVEL 7.2 MG/DL (8.3-10.6); CREATININE FOR GFR 3.99 MG/DL (0.55-1.30)
[2022-08-17 08:01] LABS: POTASSIUM SERUM 6.5 MMOL/L (3.5-5.1)
[2022-08-17] MEDS: AZTREONAM 1 GM in D5W MINI-BAG PLUS 50 ML IV SCH ×2 (08:19→20:06)
[2022-08-17] MEDS: CYANOCOBALAMIN 500 MCG TAB PO SCH (08:21)
[2022-08-17] MEDS: LEVEMIR (INSULIN DETEMIR) 1 UNITS/0.01ML SC SCH ×2 (08:21→22:11)
[2022-08-17] MEDS: SODIUM BICARBONATE 325 MG TAB PO SCH ×2 (08:21→22:13)
[2022-08-17] MEDS ORDERED: ALBUTEROL SULFATE 2.5MG/0.5ML INH NEB SOLN NEB ONE (08:30)
[2022-08-17] MEDS ORDERED: PATIROMER SORBITEX CALCIUM 8.4 GM POWDER PACKET (VELTASSA) PO ONE (08:30)
[2022-08-17] MEDS ORDERED: CALCIUM GLUCONATE 1,000 MG in D5W MINI-BAG PLUS 100 ML IV ONE (08:30)
[2022-08-17 09:00] LABS: CREATININE FOR GFR 3.94 MG/DL (0.55-1.30); GLOMERULAR FILTRATION RATE 12.2 (>45); POTASSIUM SERUM 5.8 MMOL/L (3.5-5.1)
[2022-08-17] MEDS ORDERED: VANCOMYCIN HCL 750 MG, VIAL MATE ADAPTER 1 EACH in D5W 250 ML IV SCH (09:00)
[2022-08-17 10:00] VITALS: BP 142/73
[2022-08-17] MEDS: SILVER SULFADIAZINE 1% CR 50 GM JAR TOP SCH ×2 (12:17→22:15)
[2022-08-17 13:43] LABS: APPEARANCE, URINE CLOUDY (CLEAR); BACTERIA, URINE AUTO 2+ (NEGATIVE); BILIRUBIN, URINE AUTO NEGATIVE (NEGATIVE); BLOOD, URINE BLOOD 3+ (NEGATIVE); COLOR, URINE YELLOW (YELLOW); GLUCOSE, URINE (UA) AUTO 1+ mg/dL (NEGATIVE); GRANULAR CAST, URINE AUTO 6 /LPF; KETONE, URINE AUTO NEGATIVE (NEGATIVE); LEUKOCYTE ESTERASE, URINE AUTO 3+ (NEGATIVE); MUCUS, URINE SMALL (NEGATIVE); NITRITE, URINE AUTO NEGATIVE (NEGATIVE); PROTEIN, URINE AUTO 3+ mg/dL (NEGATIVE); RBC, URINE AUTO TNTC /HPF (0-3); SPECIFIC GRAVITY URINE AUTO 1.013 (1.002-1.035); SQUAMOUS EPITHELIAL CELL UR AU 2 /HPF (0-6); UROBILINOGEN, URINE AUTO 0.2 mg/dL (0.0-2.0); WBC, URINE AUTO TNTC /HPF (0-3)
[2022-08-17 13:58] LABS: CREATININE,RANDOM URINE 180.2 MG/DL
[2022-08-17 14:00] VITALS: BP 133/77
[2022-08-17 14:01] LABS: TOTAL PROTEIN,RANDOM URINE 372.7 MG/DL (0.0-14.0)
[2022-08-17] MEDS: SODIUM BICARBONATE 150 MEQ in STERILE WATER LITER BAG 1,000 ML IV SCH (15:03)
[2022-08-17 22:00] VITALS: BP 135/75
[2022-08-18] MEDS: INSULIN LISPRO (NovoLOG) PER UNIT SC SCH ×9 (02:20→22:00)
[2022-08-18] MEDS: SODIUM BICARBONATE 150 MEQ in STERILE WATER LITER BAG 1,000 ML IV SCH ×2 (02:20→15:22)
[2022-08-18 06:00] VITALS: BP 148/77
[2022-08-18] MEDS: HEPARIN SOD (PORCINE) 5000UNITS/ML 1ML VIAL/SYRINGE SC SCH ×3 (07:11→20:15)
[2022-08-18 07:14] LABS: BASO % 0.8 % (0.0-1.0); EOS # 0.1 10^3/uL (0.0-0.5); HEMATOCRIT 22.3 % (36.0-47.0); HEMOGLOBIN 7.4 g/dl (12.0-15.5); LYMPH # 0.9 10^3/uL (1.5-5.0); LYMPH % 36.1 % (24.0-44.0); MEAN CORPUSCULAR HEMOGLOBIN 30.2 pg (27.0-33.0); MEAN CORPUSCULAR HGB CONC 33.2 g/dl (32.0-36.5); MONO # 0.3 10^3/uL (0.0-0.8); MONO % 11.5 % (2.0-8.0); NEUTROPHILS # 1.2 10^3/uL (1.5-8.5); NEUTROPHILS % 47.2 % (36.0-66.0); PLATELET COUNT, AUTOMATED 208 10^3/uL (150-450); RED BLOOD COUNT 2.45 10^6/uL (4.00-5.40); WHITE BLOOD COUNT 2.5 10^3/uL (4.0-10.0)
[2022-08-18 07:36] LABS: VANCOMYCIN RANDOM 17.4 UG/ML
[2022-08-18 07:37] LABS: CALCIUM LEVEL 7.2 MG/DL (8.3-10.6); CREATININE FOR GFR 3.46 MG/DL (0.55-1.30); GLOMERULAR FILTRATION RATE 14.2 (>45); POTASSIUM SERUM 4.7 MMOL/L (3.5-5.1)
[2022-08-18] MEDS: SODIUM BICARBONATE 325 MG TAB PO SCH ×2 (09:31→22:22)
[2022-08-18] MEDS: CYANOCOBALAMIN 500 MCG TAB PO SCH (09:31)
[2022-08-18] MEDS: AZTREONAM 1 GM in D5W MINI-BAG PLUS 50 ML IV SCH ×2 (09:33→20:43)
[2022-08-18] MEDS: LEVEMIR (INSULIN DETEMIR) 1 UNITS/0.01ML SC SCH ×2 (09:34→22:23)
[2022-08-18] MEDS ORDERED: VANCOMYCIN HCL 500 MG in D5W MINI-BAG PLUS 100 ML IV SCH (11:00)
[2022-08-18] MEDS: SILVER SULFADIAZINE 1% CR 50 GM JAR TOP SCH ×2 (11:58→22:25)
[2022-08-18] MEDS ORDERED: FERRIC CARBOXYMALTOSE INJ 750 MG, VIAL MATE ADAPTER 1 EACH in NS 250 ML IV ONE (12:00)
[2022-08-18 14:00] VITALS: BP 160/80
[2022-08-18 17:22] VITALS: BP 156/73
[2022-08-18 20:29] VITALS: BP 150/76
[2022-08-18 22:00] VITALS: BP 150/76
[2022-08-19] MEDS: SODIUM BICARBONATE 150 MEQ in STERILE WATER LITER BAG 1,000 ML IV SCH (00:30)
[2022-08-19] MEDS: INSULIN LISPRO (NovoLOG) PER UNIT SC SCH ×9 (01:00→22:00)
[2022-08-19 05:19] VITALS: BP 149/76
[2022-08-19] MEDS: HEPARIN SOD (PORCINE) 5000UNITS/ML 1ML VIAL/SYRINGE SC SCH ×3 (05:31→22:28)
[2022-08-19 06:00] VITALS: BP 149/76
[2022-08-19 06:23] LABS: BASO % 1.4 % (0.0-1.0); EOS # 0.1 10^3/uL (0.0-0.5); HEMATOCRIT 21.9 % (36.0-47.0); HEMOGLOBIN 7.4 g/dl (12.0-15.5); LYMPH # 0.8 10^3/uL (1.5-5.0); LYMPH % 34.1 % (24.0-44.0); MEAN CORPUSCULAR HEMOGLOBIN 29.8 pg (27.0-33.0); MEAN CORPUSCULAR HGB CONC 33.8 g/dl (32.0-36.5); MEAN CORPUSCULAR VOLUME 88.3 fl (80.0-96.0); MONO # 0.3 10^3/uL (0.0-0.8); MONO % 11.8 % (2.0-8.0); NEUTROPHILS % 47.2 % (36.0-66.0); PLATELET COUNT, AUTOMATED 207 10^3/uL (150-450); RED BLOOD COUNT 2.48 10^6/uL (4.00-5.40); WHITE BLOOD COUNT 2.2 10^3/uL (4.0-10.0)
[2022-08-19 06:50] LABS: CREATININE FOR GFR 3.1 MG/DL (0.55-1.30); GLOMERULAR FILTRATION RATE 16.1 (>45); POTASSIUM SERUM 4.3 MMOL/L (3.5-5.1)
[2022-08-19] MEDS: AZTREONAM 1 GM in D5W MINI-BAG PLUS 50 ML IV SCH ×2 (08:49→22:30)
[2022-08-19 09:00] VITALS: BP 152/76
[2022-08-19] MEDS: CYANOCOBALAMIN 500 MCG TAB PO SCH (09:50)
[2022-08-19] MEDS: LEVEMIR (INSULIN DETEMIR) 1 UNITS/0.01ML SC SCH ×2 (09:50→22:27)
[2022-08-19] MEDS: SODIUM BICARBONATE 325 MG TAB PO SCH (09:51)
[2022-08-19] MEDS: SILVER SULFADIAZINE 1% CR 50 GM JAR TOP SCH ×2 (10:05→22:31)
[2022-08-19 14:00] VITALS: BP 150/76
[2022-08-19 21:50] VITALS: BP 149/76
[2022-08-20] MEDS: INSULIN LISPRO (NovoLOG) PER UNIT SC SCH ×7 (02:00→19:06)
[2022-08-20 06:00] VITALS: BP 147/75
[2022-08-20] MEDS: HEPARIN SOD (PORCINE) 5000UNITS/ML 1ML VIAL/SYRINGE SC SCH ×2 (06:18→13:09)
[2022-08-20 06:45] LABS: BASO % 0.8 % (0.0-1.0); EOS # 0.1 10^3/uL (0.0-0.5); EOS % 5.9 % (0.0-3.0); HEMOGLOBIN 7.7 g/dl (12.0-15.5); LYMPH # 0.7 10^3/uL (1.5-5.0); LYMPH % 31.1 % (24.0-44.0); MEAN CORPUSCULAR HEMOGLOBIN 29.7 pg (27.0-33.0); MEAN CORPUSCULAR HGB CONC 33.5 g/dl (32.0-36.5); MEAN CORPUSCULAR VOLUME 88.8 fl (80.0-96.0); MONO # 0.3 10^3/uL (0.0-0.8); NEUTROPHILS # 1.2 10^3/uL (1.5-8.5); NEUTROPHILS % 48.4 % (36.0-66.0); PLATELET COUNT, AUTOMATED 193 10^3/uL (150-450); RED BLOOD COUNT 2.59 10^6/uL (4.00-5.40); WHITE BLOOD COUNT 2.4 10^3/uL (4.0-10.0)
[2022-08-20 07:50] LABS: CALCIUM LEVEL 7.2 MG/DL (8.3-10.6); CREATININE FOR GFR 2.83 MG/DL (0.55-1.30); GLOMERULAR FILTRATION RATE 17.9 (>45); POTASSIUM SERUM 4.3 MMOL/L (3.5-5.1); VANCOMYCIN RANDOM 15.8 UG/ML
[2022-08-20] MEDS ORDERED: VANCOMYCIN INTERMITTENT/PULSE DOSING BY CLINICAL PHARMACIST PER DOSING PROTOCOL XX SCH (08:00)
[2022-08-20 08:38] VITALS: BP 138/76
[2022-08-20] MEDS: AZTREONAM 1 GM in D5W MINI-BAG PLUS 50 ML IV SCH ×2 (08:39→20:50)
[2022-08-20] MEDS: CYANOCOBALAMIN 500 MCG TAB PO SCH (08:39)
[2022-08-20] MEDS: LEVEMIR (INSULIN DETEMIR) 1 UNITS/0.01ML SC SCH ×2 (08:40→20:51)
[2022-08-20] MEDS: SILVER SULFADIAZINE 1% CR 50 GM JAR TOP SCH ×3 (08:41→20:54)
[2022-08-20] MEDS ORDERED: VANCOMYCIN HCL 500 MG in D5W MINI-BAG PLUS 100 ML IV ONE (09:00)
[2022-08-20 14:00] VITALS: BP 132/70
[2022-08-20] MEDS ORDERED: INSULIN LISPRO (NovoLOG) PER UNIT SC SCH ×2 (17:30→21:00)
[2022-08-20 20:40] VITALS: BP 133/70
[2022-08-21 05:43] VITALS: BP 150/78
[2022-08-21] MEDS: HEPARIN SOD (PORCINE) 5000UNITS/ML 1ML VIAL/SYRINGE SC SCH ×2 (05:52→18:18)
[2022-08-21 06:45] LABS: BASO % 0.9 % (0.0-1.0); EOS # 0.1 10^3/uL (0.0-0.5); EOS % 6.6 % (0.0-3.0); HEMATOCRIT 23.4 % (36.0-47.0); HEMOGLOBIN 7.6 g/dl (12.0-15.5); LYMPH # 0.7 10^3/uL (1.5-5.0); LYMPH % 33.2 % (24.0-44.0); MEAN CORPUSCULAR HEMOGLOBIN 29.2 pg (27.0-33.0); MEAN CORPUSCULAR HGB CONC 32.5 g/dl (32.0-36.5); MONO # 0.2 10^3/uL (0.0-0.8); MONO % 10.9 % (2.0-8.0); NEUTROPHILS % 47.9 % (36.0-66.0); PLATELET COUNT, AUTOMATED 192 10^3/uL (150-450); WHITE BLOOD COUNT 2.1 10^3/uL (4.0-10.0)
[2022-08-21 07:21] LABS: VANCOMYCIN RANDOM 18.6 UG/ML
[2022-08-21 07:24] LABS: CALCIUM LEVEL 7.5 MG/DL (8.3-10.6); CREATININE FOR GFR 2.5 MG/DL (0.55-1.30); GLOMERULAR FILTRATION RATE 20.6 (>45); POTASSIUM SERUM 4.4 MMOL/L (3.5-5.1)
[2022-08-21] MEDS: INSULIN LISPRO (NovoLOG) PER UNIT SC SCH ×6 (07:30→17:30)
[2022-08-21] MEDS: AZTREONAM 1 GM in D5W MINI-BAG PLUS 50 ML IV SCH ×2 (08:24→19:37)
[2022-08-21] MEDS: CYANOCOBALAMIN 500 MCG TAB PO SCH (08:24)
[2022-08-21] MEDS: LEVEMIR (INSULIN DETEMIR) 1 UNITS/0.01ML SC SCH (08:25)
[2022-08-21] MEDS: SILVER SULFADIAZINE 1% CR 50 GM JAR TOP SCH (08:26)
[2022-08-21] MEDS ORDERED: VANCOMYCIN HCL 500 MG in D5W MINI-BAG PLUS 100 ML IV ONE (09:00)
[2022-08-21] MEDS ORDERED: AMLO1TAB25 PO (09:48)
[2022-08-21] MEDS ORDERED: SILV50CR TOP (09:48)
[2022-08-21] MEDS ORDERED: CIPR500T39 PO (11:36)
[2022-08-21 14:00] VITALS: BP 143/71
[2022-08-21 20:55] VITALS: BP 139/68
[2022-08-22] MEDS: HEPARIN SOD (PORCINE) 5000UNITS/ML 1ML VIAL/SYRINGE SC SCH (05:03)
[2022-08-22 05:09] VITALS: BP 137/73
[2022-08-22] MEDS ORDERED: CIPROFLOXACIN 500MG TABLET PO SCH (06:00)
[2022-08-22 07:32] LABS: BASO % 1.3 % (0.0-1.0); EOS # 0.2 10^3/uL (0.0-0.5); HEMATOCRIT 21.9 % (36.0-47.0); HEMOGLOBIN 7.1 g/dl (12.0-15.5); LYMPH # 0.7 10^3/uL (1.5-5.0); MEAN CORPUSCULAR HEMOGLOBIN 29.3 pg (27.0-33.0); MEAN CORPUSCULAR HGB CONC 32.4 g/dl (32.0-36.5); MEAN CORPUSCULAR VOLUME 90.5 fl (80.0-96.0); MONO # 0.3 10^3/uL (0.0-0.8); MONO % 11.6 % (2.0-8.0); NEUTROPHILS % 46.2 % (36.0-66.0); PLATELET COUNT, AUTOMATED 160 10^3/uL (150-450); RED BLOOD COUNT 2.42 10^6/uL (4.00-5.40); WHITE BLOOD COUNT 2.3 10^3/uL (4.0-10.0)
[2022-08-22 07:58] LABS: CALCIUM LEVEL 7.5 MG/DL (8.3-10.6); CREATININE FOR GFR 2.34 MG/DL (0.55-1.30); GLOMERULAR FILTRATION RATE 22.3 (>45); POTASSIUM SERUM 4.2 MMOL/L (3.5-5.1)
[2022-08-22] MEDS: CYANOCOBALAMIN 500 MCG TAB PO SCH (08:14)
[2022-08-22] MEDS: AZTREONAM 1 GM in D5W MINI-BAG PLUS 50 ML IV SCH (08:14)
[2022-08-22 08:17] VITALS: BP 136/70
[2022-08-22] MEDS ORDERED: METR-265 PO (09:42)
[2022-08-22] MEDS: metroNIDAZOLE (FLAGYL) 500MG TABLET PO SCH ×2 (10:20→14:21)
[2022-08-22 11:32] LABS: HEMATOCRIT 22.3 % (36.0-47.0); HEMOGLOBIN 7.4 g/dl (12.0-15.5)
== END 2022-08-22 16:13 | disposition home health service (06) | DRG 617 ==
LOC: M ED 10:28 → M ED INP 13:25 → M MS5PR 16:40 → M MSPAV 08-17 13:50
PROVIDERS: ADMIT Internal Medicine; ATTEND Internal Medicine
PROC: 0Y6P0Z0 Detachment at Right 1st Toe, Complete, Open Approach (ICD-10-PCS; principal; 2022-08-16 08:00)
PROC: 0JBR0ZZ Excision of Left Foot Subcutaneous Tissue and Fascia, Open Approach (ICD-10-PCS; 2022-08-16 08:00)
DX: E10.69 Type 1 diabetes mellitus with other specified complication (principal); M86.171 Other acute osteomyelitis, right ankle and foot; N39.0 Urinary tract infection, site not specified; D62 Acute posthemorrhagic anemia; E87.1 Hypo-osmolality and hyponatremia; E87.20 Acidosis, unspecified; M86.172 Other acute osteomyelitis, left ankle and foot; I16.0 Hypertensive urgency; N17.9 Acute kidney failure, unspecified; I12.9 Hypertensive chronic kidney disease with stage 1 through stage 4 chronic kidney disease, or unspecified chronic kidney disease; R11.2 Nausea with vomiting, unspecified; E87.5 Hyperkalemia; R82.71 Bacteriuria; E10.22 Type 1 diabetes mellitus with diabetic chronic kidney disease; E10.649 Type 1 diabetes mellitus with hypoglycemia without coma; L97.529 Non-pressure chronic ulcer of other part of left foot with unspecified severity; N18.30 Chronic kidney disease, stage 3 unspecified; R26.89 Other abnormalities of gait and mobility; Z88.0 Allergy status to penicillin; Z91.018 Allergy to other foods; Z91.012 Allergy to eggs; Z79.899 Other long term (current) drug therapy; L97.519 Non-pressure chronic ulcer of other part of right foot with unspecified severity

== ENCOUNTER 2022-08-23 01:02 | Inpatient (IN) | payer MEDICARE, OTHER ==
[2022-08-23] VITALS (12 sets, daily range): BP systolic 120–158; BP diastolic 56–88
[~2022-08-23] VITALS: Ht 170.2 cm; Wt 96.1 kg
[~2022-08-23 01:02] MED LIST changes: +AMLO1TAB25 PO; +CIPR500T39 PO; +SILV50CR TOP; -amLODIPine 5 MG TAB PO SCH
[2022-08-23] MEDS ORDERED: LIDOCAINE 2% MDV 20ML VIAL As Ordered ONE (01:24)
[2022-08-23 01:43] LABS: BASO % 1.1 % (0.0-1.0); EOS # 0.2 10^3/uL (0.0-0.5); EOS % 5.9 % (0.0-3.0); LYMPH # 0.8 10^3/uL (1.5-5.0); LYMPH % 29.9 % (24.0-44.0); MEAN CORPUSCULAR HEMOGLOBIN 28.6 pg (27.0-33.0); MEAN CORPUSCULAR HGB CONC 31.1 g/dl (32.0-36.5); MEAN CORPUSCULAR VOLUME 91.8 fl (80.0-96.0); MONO # 0.3 10^3/uL (0.0-0.8); MONO % 10.3 % (2.0-8.0); NEUTROPHILS # 1.4 10^3/uL (1.5-8.5); NEUTROPHILS % 52.4 % (36.0-66.0); PLATELET COUNT, AUTOMATED 184 10^3/uL (150-450); RED BLOOD COUNT 1.96 10^6/uL (4.00-5.40); WHITE BLOOD COUNT 2.7 10^3/uL (4.0-10.0)
[2022-08-23 01:54] LABS: HEMOGLOBIN 5.6 g/dl (12.0-15.5)
[2022-08-23 02:14] LABS: ALKALINE PHOSPHATASE 83 U/L (46-116); ALT/SGPT 55 U/L (7.0-40); AST/SGOT 93 U/L (<34); BLOOD UREA NITROGEN 82 MG/DL (9-23); CALCIUM LEVEL 7.4 MG/DL (8.3-10.6); CARBON DIOXIDE LEVEL 26 MMOL/L (20-31); CHLORIDE LEVEL 102 MMOL/L (98-107); CREATININE FOR GFR 2.59 MG/DL (0.55-1.30); GLOMERULAR FILTRATION RATE 19.8 (>45); GLUCOSE, FASTING 142 MG/DL (74-106); PHOSPHORUS LEVEL 4.4 MG/DL (2.4-5.1); POTASSIUM SERUM 4.6 MMOL/L (3.5-5.1); SODIUM LEVEL 133 MMOL/L (136-145)
[2022-08-23 02:14] LABS: ABG BASE EXCESS 0.7 (-2.0-2.0); ABG HCO3 24.9 MEQ/L (22.0-26.0); ABG O2 SATURATION 98.2 % (95.0-99.0); ABG PARTIAL PRESSURE CO2 37.5 mmHg (35.0-45.0); ABG PARTIAL PRESSURE O2 118.9 mmHg (75.0-100.0); ABG STANDARD HCO3 25.1 MEQ/L (22.0-26.0)
[2022-08-23 02:15] LABS: ALBUMIN 1.5 G/DL (3.2-5.2); BILIRUBIN,DIRECT 0.1 MG/DL (<0.4); BILIRUBIN,TOTAL 0.2 MG/DL (0.3-1.2); ETHYL ALCOHOL (ETHANOL) < 0.003 % (0.000-0.010); TOTAL PROTEIN 4.9 G/DL (5.7-8.2)
[2022-08-23] MEDS ORDERED: ACETAMINOPHEN TAB 650MG DOSE (2X325MG) PO PRN (03:40)
[2022-08-23] MEDS ORDERED: GLUCAGON INJ 1MG VIAL SC PRN (03:40)
[2022-08-23] MEDS ORDERED: GLUCOSE 4GM CHEW TABLET PO PRN (03:40)
[2022-08-23 04:25] LABS: RSV AMPLIFICATION NEGATIVE (NEGATIVE)
[2022-08-23] MEDS ORDERED: metroNIDAZOLE (FLAGYL) 500MG TABLET PO ONE (05:00)
[2022-08-23] MEDS: CIPROFLOXACIN 500MG TABLET PO SCH (05:14)
[2022-08-23 11:58] LABS: BASO % 0.7 % (0.0-1.0); EOS # 0.1 10^3/uL (0.0-0.5); EOS % 3.3 % (0.0-3.0); HEMATOCRIT 21.4 % (36.0-47.0); HEMOGLOBIN 7.2 g/dl (12.0-15.5); LYMPH # 0.6 10^3/uL (1.5-5.0); LYMPH % 22.9 % (24.0-44.0); MEAN CORPUSCULAR HEMOGLOBIN 29.8 pg (27.0-33.0); MEAN CORPUSCULAR HGB CONC 33.6 g/dl (32.0-36.5); MEAN CORPUSCULAR VOLUME 88.4 fl (80.0-96.0); MONO # 0.3 10^3/uL (0.0-0.8); MONO % 10.9 % (2.0-8.0); NEUTROPHILS # 1.7 10^3/uL (1.5-8.5); NEUTROPHILS % 61.1 % (36.0-66.0); PLATELET COUNT, AUTOMATED 136 10^3/uL (150-450); RED BLOOD COUNT 2.42 10^6/uL (4.00-5.40); WHITE BLOOD COUNT 2.8 10^3/uL (4.0-10.0)
[2022-08-23 12:31] LABS: CALCIUM LEVEL 7.4 MG/DL (8.3-10.6); CREATININE FOR GFR 2.44 MG/DL (0.55-1.30); GLOMERULAR FILTRATION RATE 21.2 (>45); POTASSIUM SERUM 5.1 MMOL/L (3.5-5.1)
[2022-08-23 12:32] LABS: PERCENT SATURATION 71.3 % (13.2-45.0)
[2022-08-23 12:34] LABS: FERRITIN 764.7 NG/ML (7.3-270.7)
[2022-08-23 12:35] LABS: FOLATE 4.27 NG/ML (>5.4)
[2022-08-23] MEDS: INSULIN LISPRO (NovoLOG) PER UNIT SC SCH ×3 (12:50→20:43)
[2022-08-23] MEDS: metroNIDAZOLE (FLAGYL) 500MG TABLET PO SCH ×2 (12:50→21:19)
[2022-08-23] MEDS ORDERED: FUROSEMIDE 100MG/10ML VIAL IV ONE (13:00)
[2022-08-23 18:30] LABS: HEMATOCRIT 21.1 % (36.0-47.0); HEMOGLOBIN 7.2 g/dl (12.0-15.5)
[2022-08-23] MEDS: CYANOCOBALAMIN 500 MCG TAB PO SCH (18:38)
[2022-08-23] MEDS: MULTIVITAMINS/MINERALS THERAP 1 TAB PO SCH (18:38)
[2022-08-23] MEDS: FOLIC ACID 1MG TAB PO SCH (18:39)
[2022-08-24] VITALS (13 sets, daily range): BP systolic 124–149; BP diastolic 58–75
[2022-08-24 00:42] LABS: HEMOGLOBIN 6.8 g/dl (12.0-15.5)
[2022-08-24] MEDS: metroNIDAZOLE (FLAGYL) 500MG TABLET PO SCH ×3 (05:47→21:18)
[2022-08-24] MEDS: INSULIN LISPRO (NovoLOG) PER UNIT SC SCH ×4 (08:40→21:00)
[2022-08-24] MEDS: MULTIVITAMINS/MINERALS THERAP 1 TAB PO SCH (08:41)
[2022-08-24] MEDS: CYANOCOBALAMIN 500 MCG TAB PO SCH (08:41)
[2022-08-24] MEDS: FOLIC ACID 1MG TAB PO SCH (08:41)
[2022-08-24] MEDS: CIPROFLOXACIN 500MG TABLET PO SCH (08:41)
[2022-08-24] MEDS ORDERED: LEVEMIR (INSULIN DETEMIR) 1 UNITS/0.01ML SC SCH (09:00)
[2022-08-24] MEDS ORDERED: FUROSEMIDE 100MG/10ML VIAL IV ONE ×2 (09:00→11:00)
[2022-08-24] MEDS ORDERED: HOME MED LIST COMPLETE! XX SCH (09:00)
[2022-08-24 11:13] LABS: BASO % 0.7 % (0.0-1.0); EOS # 0.1 10^3/uL (0.0-0.5); EOS % 3.4 % (0.0-3.0); HEMATOCRIT 25.5 % (36.0-47.0); HEMOGLOBIN 8.6 g/dl (12.0-15.5); LYMPH # 0.8 10^3/uL (1.5-5.0); LYMPH % 19.7 % (24.0-44.0); MEAN CORPUSCULAR HEMOGLOBIN 29.6 pg (27.0-33.0); MEAN CORPUSCULAR HGB CONC 33.7 g/dl (32.0-36.5); MEAN CORPUSCULAR VOLUME 87.6 fl (80.0-96.0); MONO # 0.3 10^3/uL (0.0-0.8); MONO % 6.8 % (2.0-8.0); NEUTROPHILS # 2.8 10^3/uL (1.5-8.5); NEUTROPHILS % 68.7 % (36.0-66.0); PLATELET COUNT, AUTOMATED 130 10^3/uL (150-450); RED BLOOD COUNT 2.91 10^6/uL (4.00-5.40); WHITE BLOOD COUNT 4.1 10^3/uL (4.0-10.0)
[2022-08-24 11:50] LABS: ALBUMIN 1.7 G/DL (3.2-5.2); CALCIUM LEVEL 7.2 MG/DL (8.3-10.6); CREATININE FOR GFR 2.34 MG/DL (0.55-1.30); GLOMERULAR FILTRATION RATE 22.3 (>45); POTASSIUM SERUM 4.7 MMOL/L (3.5-5.1); TOTAL PROTEIN 4.8 G/DL (5.7-8.2)
[2022-08-24] MEDS: FUROSEMIDE 100MG/10ML VIAL IV SCH (17:34)
[2022-08-24 20:05] LABS: HEMATOCRIT 25.5 % (36.0-47.0); HEMOGLOBIN 8.9 g/dl (12.0-15.5); MEAN CORPUSCULAR HEMOGLOBIN 30.2 pg (27.0-33.0); MEAN CORPUSCULAR HGB CONC 34.9 g/dl (32.0-36.5); MEAN CORPUSCULAR VOLUME 86.4 fl (80.0-96.0); PLATELET COUNT, AUTOMATED 166 10^3/uL (150-450); RED BLOOD COUNT 2.95 10^6/uL (4.00-5.40); WHITE BLOOD COUNT 4.3 10^3/uL (4.0-10.0)
[2022-08-24] MEDS: DEXTROSE 50% 50ML SYRINGE IV PRN (20:58)
[2022-08-25] MEDS ORDERED: D5W/0.9% SODIUM CHLORIDE 1,000 ML IV SCH (02:20)
[2022-08-25] MEDS: DEXTROSE 50% 50ML SYRINGE IV PRN (02:22)
[2022-08-25] MEDS: metroNIDAZOLE (FLAGYL) 500MG TABLET PO SCH ×2 (05:28→13:24)
[2022-08-25 05:50] VITALS: BP 155/79
[2022-08-25 05:57] LABS: BASO # 0.1 10^3/uL (0.0-0.2); BASO % 1.3 % (0.0-1.0); EOS # 0.1 10^3/uL (0.0-0.5); EOS % 3.6 % (0.0-3.0); HEMOGLOBIN 8.6 g/dl (12.0-15.5); LYMPH % 25.5 % (24.0-44.0); MEAN CORPUSCULAR HEMOGLOBIN 29.4 pg (27.0-33.0); MEAN CORPUSCULAR HGB CONC 33.1 g/dl (32.0-36.5); MEAN CORPUSCULAR VOLUME 88.7 fl (80.0-96.0); MONO # 0.4 10^3/uL (0.0-0.8); MONO % 10.2 % (2.0-8.0); NEUTROPHILS # 2.2 10^3/uL (1.5-8.5); NEUTROPHILS % 58.4 % (36.0-66.0); RED BLOOD COUNT 2.93 10^6/uL (4.00-5.40); WHITE BLOOD COUNT 3.8 10^3/uL (4.0-10.0)
[2022-08-25 06:21] LABS: ALBUMIN 1.8 G/DL (3.2-5.2); BILIRUBIN,DIRECT 0.2 MG/DL (<0.4); BILIRUBIN,TOTAL 0.4 MG/DL (0.3-1.2); CALCIUM LEVEL 7.6 MG/DL (8.3-10.6); CREATININE FOR GFR 2.18 MG/DL (0.55-1.30); GLOMERULAR FILTRATION RATE 24.2 (>45); MAGNESIUM LEVEL 2.1 MG/DL (1.8-2.4); POTASSIUM SERUM 4.7 MMOL/L (3.5-5.1); TOTAL PROTEIN 4.9 G/DL (5.7-8.2)
[2022-08-25 07:00] LABS: PLATELET COUNT, AUTOMATED 151 10^3/uL (150-450)
[2022-08-25] MEDS: CIPROFLOXACIN 500MG TABLET PO SCH (09:11)
[2022-08-25] MEDS: CYANOCOBALAMIN 500 MCG TAB PO SCH (09:11)
[2022-08-25] MEDS: MULTIVITAMINS/MINERALS THERAP 1 TAB PO SCH (09:11)
[2022-08-25] MEDS: FOLIC ACID 1MG TAB PO SCH (09:11)
[2022-08-25] MEDS: FUROSEMIDE 100MG/10ML VIAL IV SCH (09:12)
[2022-08-25] MEDS ORDERED: CIPR500T39 PO (11:16)
[2022-08-25] MEDS ORDERED: VITA500T40 PO (11:16)
[2022-08-25] MEDS ORDERED: FOLI1TAB11 PO (11:16)
[2022-08-25] MEDS ORDERED: METR-265 PO (11:16)
[2022-08-25] MEDS ORDERED: LASI40TA9 PO (11:20)
[2022-08-25] MEDS ORDERED: DEXTROSE 50% 50ML SYRINGE IV SCH (12:00)
[2022-08-25] MEDS ORDERED: INSULIN LISPRO (NovoLOG) PER UNIT SC SCH (12:00)
== END 2022-08-25 13:53 | disposition home or self-care (01) | DRG 565 ==
LOC: M ED 01:02 → M ED INP 03:38 → ENRESERV 04:30 → M MSPAV 05:30
PROVIDERS: ADMIT Family Medicine; ATTEND Internal Medicine Nephrology
PROC: 30233N1 Transfusion of Nonautologous Red Blood Cells into Peripheral Vein, Percutaneous Approach (ICD-10-PCS; principal; 2022-08-23)
DX: T87.89 Other complications of amputation stump (principal); D62 Acute posthemorrhagic anemia; N17.9 Acute kidney failure, unspecified; N25.81 Secondary hyperparathyroidism of renal origin; E10.22 Type 1 diabetes mellitus with diabetic chronic kidney disease; N18.31 Chronic kidney disease, stage 3a; I12.9 Hypertensive chronic kidney disease with stage 1 through stage 4 chronic kidney disease, or unspecified chronic kidney disease; E78.5 Hyperlipidemia, unspecified; K21.9 Gastro-esophageal reflux disease without esophagitis; E53.8 Deficiency of other specified B group vitamins; E87.70 Fluid overload, unspecified; G47.33 Obstructive sleep apnea (adult) (pediatric); Z79.4 Long term (current) use of insulin; M81.0 Age-related osteoporosis without current pathological fracture; Z88.0 Allergy status to penicillin; Z91.018 Allergy to other foods; Z91.012 Allergy to eggs; Z79.899 Other long term (current) drug therapy; M19.90 Unspecified osteoarthritis, unspecified site; Z98.41 Cataract extraction status, right eye; Z98.42 Cataract extraction status, left eye; D63.1 Anemia in chronic kidney disease; Y83.5 Amputation of limb(s) as the cause of abnormal reaction of the patient, or of later complication, without mention of misadventure at the time of the procedure

== ENCOUNTER 2022-08-28 20:45 | Observation (INO) | payer MEDICARE, OTHER ==
[~2022-08-28] VITALS: Ht 170.2 cm; Wt 86.4 kg
[~2022-08-28 20:45] MED LIST changes: +FOLI1TAB11 PO; +LASI40TA9 PO; +VITA500T40 PO
[2022-08-28] MEDS ORDERED: LIDOCAINE W/EPINEPHRINE 1% 20ML VIAL SC ONE (22:25)
[2022-08-28] MEDS ORDERED: LIDOCAINE W/EPINEPHRINE 1% 20ML VIAL As Ordered ONE (22:25)
[2022-08-28 23:31] LABS: BASO % 0.9 % (0.0-1.0); EOS # 0.3 10^3/uL (0.0-0.5); EOS % 7.4 % (0.0-3.0); HEMATOCRIT 24.1 % (36.0-47.0); HEMOGLOBIN 7.8 g/dl (12.0-15.5); LYMPH # 0.9 10^3/uL (1.5-5.0); LYMPH % 25.6 % (24.0-44.0); MEAN CORPUSCULAR HEMOGLOBIN 30.1 pg (27.0-33.0); MEAN CORPUSCULAR HGB CONC 32.4 g/dl (32.0-36.5); MEAN CORPUSCULAR VOLUME 93.1 fl (80.0-96.0); MONO # 0.3 10^3/uL (0.0-0.8); MONO % 9.7 % (2.0-8.0); NEUTROPHILS # 1.9 10^3/uL (1.5-8.5); NEUTROPHILS % 55.8 % (36.0-66.0); PLATELET COUNT, AUTOMATED 133 10^3/uL (150-450); RED BLOOD COUNT 2.59 10^6/uL (4.00-5.40); WHITE BLOOD COUNT 3.4 10^3/uL (4.0-10.0)
[2022-08-28 23:49] LABS: INR 1.03; PROTHROMBIN TIME 13.7 SECONDS (12.5-14.5)
[2022-08-28 23:50] LABS: PARTIAL THROMBOPLASTIN TIME 41.4 SECONDS (24.8-34.2)
[2022-08-29] VITALS (7 sets, daily range): BP systolic 122–166; BP diastolic 65–85
[2022-08-29 00:03] LABS: CALCIUM LEVEL 7.7 MG/DL (8.3-10.6); CREATININE FOR GFR 1.98 MG/DL (0.55-1.30); POTASSIUM SERUM 5.1 MMOL/L (3.5-5.1)
[2022-08-29] MEDS ORDERED: DEXTROSE 50% 50ML SYRINGE IV PRN (00:40)
[2022-08-29] MEDS ORDERED: ACETAMINOPHEN TAB 650MG DOSE (2X325MG) PO PRN (00:40)
[2022-08-29] MEDS ORDERED: GLUCAGON INJ 1MG VIAL SC PRN (00:40)
[2022-08-29] MEDS ORDERED: GLUCOSE 4GM CHEW TABLET PO PRN (00:40)
[2022-08-29] MEDS ORDERED: AMLO1TAB25 PO (01:45)
[2022-08-29] MEDS ORDERED: CIPR-249 PO (01:45)
[2022-08-29] MEDS ORDERED: HOME MED LIST COMPLETE! XX SCH (01:45)
[2022-08-29] MEDS ORDERED: METR-265 PO (01:45)
[2022-08-29] MEDS ORDERED: CYAN100050 PO (01:45)
[2022-08-29] MEDS ORDERED: LASI40TA9 PO (01:45)
[2022-08-29] MEDS ORDERED: FOLI1TAB11 PO (01:45)
[2022-08-29 06:33] LABS: ALBUMIN 1.6 G/DL (3.2-5.2); BILIRUBIN,TOTAL 0.4 MG/DL (0.3-1.2); CALCIUM LEVEL 7.6 MG/DL (8.3-10.6); CREATININE FOR GFR 1.9 MG/DL (0.55-1.30); GLOMERULAR FILTRATION RATE 28.3 (>45); MAGNESIUM LEVEL 2.1 MG/DL (1.8-2.4); POTASSIUM SERUM 5.2 MMOL/L (3.5-5.1); TOTAL PROTEIN 4.6 G/DL (5.7-8.2)
[2022-08-29 07:45] LABS: MEAN CORPUSCULAR HEMOGLOBIN 30.1 pg (27.0-33.0); MEAN CORPUSCULAR VOLUME 94.1 fl (80.0-96.0); PLATELET COUNT, AUTOMATED 121 10^3/uL (150-450); RED BLOOD COUNT 2.19 10^6/uL (4.00-5.40); WHITE BLOOD COUNT 2.2 10^3/uL (4.0-10.0)
[2022-08-29 07:58] LABS: HEMATOCRIT 20.6 % (36.0-47.0)
[2022-08-29 08:02] LABS: HEMOGLOBIN 6.6 g/dl (12.0-15.5)
[2022-08-29] MEDS ORDERED: CIPROFLOXACIN 500MG TABLET PO SCH (09:00)
[2022-08-29] MEDS ORDERED: MULTIVITAMINS/MINERALS THERAP 1 TAB PO SCH (09:00)
[2022-08-29] MEDS ORDERED: FOLIC ACID 1MG TAB PO SCH (09:00)
[2022-08-29] MEDS ORDERED: metroNIDAZOLE (FLAGYL) 500MG TABLET PO SCH ×2 (09:00→16:00)
[2022-08-29] MEDS ORDERED: FUROSEMIDE 40 MG TAB PO SCH (09:00)
[2022-08-29] MEDS ORDERED: PATIROMER SORBITEX CALCIUM 8.4 GM POWDER PACKET (VELTASSA) PO ONE (11:20)
[2022-08-29 15:42] LABS: HEMATOCRIT 27.6 % (36.0-47.0)
[2022-08-29 15:46] LABS: HEMOGLOBIN 8.9 g/dl (12.0-15.5)
[2022-08-30] MEDS ORDERED: CIPROFLOXACIN 500MG TABLET PO SCH (09:00)
== END 2022-08-29 17:30 | disposition home or self-care (01) ==
LOC: M ED 20:45 → M ED INP 20:46 → ENRESERV 08-29 00:49 → M MS5PR 08-29 02:15
PROVIDERS: ADMIT Family Medicine; ATTEND Family Medicine
DX: D62 Acute posthemorrhagic anemia (principal); T87.89 Other complications of amputation stump; E10.9 Type 1 diabetes mellitus without complications; Z96.41 Presence of insulin pump (external) (internal); N18.30 Chronic kidney disease, stage 3 unspecified; I12.9 Hypertensive chronic kidney disease with stage 1 through stage 4 chronic kidney disease, or unspecified chronic kidney disease; E87.5 Hyperkalemia; R26.89 Other abnormalities of gait and mobility; Z79.899 Other long term (current) drug therapy; Z88.0 Allergy status to penicillin
CPT/HCPCS: 36415; 36430; 80048; 80053; 83605; 83735; 85014; 85018; 85025; 85027; 85610; 85730; 86850; 86900; 86901; 86920; 87040; 87635; 96372; 97161; 97530; 99284; G0378; P9016

== ENCOUNTER → 2022-09-03 | Outpatient (CLI) | payer MEDICARE, OTHER ==
[~2022-09-03] MED LIST changes: +CYAN100050 PO
[2022-09-03 15:22] LABS: BASO # 0.1 10^3/uL (0.0-0.2); BASO % 1.6 % (0.0-1.0); EOS # 0.3 10^3/uL (0.0-0.5); EOS % 10.2 % (0.0-3.0); HEMATOCRIT 26.1 % (36.0-47.0); HEMOGLOBIN 8.4 g/dl (12.0-15.5); LYMPH # 0.8 10^3/uL (1.5-5.0); LYMPH % 25.9 % (24.0-44.0); MEAN CORPUSCULAR HEMOGLOBIN 30.5 pg (27.0-33.0); MEAN CORPUSCULAR HGB CONC 32.2 g/dl (32.0-36.5); MEAN CORPUSCULAR VOLUME 94.9 fl (80.0-96.0); MONO # 0.3 10^3/uL (0.0-0.8); MONO % 9.5 % (2.0-8.0); NEUTROPHILS # 1.6 10^3/uL (1.5-8.5); NEUTROPHILS % 52.5 % (36.0-66.0); PLATELET COUNT, AUTOMATED 149 10^3/uL (150-450); RED BLOOD COUNT 2.75 10^6/uL (4.00-5.40); WHITE BLOOD COUNT 3.1 10^3/uL (4.0-10.0)
[2022-09-03 16:08] LABS: ALBUMIN 2.6 G/DL (3.2-5.2); BILIRUBIN,TOTAL 1.1 MG/DL (0.3-1.2); CALCIUM LEVEL 8.3 MG/DL (8.3-10.6); CREATININE FOR GFR 1.85 MG/DL (0.55-1.30); GLOMERULAR FILTRATION RATE 29.2 (>45); TOTAL PROTEIN 5.9 G/DL (5.7-8.2)
== END ==
LOC: M PLALAB 11:14
PROVIDERS: ATTEND Student in an Organized Health Care Education/Training Program
DX: D50.0 Iron deficiency anemia secondary to blood loss (chronic) (principal)

== ENCOUNTER → 2022-09-12 | Outpatient (REF) | payer MEDICARE, OTHER, MEDICAID | LOC: M LAB REF 17:00 | PROVIDERS: ATTEND Nurse Practitioner Family | DX: D64.9 Anemia, unspecified (principal) ==

== ENCOUNTER → 2022-09-22 | Outpatient (CLI) | payer MEDICARE, OTHER ==
[2022-09-22 10:27] LABS: CALCIUM LEVEL 8.5 MG/DL (8.3-10.6); CREATININE FOR GFR 1.43 MG/DL (0.55-1.30); GLOMERULAR FILTRATION RATE 39.3 (>45); POTASSIUM SERUM 3.5 MMOL/L (3.5-5.1)
[2022-09-24 15:10] LABS: C-PEPTIDE < 0.1 ng/mL (1.1-4.4); ISLET CELL ANTIBODIES Negative (Neg:<1:1)
== END ==
LOC: M LAB 09:19
PROVIDERS: ATTEND Nurse Practitioner Family
DX: E10.65 Type 1 diabetes mellitus with hyperglycemia (principal)

== ENCOUNTER → 2022-09-25 | Outpatient (REF) | payer MEDICARE, OTHER ==
[2022-09-25 11:39] LABS: TOTAL PROTEIN,RANDOM URINE 386.5 MG/DL (0.0-14.0)
== END ==
LOC: M LAB REF 10:22
PROVIDERS: ATTEND Nurse Practitioner Family
DX: R80.9 Proteinuria, unspecified (principal)

== ENCOUNTER 2022-09-26 08:50 | Outpatient (CLI) | payer MEDICARE, OTHER ==
[~2022-09-26] VITALS: Ht 170.2 cm; Wt 82.7 kg
[2022-09-26 09:29] VITALS: BP 168/74
[2022-09-26 09:45] VITALS: BP 161/70
[2022-09-26 10:55] VITALS: BP 182/81
[2022-09-26 11:09] VITALS: BP 182/84
[2022-09-26 11:25] VITALS: BP 183/80
[2022-09-26 12:40] VITALS: BP 170/80
== END 2022-09-26 12:50 | disposition home or self-care (01) ==
LOC: M INFU 08:50
PROVIDERS: ATTEND Internal Medicine Nephrology
DX: D50.9 Iron deficiency anemia, unspecified (principal); Z88.0 Allergy status to penicillin; Z91.012 Allergy to eggs; Z91.018 Allergy to other foods
CPT/HCPCS: 36430; 36592; P9016

== ENCOUNTER 2022-11-06 09:07 | Emergency (ER) | payer MEDICARE, OTHER ==
[~2022-11-06] VITALS: Ht 167.6 cm; Wt 76.6 kg
[~2022-11-06 09:07] MED LIST changes: +CYAN-1 PO; -CYAN100050 PO; +METO5TAB2; +RA M500C PO; +SPIR-10
[2022-11-06 11:41] LABS: VENOUS BASE EXCESS -2.2 (-2.0-2.0); VENOUS HCO3 24.7 MMOL/L (23.0-27.0); VENOUS O2 SATURATION 76.7 % (60.0-80.0); VENOUS PARTIAL PRESSURE CO2 51.8 mmHg (38.0-50.0); VENOUS PARTIAL PRESSURE O2 44.4 mmHg (30.0-50.0); VENOUS PH 7.296 UNITS (7.330-7.430); VENOUS STANDARD HCO3 22.2 MMOL/L; VENOUS TOTAL CO2 26.3 MMOL/L (24.0-28.0)
[2022-11-06 11:48] LABS: BASO % 0.9 % (0.0-1.0); EOS # 0.1 10^3/uL (0.0-0.5); EOS % 3.2 % (0.0-3.0); HEMATOCRIT 30.8 % (36.0-47.0); HEMOGLOBIN 10.2 g/dl (12.0-15.5); LYMPH # 0.7 10^3/uL (1.5-5.0); LYMPH % 29.3 % (24.0-44.0); MEAN CORPUSCULAR HEMOGLOBIN 30.8 pg (27.0-33.0); MEAN CORPUSCULAR HGB CONC 33.1 g/dl (32.0-36.5); MEAN CORPUSCULAR VOLUME 93.1 fl (80.0-96.0); MONO # 0.2 10^3/uL (0.0-0.8); MONO % 6.8 % (2.0-8.0); NEUTROPHILS # 1.3 10^3/uL (1.5-8.5); NEUTROPHILS % 59.3 % (36.0-66.0); RED BLOOD COUNT 3.31 10^6/uL (4.00-5.40); WHITE BLOOD COUNT 2.2 10^3/uL (4.0-10.0)
[2022-11-06 12:18] LABS: PLATELET COUNT, AUTOMATED 82 10^3/uL (150-450)
[2022-11-06 12:20] LABS: ALBUMIN 3.5 G/DL (3.2-5.2); ALKALINE PHOSPHATASE 63 U/L (46-116); ALT/SGPT < 9 U/L (7.0-40); AST/SGOT 24 U/L (<34); BILIRUBIN,DIRECT 0.5 MG/DL (<0.4); BILIRUBIN,TOTAL 2.1 MG/DL (0.3-1.2); BLOOD UREA NITROGEN 23 MG/DL (9-23); CALCIUM LEVEL 8.9 MG/DL (8.3-10.6); CARBON DIOXIDE LEVEL 24 MMOL/L (20-31); CHLORIDE LEVEL 108 MMOL/L (98-107); CREATININE FOR GFR 1.24 MG/DL (0.55-1.30); GLOMERULAR FILTRATION RATE 46.4 (>45); GLUCOSE, FASTING 219 MG/DL (74-106); SODIUM LEVEL 140 MMOL/L (136-145); TOTAL PROTEIN 6.6 G/DL (5.7-8.2)
[2022-11-06] MEDS ORDERED: METO5TAB2 PO (12:23)
[2022-11-06 12:31] LABS: OSMOLALITY SERUM 301 MOSM/KG (280-301)
[2022-11-06] MEDS ORDERED: SPIR-10 PO (14:19)
[2022-11-06] MEDS: amLODIPine 5 MG TAB PO ONE (14:38)
[2022-11-06] MEDS: SPIRONOLACTONE 25 MG TAB PO SCH (14:38)
[2022-11-06 17:10] VITALS: BP 219/98
[2022-11-06] MEDS: LABETALOL 100MG/20ML VIAL IV STA (17:10)
[2022-11-06 18:26] VITALS: BP 188/84; TEMP 97.4; O2SAT 98
[2022-11-25] MEDS ORDERED: AMLO1TAB24 (14:23)
== END 2022-11-06 18:47 | disposition home or self-care (01) ==
LOC: M ED 09:07
DX: R31.9 Hematuria, unspecified (principal); I10 Essential (primary) hypertension; D61.818 Other pancytopenia; E11.9 Type 2 diabetes mellitus without complications; E78.5 Hyperlipidemia, unspecified; G47.33 Obstructive sleep apnea (adult) (pediatric); N18.9 Chronic kidney disease, unspecified; Z88.0 Allergy status to penicillin; Z91.012 Allergy to eggs; Z91.018 Allergy to other foods; Z79.4 Long term (current) use of insulin; Z79.810 Long term (current) use of selective estrogen receptor modulators (SERMs); Z79.899 Other long term (current) drug therapy
CPT/HCPCS: 70450; 74176; 80048; 80076; 81001; 82140; 82803; 83930; 85025; 85049; 85055; 87486; 87581; 87633; 87798; 93005; 96374; 99284; J1920

== ENCOUNTER → 2022-11-08 | Outpatient (CLI) | payer MEDICARE, OTHER ==
[~2022-11-08] MED LIST changes: +METO5TAB2 PO; +SPIR-10 PO
[2022-11-08 13:31] LABS: INR 0.92; PROTHROMBIN TIME 12.6 SECONDS (12.5-14.5)
== END ==
LOC: M LAB 12:44
PROVIDERS: ATTEND Specialist
DX: D61.818 Other pancytopenia (principal)

== ENCOUNTER → 2022-11-11 | Outpatient (CLI) | payer MEDICARE, OTHER ==
[~2022-11-11] MED LIST changes: +LIDOCAINE 1% MDV 20ML VIAL As Ordered ONE
[2022-11-11 08:12] VITALS: TEMP 98.1
[2022-11-11 08:57] LABS: BASO % 1.3 % (0.0-1.0); EOS # 0.1 10^3/uL (0.0-0.5); HEMATOCRIT 30.1 % (36.0-47.0); HEMOGLOBIN 9.6 g/dl (12.0-15.5); LYMPH # 0.7 10^3/uL (1.5-5.0); LYMPH % 30.5 % (24.0-44.0); MEAN CORPUSCULAR HEMOGLOBIN 30.5 pg (27.0-33.0); MEAN CORPUSCULAR HGB CONC 31.9 g/dl (32.0-36.5); MEAN CORPUSCULAR VOLUME 95.6 fl (80.0-96.0); MONO # 0.2 10^3/uL (0.0-0.8); MONO % 8.4 % (2.0-8.0); NEUTROPHILS # 1.3 10^3/uL (1.5-8.5); NEUTROPHILS % 54.8 % (36.0-66.0); PLATELET COUNT, AUTOMATED 126 10^3/uL (150-450); RED BLOOD COUNT 3.15 10^6/uL (4.00-5.40); WHITE BLOOD COUNT 2.4 10^3/uL (4.0-10.0)
[2022-11-11 09:27] VITALS: O2SAT 100
[2022-11-11 09:38] VITALS: BP 213/102
== END ==
LOC: M IRPRO 07:54
PROVIDERS: ATTEND Specialist
DX: D61.818 Other pancytopenia (principal)

== ENCOUNTER → 2022-12-24 | Outpatient (REF) | payer MEDICARE, OTHER ==
[~2022-12-24] MED LIST changes: +AMLO1TAB24; -LIDOCAINE 1% MDV 20ML VIAL As Ordered ONE
== END ==
LOC: M SMT 17:15
PROVIDERS: ATTEND Specialist
DX: R31.29 Other microscopic hematuria (principal)

== ENCOUNTER → 2023-02-11 | Outpatient (REF) | payer MEDICARE, OTHER ==
[~2023-02-11] MED LIST changes: -CEFD300C41 PO; +CEFD300C42 PO; +LEVO50TA5
== END ==
LOC: M SFHCPLAZ 17:25
PROVIDERS: ATTEND Student in an Organized Health Care Education/Training Program
DX: E10.621 Type 1 diabetes mellitus with foot ulcer (principal)

== ENCOUNTER → 2023-03-05 | Outpatient (CLI) | payer MEDICARE, OTHER ==
[2023-03-05 16:11] LABS: BASO % 1.1 % (0.0-1.0); EOS # 0.1 10^3/uL (0.0-0.5); EOS % 3.2 % (0.0-3.0); HEMATOCRIT 32.2 % (36.0-47.0); HEMOGLOBIN 10.2 g/dl (12.0-15.5); LYMPH # 0.9 10^3/uL (1.5-5.0); LYMPH % 23.7 % (24.0-44.0); MEAN CORPUSCULAR HEMOGLOBIN 29.8 pg (27.0-33.0); MEAN CORPUSCULAR HGB CONC 31.7 g/dl (32.0-36.5); MEAN CORPUSCULAR VOLUME 94.2 fl (80.0-96.0); MONO # 0.3 10^3/uL (0.0-0.8); MONO % 8.7 % (2.0-8.0); NEUTROPHILS # 2.4 10^3/uL (1.5-8.5); NEUTROPHILS % 62.8 % (36.0-66.0); PLATELET COUNT, AUTOMATED 206 10^3/uL (150-450); RED BLOOD COUNT 3.42 10^6/uL (4.00-5.40); WHITE BLOOD COUNT 3.8 10^3/uL (4.0-10.0)
[2023-03-05 16:33] LABS: CREATININE FOR GFR 1.27 MG/DL (0.55-1.30); GLOMERULAR FILTRATION RATE 45.1 (>45); POTASSIUM SERUM 4.8 MMOL/L (3.5-5.1)
[2023-03-05 16:59] LABS: ERYTHROCYTE SEDIMENTATION RATE 64 mm/hr (0-30)
== END ==
LOC: M PLAIMG 12:34
PROVIDERS: ATTEND Internal Medicine Infectious Disease
DX: M86.272 Subacute osteomyelitis, left ankle and foot (principal); M79.89 Other specified soft tissue disorders; M77.32 Calcaneal spur, left foot; M20.42 Other hammer toe(s) (acquired), left foot; M21.6X2 Other acquired deformities of left foot; S93.106A Unspecified dislocation of unspecified toe(s), initial encounter; X58.XXXA Exposure to other specified factors, initial encounter; Y92.9 Unspecified place or not applicable; Y93.9 Activity, unspecified; Y99.9 Unspecified external cause status

== ENCOUNTER → 2023-03-30 | Outpatient (CLI) | payer MEDICARE, OTHER | LOC: M CARPUL 09:40 | PROVIDERS: ATTEND Student in an Organized Health Care Education/Training Program | DX: R01.1 Cardiac murmur, unspecified (principal) ==

== ENCOUNTER → 2023-05-14 | Outpatient (CLI) | payer MEDICARE ==
[~2023-05-14] MED LIST changes: +CEFD1CAP9 PO; -CEFD300C42 PO; -FLUT50SP17; +FLUTISP; +LIDOCAINE 1% MDV 20ML VIAL As Ordered ONE
[2023-05-14 12:15] VITALS: BP 140/76; TEMP 97.8; O2SAT 100
[2023-05-14 13:08] LABS: BASO % 1.3 % (0.0-1.0); EOS % 1.7 % (0.0-3.0); HEMATOCRIT 36.2 % (36.0-47.0); HEMOGLOBIN 11.6 g/dl (12.0-15.5); LYMPH # 0.9 10^3/uL (1.5-5.0); LYMPH % 39.5 % (24.0-44.0); MEAN CORPUSCULAR HEMOGLOBIN 30.4 pg (27.0-33.0); MEAN CORPUSCULAR VOLUME 94.8 fl (80.0-96.0); MONO # 0.3 10^3/uL (0.0-0.8); MONO % 12.9 % (2.0-8.0); NEUTROPHILS % 44.6 % (36.0-66.0); PLATELET COUNT, AUTOMATED 116 10^3/uL (150-450); RED BLOOD COUNT 3.82 10^6/uL (4.00-5.40); WHITE BLOOD COUNT 2.3 10^3/uL (4.0-10.0)
== END ==
LOC: M IRPRO 12:07
PROVIDERS: ATTEND Nurse Practitioner
DX: D61.818 Other pancytopenia (principal)

== ENCOUNTER → 2023-07-01 | Outpatient (REF) | payer MEDICARE, OTHER ==
[~2023-07-01] MED LIST changes: -LIDOCAINE 1% MDV 20ML VIAL As Ordered ONE; +LISI10TA22 PO; +THERTAB52 PO
[2023-07-01 17:52] LABS: APPEARANCE, URINE CLEAR (CLEAR); BACTERIA, URINE AUTO NEGATIVE (NEGATIVE); BILIRUBIN, URINE AUTO NEGATIVE (NEGATIVE); BLOOD, URINE BLOOD NEGATIVE (NEGATIVE); COLOR, URINE STRAW (YELLOW); GLUCOSE, URINE (UA) AUTO NEGATIVE (NEGATIVE); KETONE, URINE AUTO NEGATIVE (NEGATIVE); LEUKOCYTE ESTERASE, URINE AUTO NEGATIVE (NEGATIVE); NITRITE, URINE AUTO NEGATIVE (NEGATIVE); PROTEIN, URINE AUTO NEGATIVE (NEGATIVE); RBC, URINE AUTO 0 /HPF (0-3); SPECIFIC GRAVITY URINE AUTO 1.008 (1.002-1.035); SQUAMOUS EPITHELIAL CELL UR AU 0 /HPF (0-6); UROBILINOGEN, URINE AUTO 0.2 mg/dL (0.0-2.0); WBC, URINE AUTO 1 /HPF (0-3)
== END ==
LOC: M SMT 16:48
PROVIDERS: ATTEND Specialist
DX: R31.29 Other microscopic hematuria (principal)

== ENCOUNTER → 2023-08-11 | Outpatient (REF) | payer MEDICARE, MEDICAID | LOC: M LAB REF 16:48 | PROVIDERS: ATTEND Nurse Practitioner Family | DX: N39.0 Urinary tract infection, site not specified (principal) ==

== ENCOUNTER → 2023-09-22 | Outpatient (REF) | payer MEDICARE ==
[~2023-09-22] MED LIST changes: +DOXY-440 PO; -DOXY-444 PO
== END ==
LOC: M SFHCPLAZ 16:33
PROVIDERS: ATTEND Family Medicine
DX: M81.0 Age-related osteoporosis without current pathological fracture (principal); Z11.59 Encounter for screening for other viral diseases

== ENCOUNTER → 2023-09-22 | Outpatient (CLI) | payer MEDICARE, MEDICAID ==
[~2023-09-22] MED LIST changes: +ATOR40TA75 PO; -LEVO50TA5; +LEVO50TA5 PO
[2023-09-22 15:46] LABS: CHOLESTEROL LEVEL 139 MG/DL (<200); HDL CHOLESTEROL 60.2 MG/DL (>40); LDL CHOLESTEROL 69.2 MG/DL (<100); NON-HDL-C 78.8 MG/DL; TRIGLYCERIDES LEVEL 48 MG/DL (<150)
[2023-09-22 15:47] LABS: TOTAL 25(OH) VITAMIN D 31.2 NG/ML (20.0-100.0)
[2023-09-22 15:49] LABS: FREE T4 0.95 NG/DL (0.89-1.76)
[2023-09-22 16:12] LABS: HIV 1&2 SCREEN NEGATIVE (NEGATIVE)
[2023-09-22 16:20] LABS: HEPATITIS C VIRUS ABY INDEX < 0.02 INDEX (<0.8)
== END ==
LOC: M PLALAB 11:40
PROVIDERS: ATTEND Student in an Organized Health Care Education/Training Program
DX: M81.0 Age-related osteoporosis without current pathological fracture (principal); Z11.59 Encounter for screening for other viral diseases; E03.9 Hypothyroidism, unspecified; E78.00 Pure hypercholesterolemia, unspecified; Z11.4 Encounter for screening for human immunodeficiency virus [HIV]

== ENCOUNTER → 2023-10-01 | Outpatient (REF) | payer MEDICARE | LOC: M SFHCPLAZ 14:53 | PROVIDERS: ATTEND Student in an Organized Health Care Education/Training Program | DX: E10.621 Type 1 diabetes mellitus with foot ulcer (principal) ==

== ENCOUNTER → 2023-10-01 | Outpatient (CLI) | payer MEDICARE ==
[~2023-10-01] MED LIST changes: +FLAG375C PO
[2023-10-01 16:20] LABS: BASO % 0.4 % (0.0-1.0); EOS % 0.8 % (0.0-3.0); HEMATOCRIT 37.8 % (36.0-47.0); HEMOGLOBIN 12.3 g/dl (12.0-15.5); LYMPH % 20.1 % (24.0-44.0); MEAN CORPUSCULAR HEMOGLOBIN 31.4 pg (27.0-33.0); MEAN CORPUSCULAR HGB CONC 32.5 g/dl (32.0-36.5); MEAN CORPUSCULAR VOLUME 96.4 fl (80.0-96.0); MONO # 0.3 10^3/uL (0.0-0.8); MONO % 5.5 % (2.0-8.0); NEUTROPHILS # 3.4 10^3/uL (1.5-8.5); NEUTROPHILS % 72.8 % (36.0-66.0); PLATELET COUNT, AUTOMATED 203 10^3/uL (150-450); RED BLOOD COUNT 3.92 10^6/uL (4.00-5.40); WHITE BLOOD COUNT 4.7 10^3/uL (4.0-10.0)
[2023-10-01 16:40] LABS: C REACTIVE PROTEIN QUANTITATIV 8.3 MG/DL (<1.0)
[2023-10-01 16:42] LABS: ALBUMIN 3.8 G/DL (3.2-5.2); BILIRUBIN,TOTAL 0.7 MG/DL (0.3-1.2); CALCIUM LEVEL 9.5 MG/DL (8.3-10.6); CREATININE FOR GFR 2.35 MG/DL (0.55-1.30); GLOMERULAR FILTRATION RATE 22.1 (>45); POTASSIUM SERUM 4.7 MMOL/L (3.5-5.1); TOTAL PROTEIN 7.5 G/DL (5.7-8.2)
[2023-10-01 16:49] LABS: PROCALCITONIN 0.5 ng/ml
== END ==
LOC: M RAD 13:31 → M PLALAB 13:31
PROVIDERS: ATTEND Student in an Organized Health Care Education/Training Program
DX: E10.621 Type 1 diabetes mellitus with foot ulcer (principal); M19.072 Primary osteoarthritis, left ankle and foot; M77.32 Calcaneal spur, left foot

== ENCOUNTER 2023-10-02 08:40 | Inpatient (IN) | payer MEDICARE ==
[~2023-10-02] VITALS: Ht 167.6 cm; Wt 77.0 kg
[~2023-10-02 08:40] MED LIST changes: -ATOR40TA75 PO; -FLAG375C PO
[2023-10-02 10:06] LABS: BASO % 0.6 % (0.0-1.0); EOS # 0.1 10^3/uL (0.0-0.5); EOS % 2.5 % (0.0-3.0); HEMATOCRIT 37.4 % (36.0-47.0); HEMOGLOBIN 12.2 g/dl (12.0-15.5); LYMPH # 0.8 10^3/uL (1.5-5.0); LYMPH % 21.5 % (24.0-44.0); MEAN CORPUSCULAR HEMOGLOBIN 31.6 pg (27.0-33.0); MEAN CORPUSCULAR HGB CONC 32.6 g/dl (32.0-36.5); MEAN CORPUSCULAR VOLUME 96.9 fl (80.0-96.0); MONO # 0.3 10^3/uL (0.0-0.8); MONO % 8.5 % (2.0-8.0); NEUTROPHILS # 2.4 10^3/uL (1.5-8.5); NEUTROPHILS % 66.6 % (36.0-66.0); PLATELET COUNT, AUTOMATED 188 10^3/uL (150-450); RED BLOOD COUNT 3.86 10^6/uL (4.00-5.40); WHITE BLOOD COUNT 3.6 10^3/uL (4.0-10.0)
[2023-10-02 10:34] LABS: CALCIUM LEVEL 9.3 MG/DL (8.3-10.6); CREATININE FOR GFR 2.56 MG/DL (0.55-1.30); POTASSIUM SERUM 4.3 MMOL/L (3.5-5.1)
[2023-10-02 12:20] LABS: C REACTIVE PROTEIN QUANTITATIV 4.7 MG/DL (<1.0)
[2023-10-02 12:27] LABS: ERYTHROCYTE SEDIMENTATION RATE 66 mm/hr (0-30)
[2023-10-02] MEDS: NS 500 ML IV ONE ×2 (12:35→14:14)
[2023-10-02] MEDS ORDERED: GLUCOSE 4 GM CHEW PO PRN (14:55)
[2023-10-02] MEDS ORDERED: DEXTROSE 50% 50ML SYRINGE IV PRN (14:55)
[2023-10-02] MEDS ORDERED: GLUCAGON INJ 1MG VIAL SC PRN (14:55)
[2023-10-02] MEDS ORDERED: CEFD1CAP9 PO (15:12)
[2023-10-02] MEDS ORDERED: ATOR40TA75 PO (15:12)
[2023-10-02] MEDS ORDERED: HOME MED LIST COMPLETE! XX SCH (15:20)
[2023-10-02] MEDS: NS 0.45% 1,000 ML IV SCH (15:32)
[2023-10-02] MEDS ORDERED: INSULIN PUMP (PATIENT'S OWN MED) SQ SCH (15:45)
[2023-10-02 16:20] LABS: HEMOGLOBIN A1c 7.6 % (4.0-6.0)
[2023-10-02 17:16] VITALS: BP 133/76; TEMP 97.3; O2SAT 100
[2023-10-02 20:39] VITALS: BP 138/78; TEMP 97.8; O2SAT 98
[2023-10-02] MEDS ORDERED: LEVEMIR (INSULIN DETEMIR) 1 UNITS/0.01ML SC ONE (21:00)
[2023-10-03 06:21] VITALS: BP 121/64; TEMP 97.7; O2SAT 98
[2023-10-03] MEDS: LEVOTHYROXINE 50MCG TABLET (0.05MG) PO SCH (06:45)
[2023-10-03 06:46] LABS: HEMATOCRIT 34.1 % (36.0-47.0); HEMOGLOBIN 11.2 g/dl (12.0-15.5); MEAN CORPUSCULAR HEMOGLOBIN 31.5 pg (27.0-33.0); MEAN CORPUSCULAR HGB CONC 32.8 g/dl (32.0-36.5); MEAN CORPUSCULAR VOLUME 96.1 fl (80.0-96.0); PLATELET COUNT, AUTOMATED 154 10^3/uL (150-450); RED BLOOD COUNT 3.55 10^6/uL (4.00-5.40); WHITE BLOOD COUNT 2.5 10^3/uL (4.0-10.0)
[2023-10-03 07:05] LABS: CALCIUM LEVEL 8.5 MG/DL (8.3-10.6); CREATININE FOR GFR 1.86 MG/DL (0.55-1.30); GLOMERULAR FILTRATION RATE 28.9 (>45)
[2023-10-03] MEDS: ENOXAPARIN 30MG/0.3ML SYRINGE (J1650 PER 10MG) SC SCH (08:01)
[2023-10-03 14:00] VITALS: BP 98/54; TEMP 97.5; O2SAT 99
[2023-10-03] MEDS: LEVEMIR (INSULIN DETEMIR) 1 UNITS/0.01ML SC SCH (20:00)
[2023-10-03 20:11] VITALS: BP 104/68; TEMP 97.7; O2SAT 94
[2023-10-04 00:08] VITALS: BP 107/64; TEMP 97.7; O2SAT 95
[2023-10-04 06:02] LABS: BASO % 1.2 % (0.0-1.0); EOS # 0.2 10^3/uL (0.0-0.5); EOS % 6.1 % (0.0-3.0); HEMATOCRIT 32.2 % (36.0-47.0); HEMOGLOBIN 10.6 g/dl (12.0-15.5); LYMPH # 1.1 10^3/uL (1.5-5.0); LYMPH % 43.9 % (24.0-44.0); MEAN CORPUSCULAR HEMOGLOBIN 31.9 pg (27.0-33.0); MEAN CORPUSCULAR HGB CONC 32.9 g/dl (32.0-36.5); MONO # 0.2 10^3/uL (0.0-0.8); NEUTROPHILS % 39.4 % (36.0-66.0); PLATELET COUNT, AUTOMATED 135 10^3/uL (150-450); RED BLOOD COUNT 3.32 10^6/uL (4.00-5.40); WHITE BLOOD COUNT 2.4 10^3/uL (4.0-10.0)
[2023-10-04 06:31] VITALS: BP 130/70; TEMP 97.1; O2SAT 96
[2023-10-04 06:31] LABS: CALCIUM LEVEL 8.2 MG/DL (8.3-10.6); CREATININE FOR GFR 1.52 MG/DL (0.55-1.30); GLOMERULAR FILTRATION RATE 36.5 (>45); MAGNESIUM LEVEL 2.4 MG/DL (1.8-2.4); POTASSIUM SERUM 4.5 MMOL/L (3.5-5.1)
[2023-10-04 08:13] VITALS: BP 127/69
[2023-10-04 08:22] LABS: ERYTHROCYTE SEDIMENTATION RATE 24 mm/hr (0-30)
[2023-10-04 08:32] LABS: EOS # 0.1 10^3/uL (0.0-0.5); EOS % 6.4 % (0.0-3.0); HEMATOCRIT 32.3 % (36.0-47.0); HEMOGLOBIN 10.6 g/dl (12.0-15.5); LYMPH # 0.8 10^3/uL (1.5-5.0); LYMPH % 39.6 % (24.0-44.0); MEAN CORPUSCULAR HEMOGLOBIN 31.7 pg (27.0-33.0); MEAN CORPUSCULAR HGB CONC 32.8 g/dl (32.0-36.5); MEAN CORPUSCULAR VOLUME 96.7 fl (80.0-96.0); MONO # 0.2 10^3/uL (0.0-0.8); MONO % 7.9 % (2.0-8.0); NEUTROPHILS % 44.6 % (36.0-66.0); PLATELET COUNT, AUTOMATED 133 10^3/uL (150-450); RED BLOOD COUNT 3.34 10^6/uL (4.00-5.40)
[2023-10-04 08:41] LABS: ERYTHROCYTE SEDIMENTATION RATE 26 mm/hr (0-30)
[2023-10-04 08:57] LABS: NEUTROPHILS # 0.9 10^3/uL (1.5-8.5)
[2023-10-04] MEDS ORDERED: AUGMENTIN 875 MG TAB PO SCH (09:00)
[2023-10-05] MEDS ORDERED: FLAG375C PO (10:23)
[2023-10-05] MEDS ORDERED: METR-265 PO ×2 (10:25→10:32)
== END 2023-10-04 13:00 | disposition home or self-care (01) | DRG 623 ==
LOC: M ED 08:40 → M ED INP 14:51 → M MS5PR 16:25
PROVIDERS: ADMIT Family Medicine; ATTEND Hospitalist
PROC: 0JBR0ZZ Excision of Left Foot Subcutaneous Tissue and Fascia, Open Approach (ICD-10-PCS; principal; 2023-10-02)
DX: E10.69 Type 1 diabetes mellitus with other specified complication (principal); M86.271 Subacute osteomyelitis, right ankle and foot; D69.6 Thrombocytopenia, unspecified; E78.5 Hyperlipidemia, unspecified; G47.33 Obstructive sleep apnea (adult) (pediatric); Z89.421 Acquired absence of other right toe(s); E21.1 Secondary hyperparathyroidism, not elsewhere classified; Z91.040 Latex allergy status; Z88.0 Allergy status to penicillin; Z91.018 Allergy to other foods; Z91.012 Allergy to eggs; Z79.899 Other long term (current) drug therapy; Z79.4 Long term (current) use of insulin; N17.9 Acute kidney failure, unspecified; M81.0 Age-related osteoporosis without current pathological fracture; K52.9 Noninfective gastroenteritis and colitis, unspecified; Z91.030 Bee allergy status; E03.9 Hypothyroidism, unspecified; E10.40 Type 1 diabetes mellitus with diabetic neuropathy, unspecified; E10.621 Type 1 diabetes mellitus with foot ulcer; L97.529 Non-pressure chronic ulcer of other part of left foot with unspecified severity

== ENCOUNTER → 2023-11-10 | Outpatient (REF) | payer MEDICARE, MEDICAID ==
[~2023-11-10] MED LIST changes: +ATOR40TA75 PO; +FLAG375C PO; +ONDA-282 PO; -ONDA4TAB6 PO
== END ==
LOC: M LAB REF 17:06
PROVIDERS: ATTEND Nurse Practitioner Family
DX: N39.0 Urinary tract infection, site not specified (principal)

== ENCOUNTER → 2023-11-30 | Outpatient (REF) | payer MEDICARE, MEDICAID ==
[2023-11-30 18:02] LABS: APPEARANCE, URINE CLEAR (CLEAR); BACTERIA, URINE AUTO NEGATIVE (NEGATIVE); BILIRUBIN, URINE AUTO NEGATIVE (NEGATIVE); BLOOD, URINE BLOOD NEGATIVE (NEGATIVE); COLOR, URINE STRAW (YELLOW); GLUCOSE, URINE (UA) AUTO NEGATIVE (NEGATIVE); KETONE, URINE AUTO NEGATIVE (NEGATIVE); LEUKOCYTE ESTERASE, URINE AUTO NEGATIVE (NEGATIVE); NITRITE, URINE AUTO NEGATIVE (NEGATIVE); PROTEIN, URINE AUTO NEGATIVE (NEGATIVE); RBC, URINE AUTO 0 /HPF (0-3); SPECIFIC GRAVITY URINE AUTO 1.008 (1.002-1.035); SQUAMOUS EPITHELIAL CELL UR AU 0 /HPF (0-6); UROBILINOGEN, URINE AUTO 0.2 mg/dL (0.0-2.0); WBC, URINE AUTO 0 /HPF (0-3)
== END ==
LOC: M LAB REF 16:50
PROVIDERS: ATTEND Nurse Practitioner Family
DX: N39.0 Urinary tract infection, site not specified (principal)

== ENCOUNTER → 2023-12-08 | Outpatient (CLI) | payer MEDICARE, MEDICAID | LOC: M WHC 11:00 | PROVIDERS: ATTEND Nurse Practitioner Family | DX: Z12.31 Encounter for screening mammogram for malignant neoplasm of breast (principal) ==

== ENCOUNTER → 2023-12-25 | Outpatient (CLI) | payer MEDICARE ==
[2023-12-25 13:12] LABS: FREE T4 1.01 NG/DL (0.89-1.76); THYROID STIMULATING HORMONE 7.653 uIU/ML (0.55-4.78)
== END ==
LOC: M PLALAB 11:17
PROVIDERS: ATTEND Student in an Organized Health Care Education/Training Program
DX: E03.9 Hypothyroidism, unspecified (principal)

== ENCOUNTER → 2024-03-02 | Outpatient (REF) | payer MEDICARE | LOC: M SFHCPLAZ 20:04 | PROVIDERS: ATTEND Family Medicine | DX: E10.29 Type 1 diabetes mellitus with other diabetic kidney complication (principal); E03.9 Hypothyroidism, unspecified; D72.819 Decreased white blood cell count, unspecified; D64.9 Anemia, unspecified; N18.31 Chronic kidney disease, stage 3a; E55.9 Vitamin D deficiency, unspecified ==

== ENCOUNTER → 2024-07-15 | Outpatient (REF) | payer MEDICARE, MEDICAID ==
[~2024-07-15] MED LIST changes: +LISI10TA22; +TORS10TA3
[2024-07-15 19:09] LABS: FOLATE 13.3 NG/ML (>5.4)
== END ==
LOC: M LAB REF 17:06
PROVIDERS: ATTEND Nurse Practitioner Family
DX: D64.9 Anemia, unspecified (principal)

== ENCOUNTER 2025-04-06 09:08 | Day surgery (SDC) | payer MEDICARE, MEDICAID ==
[~2025-04-06] VITALS: Ht 167.6 cm; Wt 85.3 kg
[~2025-04-06 09:08] MED LIST changes: +CYAN500T14 PO; +D3 H10002 PO; -FISH10005 PO; +FISH1CAP38 PO; +GLUC1AUT; +LEVO75TA4 PO; -LISI10TA22; +LISI40TA10 PO; -LISI40TA4 PO; -TORS10TA3; +TORS10TA3 PO
[2025-04-06] MEDS ORDERED: LIDOCAINE 2% 100 MG/5 ML SDV (FOR ANES.) ONE (10:00)
[2025-04-06 10:29] VITALS: BP 103/53; O2SAT 100
== END 2025-04-06 10:42 | disposition home or self-care (01) ==
LOC: M OPP 09:08
PROVIDERS: ATTEND Surgery
DX: Z12.11 Encounter for screening for malignant neoplasm of colon (principal); G47.30 Sleep apnea, unspecified; Z88.0 Allergy status to penicillin; Z91.030 Bee allergy status; Z91.041 Radiographic dye allergy status; Z91.0120 Allergy to eggs, unspecified; Z91.018 Allergy to other foods; Z79.899 Other long term (current) drug therapy